=== PATIENT | male | born 1940 | race Caucasian/White ===

== ENCOUNTER 2016-11-25 17:44 | Inpatient (IN) | payer BC ==
[~2016-11-25] VITALS: Ht 188 cm; Wt 92.3 kg
[~2016-11-25 17:44] MED LIST: ALPR0.254 PO; ASPI81TA2 PO; CEFE1VIA5 IJ; CIPR500T94 PO; LISI-334 PO; SIMV20TA3 PO; TAMS0.4C2 PO
[2016-11-25 18:59] LABS: BASO % 1 % (0-3); EOS % 2 % (0-3); HEMATOCRIT 37.9 % (39.0-53.0); HEMOGLOBIN 13.1 g/dL (13.0-17.5); LYMPH # 1.6 x10^3/uL (1.0-4.8); LYMPH % 19 % (24-48); MEAN CORPUSCULAR HEMOGLOBIN 30 pg (25-35); MEAN CORPUSCULAR HGB CONC 35 g/dL (31-37); MEAN CORPUSCULAR VOLUME 87 fL (79-100); MONO % 10 % (0-9); NEUT % 69 % (31-73); PLATELET COUNT 195 x10^3/uL (140-400); RED BLOOD COUNT 4.36 x10^6/uL (4.30-5.70); RED CELL DISTRIBUTION WIDTH 14.2 % (11.5-14.5); WHITE BLOOD COUNT 8.6 x10^3/uL (4.0-11.0)
[2016-11-25 19:10] LABS: CREATININE 1.2 mg/dL (0.7-1.3); GFR 58.9; POTASSIUM 3.6 mmol/L (3.5-5.1)
[2016-11-25] MEDS ORDERED: IV NORMAL SALINE 1000ML BAG 1,000 ML IV SCH (19:15)
[2016-11-25 19:16] LABS: ALBUMIN/GLOBULIN RATIO 0.9 (1.0-1.7); TOTAL BILIRUBIN 1.3 mg/dL (0.2-1.0); TOTAL PROTEIN 6.4 g/dL (6.4-8.2)
[2016-11-25 19:29] LABS: CKMB MASS 5.3 ng/mL (0.0-3.6)
[2016-11-25] MEDS ORDERED: FUROSEMIDE 40 MG/4 ML VIAL. IVP ONE (19:30)
[2016-11-25 19:44] LABS: BILIRUBIN,URINE NEGATIVE (NEG); GLUCOSE,URINE NEGATIVE (NEG); NITRITE,URINE NEGATIVE (NEG); PROTEIN,URINE NEGATIVE (NEG-TRACE)
[2016-11-25 19:51] LABS: BACTERIA,URINE 0 /HPF (0-FEW); RBC,URINE 0 /HPF (0-2); SQUAMOUS EPITHELIAL CELL,UR OCC /LPF; WBC,URINE OCC /HPF (0-4)
[2016-11-25] MEDS: IV NORMAL SALINE 1000ML BAG 1,000 ML IV SCH (20:42)
--- NOTE | 2016-11-25 20:42 | PHYS DOC ---
Past Medical History Past Medical History: High Cholesterol, Hypertension Past Surgical History: Other Additional Past Surgical Histo: r testicle removed Alcohol Use: None Drug Use: None Adult General Chief Complaint Chief Complaint: RAPID HEART RATE HPI HPI Patient is a 76 year old male who presents with complaint of short of breath and lower show any swelling. Patient states his symptoms have been worsening over the past week. Patient states he is recently diagnosed with atrial fibrillation and possible congestive heart failure. Patient follows a Dr. Hernandez for primary care. Patient was referred for chest x-ray and echocardiogram which were completed today. Patient states that he came to the emergency department however because he started having worsening dyspnea with exertion and felt like his heart rate was racing. Patient also notes that he has had worsening edema in his extremities. Patient was started on Lasix therapy this week and states that oral Lasix has not been helping his symptoms. Patient denies chest pain, fever, or lightheadedness currently. Patient states that he is getting short of breath with minimal activity including walking across his room in his house. Review of Systems Review of Systems Constitutional: Denies fever or chills [] Eyes: Denies change in visual acuity, redness, or eye pain [] HENT: Denies nasal congestion or sore throat [] Respiratory: Shortness breath [] Cardiovascular: Lower extremity edema, dyspnea on exertion, denies chest pain [] GI: Denies abdominal pain, nausea, vomiting, bloody stools or diarrhea [] : Denies dysuria or hematuria [] Musculoskeletal: Denies back pain or joint pain [] Integument: Denies rash or skin lesions [] Neurologic: Denies headache, focal weakness or sensory changes [] Current Medications Current Medications Current Medications Medications (Trade) Dose Ordered Sig/Christa Start Time Stop Time Status Last Admin Dose Admin Furosemide (Lasix) 40 mg 1X ONCE 11/25/16 19:30 11/25/16 19:31 DC 11/25/16 19:42 40 MG Sodium Chloride 1,000 ml @ 60 mls/hr [id number] 11/25/16 19:15 11/26/16 11:54 11/25/16 19:42 60 MLS/HR Allergies Allergies Allergies Coded Allergies Type Severity Reaction Last Updated Verified levofloxacin Allergy Intermediate 11/25/16 Yes Physical Exam Physical Exam Constitutional: Alert, afebrile, appears in mild to moderate respiratory distress. [] HENT: Normocephalic, atraumatic, bilateral external ears normal, oropharynx moist, no oral exudates, nose normal. [] Eyes: PERRLA, EOMI, conjunctiva normal, no discharge. [] Neck: Normal range of motion, no tenderness, supple, no stridor. [] Cardiovascular: Tachycardiac, irregular rhythm, no murmur [] Lungs & Thorax: None restricted air movement bilaterally, rales bilaterally, no wheezes [] Abdomen: Bowel sounds normal, soft, no tenderness, no masses, no pulsatile masses. [] Skin: Warm, dry, no erythema, no rash. [] Back: No tenderness, no CVA tenderness. [] Extremities: No tenderness, no cyanosis, no clubbing, ROM intact, 3+ pedal edema in the bilateral lower extremities. [] Neurologic: Alert and oriented X 3, normal motor function, normal sensory function, no focal deficits noted. [] Current Patient Data Vital Signs Vital Signs Date Time Temp Pulse Resp B/P (MAP) Pulse Ox O2 Delivery O2 Flow Rate FiO2 11/25/16 17:57 98.1 114 22 108/75 (86) 91 Room Air 98.1 Lab Values Laboratory Tests Test 11/25/16 18:10 11/25/16 19:35 White Blood Count 8.6 x10^3/uL (4.0-11.0) Red Blood Count 4.36 x10^6/uL (4.30-5.70) Hemoglobin 13.1 g/dL (13.0-17.5) Hematocrit 37.9 % (39.0-53.0) L Mean Corpuscular Volume 87 fL (79-100) Mean Corpuscular Hemoglobin 30 pg (25-35) Mean Corpuscular Hemoglobin Concent 35 g/dL (31-37) Red Cell Distribution Width 14.2 % (11.5-14.5) Platelet Count 195 x10^3/uL (140-400) Neutrophils (%) (Auto) 69 % (31-73) Lymphocytes (%) (Auto) 19 % (24-48) L Monocytes (%) (Auto) 10 % (0-9) H Eosinophils (%) (Auto) 2 % (0-3) Basophils (%) (Auto) 1 % (0-3) Neutrophils # (Auto) 5.9 x10^3uL (1.8-7.7) Lymphocytes # (Auto) 1.6 x10^3/uL (1.0-4.8) Monocytes # (Auto) 0.9 x10^3/uL (0.0-1.1) Eosinophils # (Auto) 0.2 x10^3/uL (0.0-0.7) Basophils # (Auto) 0.0 x10^3/uL (0.0-0.2) Sodium Level 131 mmol/L (136-145) L Potassium Level 3.6 mmol/L (3.5-5.1) Chloride Level 97 mmol/L (98-107) L Carbon Dioxide Level 26 mmol/L (21-32) Anion Gap 8 (6-14) Blood Urea Nitrogen 18 mg/dL (8-26) Creatinine 1.2 mg/dL (0.7-1.3) Estimated GFR (Cockcroft-Gault) 58.9 BUN/Creatinine Ratio 15 (6-20) Glucose Level 160 mg/dL (70-99) H Calcium Level 8.0 mg/dL (8.5-10.1) L Total Bilirubin 1.3 mg/dL (0.2-1.0) H Aspartate Amino Transferase (AST) 29 U/L (15-37) Alanine Aminotransferase (ALT) 48 U/L (16-63) Alkaline Phosphatase 116 U/L (46-116) Creatine Kinase 155 U/L (39-308) Creatine Kinase MB (Mass) 5.3 ng/mL (0.0-3.6) H Creatine Kinase MB Relative Index 3.4 % (0-4) Troponin I Quantitative < 0.017 ng/mL (0.000-0.055) UV-Lpf-D-Type Natriuretic Peptide 3818 pg/mL (0-449) H Total Protein 6.4 g/dL (6.4-8.2) Albumin 3.0 g/dL (3.4-5.0) L Albumin/Globulin Ratio 0.9 (1.0-1.7) L Urine Color Yellow Urine Clarity Clear Urine pH 6.0 Urine Specific [place] 1.010 Urine Protein Negative mg/dL (NEG-TRACE) Urine Glucose (UA) Negative mg/dL (NEG) Urine Ketones (Stick) Negative mg/dL (NEG) Urine Blood Negative (NEG) Urine Nitrite Negative (NEG) Urine Bilirubin Negative (NEG) Urine Urobilinogen Dipstick 1.0 mg/dL (0.2 mg/dL) Urine Leukocyte Esterase Negative (NEG) Urine RBC 0 /HPF (0-2) Urine WBC Occ /HPF (0-4) Urine Squamous Epithelial Cells Occ /LPF Urine Bacteria 0 /HPF (0-FEW) Laboratory Tests 11/25/16 18:10 Laboratory Tests 11/25/16 18:10 EKG EKG Interpreted by me: Heart rate 124, atrial fibrillation, occasional PVCs, left axis deviation, no acute ST/T-wave abnormalities present [] Radiology/Procedures Radiology/Procedures Two-view chest x-ray performed today interpreted by the radiologist: Small right pleural effusion and right lower lobe infiltrate suggesting possible pneumonia versus congestive heart failure [] Course & Med Decision Making Course & Med Decision Making Pertinent Labs and Imaging studies reviewed. (See chart for details) Patient was hypoxic on room air requiring supplemental oxygen at 2 L/m with improvement in pulse oximetry levels. The patient's blood work and x-ray reveals signs of likely acute on chronic congestive heart failure. Pneumonia is less likely as patient is afebrile and does not have an elevated white count at this time. Patient was given 40 mg of IV Lasix in the emergency department. The patient will be admitted to the hospital for further treatment. I spoke with Dr. Denton who accepted care patient in hospital. I also spoke with Dr. Pinzon of cardiology who agreed with initial management and will follow with patient in hospital. Dragon Disclaimer Dragon Disclaimer This electronic medical record was generated, in whole or in part, using a voice recognition dictation system. Departure Departure Impression: Primary Impression: Acute congestive heart failure Additional Impressions: Pulmonary edema Atrial fibrillation Mild protein malnutrition Disposition: ADMITTED INPATIENT Admitting Physician: Other Condition: GUARDED Referrals: CHAPIN HERNANDEZ MD (PCP) Problem Qualifiers Primary Impression: Acute congestive heart failure Congestive heart failure type: unspecified congestive heart failure type Qualified Codes: I50.9 - Heart failure, unspecified Additional Impressions: Pulmonary edema Chronicity: acute Qualified Codes: J81.0 - Acute pulmonary edema Atrial fibrillation Atrial fibrillation type: persistent Qualified Codes: I48.1 - Persistent atrial fibrillation MARLIN GU MD November 25, 2016 20:42
[2016-11-25] MEDS ORDERED: ONDANSETRON PF 4 MG/2 ML VIAL. IV PRN (20:45)
[2016-11-25] MEDS ORDERED: ACETAMINOPHEN 325 MG TABLET. PO PRN (20:45)
--- NOTE | 2016-11-25 21:17 | ACF ---
Admission Forms Criteria HEART FAILURE: COMMON COMPLICATIONS Clinical Indications for Inpatient Care (Place 'X' for any and all applicable criteria): Ongoing inpatient care may be indicated for heart failure with ANY ONE of the following (1)(2)(3)(4)(5): [ ]I. Ongoing need for care for primary condition requiring frequent therapy adjustments because of changes in cardiac function (eg, drug dosage changes for drugs that are renally metabolized) [ ]II. New-onset heart failure [ ]III. Heart failure with decreased urine output not responsive to attempts to optimize volume status [ ]IV. Acute cardiac ischemia causing or associated with failure [X ]V. Complications of heart failure, including ANY ONE of the following: [ ]a) Pericardial effusion [ ]b) Symptomatic pleural effusion [ ]c) O2 saturation <90% or PO2 < 60 mm Hg (8.0 kPa) on room air or require baseline supplemental O2 [ ]d) Tachypnea [X ]e) Dyspnea [ ]f) Syncope [ ]g) Change in mental status [ ]h) Acute renal insufficiency that is severe (reduction of more than 50% in estimated glomerular filtration rate from baseline) or progressive reduction of more than 25% in estimated glomerular filtration rate from baseline, with creatinine continuing to rise) [ ]i) Hemodynamic instability [ ]j) Anasarca [ ]k) Clinically significant metabolic abnormalities due to heart failure (eg, new-onset metabolic acidosis) Extended stay beyond goal length of stay for primary condition may be needed until ALL of the following are present(1)(3): [ ]a) Stable and effective diuretic regimen established (or patient on stable dialysis regimen if in chronic renal failure) [ ]b) Breathing comfortably at rest [ ]c) Saturation of arterial oxygen greater than 90% or at acceptable baseline [ ]d) Pulmonary edema absent or improved [ ]e) Hemodynamic stability [ ]f) Volume status acceptable on oral medication [ ]g) Peripheral or sacral edema absent or improved [ ]h) Renal function stable and manageable at a lower level of care [ ]i) Complications (eg, pleural effusion) resolved or manageable at a lower level of care [ ]j) Patient or caregiver has received written discharge instructions or educational material addressing activity level, diet, discharge medications, follow-up appointment, weight monitoring, and what to do if symptoms worsen The original [employer] [facility] content created by [employer] has been revised. The portions of the content which have been revised are identified through the use of italic text or in bold, and [facility] has neither reviewed nor approved the modified material.All other unmodified content is copyright [facility]. Please see references footnoted in the original [facility] edition 2016 Admission Criteria Met?: Yes KAYY DRAPER November 25, 2016 21:17
[2016-11-25 23:10] VITALS: BP 133/76
[2016-11-26] MEDS ORDERED: METO25TA4 PO (00:14)
[2016-11-26] MEDS ORDERED: AMLO5TAB2 PO (00:14)
[2016-11-26] MEDS ORDERED: ASPI-482 PO (00:14)
[2016-11-26] MEDS ORDERED: ATOR20TA58 PO (00:14)
[2016-11-26] MEDS ORDERED: RIVA20TA2 PO (00:14)
[2016-11-26] MEDS ORDERED: DILT180C29 PO (00:14)
[2016-11-26] MEDS ORDERED: VENTOLIN HFA18 GM INH (00:14)
--- NOTE | 2016-11-26 01:39 | HP ---
ADMIT DATE: 11/25/2016 CHIEF COMPLAINT: Shortness of breath, lower extremity swelling. HISTORY OF PRESENT ILLNESS: The patient is a 76-year-old gentleman with past medical history of AFib, who presented to the Emergency Room with increased lower extremity swelling and shortness of breath. He relates that the lower extremity edema actually has prompted him to seek advice from his primary care physician several times in recent past. He states that Dr. Rubio seemed to be more interested in his heart status than in his legs, clearly patient not understanding the connection. He had a chest x-ray an echocardiogram completed this day on an outpatient basis by Dr. Pinzon. Nevertheless, afterwards he felt that his shortness of breath was getting worse and his heart seemed to be racing as well so he decided to get immediate attention in the Emergency Room. He denies any chest pain, any dizziness, diaphoresis, nausea, vomiting, fevers, chills or any other symptoms. In the Emergency Room, chest x-ray showed borderline cardiomegaly with aortic arthrosclerosis as well as right basilar infiltrate and small pleural effusion, pneumonia versus low grade congestive heart failure. PAST MEDICAL HISTORY: Atrial fibrillation, question CHF; BPH, status post prostate surgery [address] Ojeda. FAMILY HISTORY: No heart history known to patient. SOCIAL HISTORY: Lives with his , smokes about a pack a day for the past 60 years. Denies any alcohol or drug use. ALLERGIES: LEVOFLOXACIN, UNKNOWN REACTION. MEDICATIONS: MAR reconciled with home medications. REVIEW OF SYSTEMS: Shortness of breath, palpitations as per HPI. Shortness breath is essentially unchanged, palpitations currently resolved. No other symptoms in rest of organ system review. PHYSICAL EXAMINATION: VITAL SIGNS: Show a blood pressure of 108/75, heart rate at 114, respiratory rate at 22. He is afebrile. GENERAL: This is an overweight 76-year-old gentleman, alert and oriented, in no acute distress. HEENT: Shows no scleral icterus. Oral mucosa is moist. NECK: Supple. LUNGS: Clear to auscultation bilaterally. HEART: Tachycardic. ABDOMEN: Positive bowel sounds, soft, nontender. EXTREMITIES: Showed 2+ edema, right greater than left. LABORATORY DATA: CBC with a WBC of 8.6, hemoglobin 13.1, platelets of 195. Chemistries with a BUN and creatinine of 18 and 1.2, sodium at 131, potassium at 3.6. LFTs within normal. Initial troponin negative. ProBNP 3818, albumin at 2.8. Urine is negative. RADIOGRAPHIC IMAGING: Chest x-ray as reported above with borderline cardiomegaly and right basilar infiltrate and small pleural effusion. ASSESSMENT AND PLAN: The patient is a 76-year-old gentleman with atrial fibrillation in RVR as well as suspected congestive heart failure given his proBNP. He has been given Lasix IV in the Emergency Room with good diuresis. We will continue p.r.n. Serial enzymes will be obtained to rule out acute coronary syndrome. His senior design engineering specialist, Dr. Pinzon, will be notified. The patient relates that he actually recently has been started on a 10A inhibitor, although the diagnosis of atrial fibrillation is a new one to him. As echo has been done just earlier today, we will await results. Hopefully, we can get these available from the office. We will obtain some additional labs for risk stratification. Lipid profile is pending for the morning. We will also obtain hemoglobin A1c. We will continue home medications for the time being. ALLAN TALLEY MD DR: UR/nts JOB#: [id number] / [id number] NANCY
[2016-11-26] MEDS: ALPRAZolam 0.5 MG TABLET PO PRN ×2 (02:06→21:53)
[2016-11-26] MEDS: IV NORMAL SALINE 1000ML BAG 1,000 ML IV SCH ×2 (02:11→12:02)
[2016-11-26 03:00] VITALS: BP 116/72
[2016-11-26 03:35] LABS: BASO % 0 % (0-3); EOS % 2 % (0-3); HEMATOCRIT 35.5 % (39.0-53.0); HEMOGLOBIN 12.3 g/dL (13.0-17.5); LYMPH # 1.4 x10^3/uL (1.0-4.8); LYMPH % 14 % (24-48); MEAN CORPUSCULAR HEMOGLOBIN 30 pg (25-35); MEAN CORPUSCULAR HGB CONC 35 g/dL (31-37); MEAN CORPUSCULAR VOLUME 87 fL (79-100); MONO % 10 % (0-9); NEUT % 74 % (31-73); PLATELET COUNT 176 x10^3/uL (140-400); RED BLOOD COUNT 4.09 x10^6/uL (4.30-5.70); RED CELL DISTRIBUTION WIDTH 14.1 % (11.5-14.5); WHITE BLOOD COUNT 10.3 x10^3/uL (4.0-11.0)
[2016-11-26 03:48] LABS: CALCIUM 7.8 mg/dL (8.5-10.1); CREATININE 1.2 mg/dL (0.7-1.3); GFR 58.9; POTASSIUM 3.1 mmol/L (3.5-5.1)
--- NOTE | 2016-11-26 06:44 | EKG ---
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
[2016-11-26 07:55] VITALS: BP 116/72
--- NOTE | 2016-11-26 10:29 | PDOC2 ---
CARDIAC CONSULT DATE OF CONSULT Date of Consult DATE: 11/26/16 TIME: 10:10 REASON FOR CONSULT Reason for Consult: CHF REFERRING PHYSICIAN Referring Physician: Dr Roa SOURCE Source: Chart review, Patient HISTORY OF PRESENT ILLNESS HISTORY OF PRESENT ILLNESS This is a 76 yo male who presented with complaints of shortness of breath and lower extremity edema. Patient reports symptoms have been ongoing for the last 3 weeks. Was started on low-dose Lasix late last week, which has not significantly improved symptoms. Was also recently found to be in atrial fibrillation and started om rate control therapy and Xarelto for stroke prevention. Echo was obtained, which revealed significantly depressed LV function. Patient denies any chest pain, palpitations, dizziness, diaphoresis, or nausea/vomiting. Has had significant LE edema, worse in the RLE, and orthopnea. Additionally, has had significant CASTILLO recently, limited his ambulation. PAST MEDICAL HISTORY Cardiovascular: AFIB, HTN, Hyperlipidemia Pulmonary: No pertinent hx GI: No pertinent hx Heme/Onc: No pertinent hx Hepatobiliary: No pertinent hx Psych: No pertinent hx Rheumatologic: No pertinent hx ENT: No pertinent hx Renal/: Benign prostatic enlarg. Endocrine: Diabetes Dermatology: No pertinent hx PAST SURGICAL HISTORY Past Surgical History: Other (prostate biopsy, radical right orchiectomy ) FAMILY HISTORY Family History: Cancer, Heart Disease SOCIAL HISTORY Smoke: 1 pack per day ALCOHOL: none Lives: with Family CURRENT MEDICATIONS CURRENT MEDICATIONS Current Medications Medications (Trade) Dose Ordered Sig/Christa Route PRN Reason Start Time Stop Time Status Last Admin Dose Admin Sodium Chloride 1,000 ml @ 60 mls/hr [id number] IV 11/25/16 19:15 11/26/16 11:54 11/25/16 19:42 Furosemide (Lasix) 40 mg 1X ONCE IVP 11/25/16 19:30 11/25/16 19:31 DC 11/25/16 19:42 Alprazolam (Xanax) 0.5 mg PRN Q6HRS PRN PO ANXIETY / AGITATION 11/26/16 00:00 11/26/16 02:06 ALLERGIES ALLERGIES: Coded Allergies: levofloxacin (Verified Allergy, Intermediate, 11/25/16) swelling ROS Review of System 14 point ROS conducted with pertinent positives noted above in HPI. PHYSICAL EXAM General: Alert, Oriented X3, Cooperative HEENT: Atraumatic, Mucous membr. moist/pink Lungs: Clear to auscultation, Normal air movement Heart: Normal S1, Normal S2, Other (2/6 systolic murmur, IRR- tele AFIB with intermittent rate elevation) Abdomen: Soft, No tenderness Extremities: Normal pulses, Other (2+ LLE and 3+ RLE edema) Skin: No breakdown, No significant lesion Neuro: Normal speech, Sensation intact Psych/Mental Status: Mental status NL, Mood NL MUSCULOSKELETAL: Osteoarthritic changes both hands VITALS VITALS Vital Signs Date Time Temp Pulse Resp B/P (MAP) Pulse Ox O2 Delivery O2 Flow Rate FiO2 11/26/16 08:19 Nasal Cannula 3.0 11/26/16 07:55 98.2 114 21 116/72 (87) 95 98.2 LABS Lab: Laboratory Tests Test 11/25/16 18:10 11/25/16 19:35 11/26/16 02:50 White Blood Count 8.6 x10^3/uL (4.0-11.0) 10.3 x10^3/uL (4.0-11.0) Red Blood Count 4.36 x10^6/uL (4.30-5.70) 4.09 x10^6/uL (4.30-5.70) Hemoglobin 13.1 g/dL (13.0-17.5) 12.3 g/dL (13.0-17.5) Hematocrit 37.9 % (39.0-53.0) 35.5 % (39.0-53.0) Mean Corpuscular Volume 87 fL (79-100) 87 fL (79-100) Mean Corpuscular Hemoglobin 30 pg (25-35) 30 pg (25-35) Mean Corpuscular Hemoglobin Concent 35 g/dL (31-37) 35 g/dL (31-37) Red Cell Distribution Width 14.2 % (11.5-14.5) 14.1 % (11.5-14.5) Platelet Count 195 x10^3/uL (140-400) 176 x10^3/uL (140-400) Neutrophils (%) (Auto) 69 % (31-73) 74 % (31-73) Lymphocytes (%) (Auto) 19 % (24-48) 14 % (24-48) Monocytes (%) (Auto) 10 % (0-9) 10 % (0-9) Eosinophils (%) (Auto) 2 % (0-3) 2 % (0-3) Basophils (%) (Auto) 1 % (0-3) 0 % (0-3) Neutrophils # (Auto) 5.9 x10^3uL (1.8-7.7) 7.6 x10^3uL (1.8-7.7) Lymphocytes # (Auto) 1.6 x10^3/uL (1.0-4.8) 1.4 x10^3/uL (1.0-4.8) Monocytes # (Auto) 0.9 x10^3/uL (0.0-1.1) 1.0 x10^3/uL (0.0-1.1) Eosinophils # (Auto) 0.2 x10^3/uL (0.0-0.7) 0.2 x10^3/uL (0.0-0.7) Basophils # (Auto) 0.0 x10^3/uL (0.0-0.2) 0.0 x10^3/uL (0.0-0.2) Sodium Level 131 mmol/L (136-145) 135 mmol/L (136-145) Potassium Level 3.6 mmol/L (3.5-5.1) 3.1 mmol/L (3.5-5.1) Chloride Level 97 mmol/L (98-107) 101 mmol/L (98-107) Carbon Dioxide Level 26 mmol/L (21-32) 28 mmol/L (21-32) Anion Gap 8 (6-14) 6 (6-14) Blood Urea Nitrogen 18 mg/dL (8-26) 14 mg/dL (8-26) Creatinine 1.2 mg/dL (0.7-1.3) 1.2 mg/dL (0.7-1.3) Estimated GFR (Cockcroft-Gault) 58.9 58.9 BUN/Creatinine Ratio 15 (6-20) Glucose Level 160 mg/dL (70-99) 182 mg/dL (70-99) Calcium Level 8.0 mg/dL (8.5-10.1) 7.8 mg/dL (8.5-10.1) Total Bilirubin 1.3 mg/dL (0.2-1.0) Aspartate Amino Transf (AST/SGOT) 29 U/L (15-37) Alanine Aminotransferase (ALT/SGPT) 48 U/L (16-63) Alkaline Phosphatase 116 U/L (46-116) Creatine Kinase 155 U/L (39-308) Creatine Kinase MB (Mass) 5.3 ng/mL (0.0-3.6) Creatine Kinase MB Relative Index 3.4 % (0-4) Troponin I Quantitative < 0.017 ng/mL (0.000-0.055) EQ-Fbi-G-Type Natriuretic Peptide 3818 pg/mL (0-449) Total Protein 6.4 g/dL (6.4-8.2) Albumin 3.0 g/dL (3.4-5.0) Albumin/Globulin Ratio 0.9 (1.0-1.7) Urine Color Yellow Urine Clarity Clear Urine pH 6.0 Urine Specific [place] 1.010 Urine Protein Negative mg/dL (NEG-TRACE) Urine Glucose (UA) Negative mg/dL (NEG) Urine Ketones (Stick) Negative mg/dL (NEG) Urine Blood Negative (NEG) Urine Nitrite Negative (NEG) Urine Bilirubin Negative (NEG) Urine Urobilinogen Dipstick 1.0 mg/dL (0.2 mg/dL) Urine Leukocyte Esterase Negative (NEG) Urine RBC 0 /HPF (0-2) Urine WBC Occ /HPF (0-4) Urine Squamous Epithelial Cells Occ /LPF Urine Bacteria 0 /HPF (0-FEW) ECHOCARDIOGRAM ECHOCARDIOGRAM <Conclusion> The Left Ventricle is mildly dilated. Left ventricle systolic function is severely impaired. The Ejection Fraction is less than 20%. There is severe global hypokinesis of the left ventricle. There is mild concentric left ventricular hypertrophy. The right ventricle is moderately dilated. There is no significant aortic valvular stenosis. Doppler and Color Flow revealed moderate aortic regurgitation. Doppler and Color-flow revealed mild mitral regurgitation. Doppler and Color Flow revealed moderate tricuspid regurgitation. The PA pressure was estimated at 48 mmHg. DATE: 11/25/16 151 ASSESSMENT/PLAN ASSESSMENT/PLAN 1. Acute on chronic systolic heart failure Echo 11/25/16 with depressed LV function; EF 20% resume DESTINI. convert BB to Toprol and increase for optimization will likely need further ischemic evaluation to rule out ICM. NPO after MN continue diuresis with monitoring of renal function. Add scheduled potassium will need echo in 3 months to evaluation need for ICD in prevention of SCD 2. Dyspnea secondary to a/c HF improved with diuresis 3. Atrial Fibrillation stop Cardizem and increase BB for rate control with depressed LV function consider for EBONIE with CV. on ASA and Xarelto for stroke prevention 4. Hypertension controlled with meds 5. Hyperlipidemia check lipids resume statin therapy 6. Hypokalemia replace. Check Mg 7. LE edema RLE significantly more edematous will obtain LE venous dopp to r/o DVT Problems: MAMI SERRATO APRN November 26, 2016 10:29
[2016-11-26] MEDS ORDERED: POTASSIUM CHLORIDE 20 MEQ TABLET.ER. PO ONE (10:30)
[2016-11-26 10:41] VITALS: BP 112/70
[2016-11-26] MEDS: ASPIRIN CHEWABLE 81 MG TABLET. PO SCH (11:07)
[2016-11-26 11:26] LABS: CHOLESTEROL/HDL RATIO 2.5
[2016-11-26] MEDS: POTASSIUM CHLORIDE 20 MEQ TABLET.ER. PO SCH (11:38)
[2016-11-26] MEDS ORDERED: MAGNESIUM SULFATE 2GM 50 ML IV ONE (12:00)
[2016-11-26] MEDS: METOPROLOL SUCC 24HR ER 25 MG TAB.ER.24H. PO SCH (12:24)
[2016-11-26] MEDS: FUROSEMIDE 40 MG/4 ML VIAL. IVP SCH (12:24)
--- NOTE | 2016-11-26 13:01 | PDOC ---
PROGRESS NOTES Chief Complaint Chief Complaint Atrial fibrillation w/ RVR ASSESSMENT AND PLAN: 1. Afib w/ RVR: rate sl above 100, on metoprolol 75. as per cards 2. CHF: systolic by echo yesterday (EF <20%). IV lasix 3. HTN: well controlled on BB, DESTINI-I 4. OAC: started on xarelto last week for afib 5. DM: ISS. HgbA1c pending. 6. HLD: well controlled on statin 7. Hyponatremia: suspect 2/2 fluid overload. monitor with diuresis 8. CKD3: stable. History of Present Illness History of Present Illness breathing a little easier. no CP. no GI sx Vitals Vitals Vital Signs Date Time Temp Pulse Resp B/P (MAP) Pulse Ox O2 Delivery O2 Flow Rate FiO2 11/26/16 12:24 105 112/70 11/26/16 10:41 98.5 21 91 Nasal Cannula 3.0 98.5 Physical Exam General: Alert, Oriented X3, Cooperative Heart: Normal S1, Normal S2, Other (2/6 systolic murmur, IRR- tele AFIB with intermittent rate elevation) Abdomen: Soft, No tenderness Extremities: Normal pulses, Other (2+ LLE and 3+ RLE edema) Skin: No breakdown, No significant lesion Labs LABS Laboratory Tests Test 11/25/16 18:10 11/25/16 19:35 11/26/16 02:50 White Blood Count 8.6 x10^3/uL (4.0-11.0) 10.3 x10^3/uL (4.0-11.0) Red Blood Count 4.36 x10^6/uL (4.30-5.70) 4.09 x10^6/uL (4.30-5.70) Hemoglobin 13.1 g/dL (13.0-17.5) 12.3 g/dL (13.0-17.5) Hematocrit 37.9 % (39.0-53.0) 35.5 % (39.0-53.0) Mean Corpuscular Volume 87 fL (79-100) 87 fL (79-100) Mean Corpuscular Hemoglobin 30 pg (25-35) 30 pg (25-35) Mean Corpuscular Hemoglobin Concent 35 g/dL (31-37) 35 g/dL (31-37) Red Cell Distribution Width 14.2 % (11.5-14.5) 14.1 % (11.5-14.5) Platelet Count 195 x10^3/uL (140-400) 176 x10^3/uL (140-400) Neutrophils (%) (Auto) 69 % (31-73) 74 % (31-73) Lymphocytes (%) (Auto) 19 % (24-48) 14 % (24-48) Monocytes (%) (Auto) 10 % (0-9) 10 % (0-9) Eosinophils (%) (Auto) 2 % (0-3) 2 % (0-3) Basophils (%) (Auto) 1 % (0-3) 0 % (0-3) Neutrophils # (Auto) 5.9 x10^3uL (1.8-7.7) 7.6 x10^3uL (1.8-7.7) Lymphocytes # (Auto) 1.6 x10^3/uL (1.0-4.8) 1.4 x10^3/uL (1.0-4.8) Monocytes # (Auto) 0.9 x10^3/uL (0.0-1.1) 1.0 x10^3/uL (0.0-1.1) Eosinophils # (Auto) 0.2 x10^3/uL (0.0-0.7) 0.2 x10^3/uL (0.0-0.7) Basophils # (Auto) 0.0 x10^3/uL (0.0-0.2) 0.0 x10^3/uL (0.0-0.2) Sodium Level 131 mmol/L (136-145) 135 mmol/L (136-145) Potassium Level 3.6 mmol/L (3.5-5.1) 3.1 mmol/L (3.5-5.1) Chloride Level 97 mmol/L (98-107) 101 mmol/L (98-107) Carbon Dioxide Level 26 mmol/L (21-32) 28 mmol/L (21-32) Anion Gap 8 (6-14) 6 (6-14) Blood Urea Nitrogen 18 mg/dL (8-26) 14 mg/dL (8-26) Creatinine 1.2 mg/dL (0.7-1.3) 1.2 mg/dL (0.7-1.3) Estimated GFR (Cockcroft-Gault) 58.9 58.9 BUN/Creatinine Ratio 15 (6-20) Glucose Level 160 mg/dL (70-99) 182 mg/dL (70-99) Calcium Level 8.0 mg/dL (8.5-10.1) 7.8 mg/dL (8.5-10.1) Total Bilirubin 1.3 mg/dL (0.2-1.0) Aspartate Amino Transf (AST/SGOT) 29 U/L (15-37) Alanine Aminotransferase (ALT/SGPT) 48 U/L (16-63) Alkaline Phosphatase 116 U/L (46-116) Creatine Kinase 155 U/L (39-308) Creatine Kinase MB (Mass) 5.3 ng/mL (0.0-3.6) Creatine Kinase MB Relative Index 3.4 % (0-4) Troponin I Quantitative < 0.017 ng/mL (0.000-0.055) [id number]-Type Natriuretic Peptide 3818 pg/mL (0-449) Total Protein 6.4 g/dL (6.4-8.2) Albumin 3.0 g/dL (3.4-5.0) Albumin/Globulin Ratio 0.9 (1.0-1.7) Urine Color Yellow Urine Clarity Clear Urine pH 6.0 Urine Specific [place] 1.010 Urine Protein Negative mg/dL (NEG-TRACE) Urine Glucose (UA) Negative mg/dL (NEG) Urine Ketones (Stick) Negative mg/dL (NEG) Urine Blood Negative (NEG) Urine Nitrite Negative (NEG) Urine Bilirubin Negative (NEG) Urine Urobilinogen Dipstick 1.0 mg/dL (0.2 mg/dL) Urine Leukocyte Esterase Negative (NEG) Urine RBC 0 /HPF (0-2) Urine WBC Occ /HPF (0-4) Urine Squamous Epithelial Cells Occ /LPF Urine Bacteria 0 /HPF (0-FEW) Magnesium Level 1.7 mg/dL (1.8-2.4) Triglycerides Level 54 mg/dL (0-150) Cholesterol Level 78 mg/dL (0-200) LDL Cholesterol, Calculated 36 mg/dL (0-100) VLDL Cholesterol, Calculated 11 mg/dL (0-40) Non-HDL Cholesterol Calculated 47 mg/dL (0-129) HDL Cholesterol 31 mg/dL (40-60) Cholesterol/HDL Ratio 2.5 ALLAN TALLEY MD November 26, 2016 13:01
--- NOTE | 2016-11-26 14:04 | RAD ---
APPROVED REPORT Right Lower Extremity Venous Study for DVT Patient Location: IN-PATIENT Indications Lower Extremity Edema: Right Stasis Disease Risk Factors Cardiac Disease Findings Marin scale images of the right lower extremity were obtained to evaluate for deep venous thrombosis. The right common femoral vein, superficial femoral vein and popliteal veins are free of thrombus and appear to be fully compressible. Spectral waveforms and color Doppler in these veins do not reveal an y evidence of obstruction to flow. The below-knee veins were not visualized. Critical Notification Critical Value: No <Conclusion> No evidence of DVT in the visualized right lower extremity common femoral, superficial femoral and po pliteal veins. The below-knee vessels were not well visualized.
[2016-11-26] MEDS ORDERED: DEXTROSE 50% 25 GM / 50ML DISP.SYRIN. IV PRN (14:15)
[2016-11-26 14:57] VITALS: BP 112/78
[2016-11-26] MEDS: INSULIN ASPART 300 UNITS/3 ML INSULN.PEN SQ SCH (17:00)
[2016-11-26] MEDS ORDERED: RIVAROXABAN 15 MG TABLET. PO SCH (17:00)
[2016-11-26] MEDS: TAMSULOSIN 0.4 MG CAP.ER.24H. PO SCH (17:18)
[2016-11-26] MEDS: LISINOPRIL 20 MG TABLET PO SCH (17:18)
[2016-11-26] MEDS ORDERED: NICOTINE 21MG PATCH. TD ONE (18:45)
[2016-11-26] MEDS: NICOTINE 21MG PATCH. TD SCH (19:08)
[2016-11-26 19:20] VITALS: BP 105/73
[2016-11-26] MEDS ORDERED: SIMVASTATIN 20 MG TABLET PO SCH (21:00)
[2016-11-26] MEDS: ATORVASTATIN CALCIUM 20 MG TABLET PO SCH (21:56)
[2016-11-26 22:55] VITALS: BP 107/57
[2016-11-27 03:50] VITALS: BP 115/58
[2016-11-27 06:29] LABS: CALCIUM 8.3 mg/dL (8.5-10.1); CREATININE 1.2 mg/dL (0.7-1.3); GFR 58.9; POTASSIUM 3.6 mmol/L (3.5-5.1)
[2016-11-27 06:42] LABS: BASO % 1 % (0-3); EOS % 3 % (0-3); HEMATOCRIT 37.4 % (39.0-53.0); HEMOGLOBIN 12.2 g/dL (13.0-17.5); LYMPH # 1.3 x10^3/uL (1.0-4.8); LYMPH % 16 % (24-48); MEAN CORPUSCULAR HEMOGLOBIN 29 pg (25-35); MEAN CORPUSCULAR HGB CONC 33 g/dL (31-37); MEAN CORPUSCULAR VOLUME 89 fL (79-100); MONO % 10 % (0-9); NEUT % 70 % (31-73); PLATELET COUNT 167 x10^3/uL (140-400); RED BLOOD COUNT 4.19 x10^6/uL (4.30-5.70); RED CELL DISTRIBUTION WIDTH 14.6 % (11.5-14.5); WHITE BLOOD COUNT 8.2 x10^3/uL (4.0-11.0)
[2016-11-27 07:00] VITALS: BP 106/67
[2016-11-27] MEDS: INSULIN ASPART 300 UNITS/3 ML INSULN.PEN SQ SCH ×3 (08:00→17:00)
[2016-11-27] MEDS: ASPIRIN CHEWABLE 81 MG TABLET. PO SCH (08:30)
[2016-11-27] MEDS: METOPROLOL SUCC 24HR ER 25 MG TAB.ER.24H. PO SCH (08:32)
[2016-11-27] MEDS: FUROSEMIDE 40 MG/4 ML VIAL. IVP SCH (08:33)
[2016-11-27] MEDS: POTASSIUM CHLORIDE 20 MEQ TABLET.ER. PO SCH (08:33)
[2016-11-27] MEDS: NICOTINE 21MG PATCH. TD SCH (08:33)
--- NOTE | 2016-11-27 08:51 | PDOC ---
PROGRESS NOTES Chief Complaint Chief Complaint Atrial fibrillation w/ RVR ASSESSMENT AND PLAN: 1. Afib w/ RVR: rate borderline (~100); BB increased. 2. CHF: systolic by echo yesterday (EF <20%). IV lasix. much improved symptomatically. cath in AM 3. HTN: well controlled on BB, DESTINI-I 4. OAC: started on xarelto last week for afib by PCP. currently on lovenox 5. DM: ISS. HgbA1c pending. 6. HLD: well controlled on statin 7. Hyponatremia: suspect 2/2 fluid overload. monitor with diuresis 8. CKD3: stable. History of Present Illness History of Present Illness brreathing much improved, no CP. no dizziness. LE edema better as well Vitals Vitals Vital Signs Date Time Temp Pulse Resp B/P (MAP) Pulse Ox O2 Delivery O2 Flow Rate FiO2 11/27/16 08:32 99 106/67 11/27/16 07:52 Nasal Cannula 3.0 11/27/16 07:00 97.9 20 92 97.9 Physical Exam General: Alert, Oriented X3, Cooperative Heart: Normal S1, Normal S2, Other (2/6 systolic murmur, IRR- tele AFIB with intermittent rate elevation) Abdomen: Soft, No tenderness Extremities: Normal pulses, Other (1-2+ edema LE) Skin: No breakdown, No significant lesion Labs LABS Laboratory Tests Test 11/26/16 20:43 11/27/16 05:40 Glucose (Fingerstick) 113 mg/dL (70-99) White Blood Count 8.2 x10^3/uL (4.0-11.0) Red Blood Count 4.19 x10^6/uL (4.30-5.70) Hemoglobin 12.2 g/dL (13.0-17.5) Hematocrit 37.4 % (39.0-53.0) Mean Corpuscular Volume 89 fL (79-100) Mean Corpuscular Hemoglobin 29 pg (25-35) Mean Corpuscular Hemoglobin Concent 33 g/dL (31-37) Red Cell Distribution Width 14.6 % (11.5-14.5) Platelet Count 167 x10^3/uL (140-400) Neutrophils (%) (Auto) 70 % (31-73) Lymphocytes (%) (Auto) 16 % (24-48) Monocytes (%) (Auto) 10 % (0-9) Eosinophils (%) (Auto) 3 % (0-3) Basophils (%) (Auto) 1 % (0-3) Neutrophils # (Auto) 5.7 x10^3uL (1.8-7.7) Lymphocytes # (Auto) 1.3 x10^3/uL (1.0-4.8) Monocytes # (Auto) 0.8 x10^3/uL (0.0-1.1) Eosinophils # (Auto) 0.3 x10^3/uL (0.0-0.7) Basophils # (Auto) 0.0 x10^3/uL (0.0-0.2) Sodium Level 137 mmol/L (136-145) Potassium Level 3.6 mmol/L (3.5-5.1) Chloride Level 101 mmol/L (98-107) Carbon Dioxide Level 28 mmol/L (21-32) Anion Gap 8 (6-14) Blood Urea Nitrogen 14 mg/dL (8-26) Creatinine 1.2 mg/dL (0.7-1.3) Estimated GFR (Cockcroft-Gault) 58.9 Glucose Level 114 mg/dL (70-99) Calcium Level 8.3 mg/dL (8.5-10.1) Magnesium Level 2.0 mg/dL (1.8-2.4) ALLAN TALLEY MD November 27, 2016 08:51
--- NOTE | 2016-11-27 09:39 | PDOC ---
CARDIO Progress Notes Date and Time Date of Service 11/27/16 Time of Evaluation 0930 Subjective Subjective: No Chest Pain, No Palpitations, Other (SOA improved. Mild cough ) Vitals Vitals Vital Signs Date Time Temp Pulse Resp B/P (MAP) Pulse Ox O2 Delivery O2 Flow Rate FiO2 11/27/16 08:32 99 106/67 11/27/16 07:52 Nasal Cannula 3.0 11/27/16 07:00 97.9 20 92 97.9 Weight Weight [ ] Input and Output Intake and Output Intake and Output 11/27/16 07:00 Intake Total 1190 ml Balance 1190 ml Intake Oral 1140 ml IV Total 50 ml # Voids 3 Laboratory Labs Laboratory Tests Test 11/26/16 20:43 11/27/16 05:40 Glucose (Fingerstick) 113 mg/dL (70-99) White Blood Count 8.2 x10^3/uL (4.0-11.0) Red Blood Count 4.19 x10^6/uL (4.30-5.70) Hemoglobin 12.2 g/dL (13.0-17.5) Hematocrit 37.4 % (39.0-53.0) Mean Corpuscular Volume 89 fL (79-100) Mean Corpuscular Hemoglobin 29 pg (25-35) Mean Corpuscular Hemoglobin Concent 33 g/dL (31-37) Red Cell Distribution Width 14.6 % (11.5-14.5) Platelet Count 167 x10^3/uL (140-400) Neutrophils (%) (Auto) 70 % (31-73) Lymphocytes (%) (Auto) 16 % (24-48) Monocytes (%) (Auto) 10 % (0-9) Eosinophils (%) (Auto) 3 % (0-3) Basophils (%) (Auto) 1 % (0-3) Neutrophils # (Auto) 5.7 x10^3uL (1.8-7.7) Lymphocytes # (Auto) 1.3 x10^3/uL (1.0-4.8) Monocytes # (Auto) 0.8 x10^3/uL (0.0-1.1) Eosinophils # (Auto) 0.3 x10^3/uL (0.0-0.7) Basophils # (Auto) 0.0 x10^3/uL (0.0-0.2) Sodium Level 137 mmol/L (136-145) Potassium Level 3.6 mmol/L (3.5-5.1) Chloride Level 101 mmol/L (98-107) Carbon Dioxide Level 28 mmol/L (21-32) Anion Gap 8 (6-14) Blood Urea Nitrogen 14 mg/dL (8-26) Creatinine 1.2 mg/dL (0.7-1.3) Estimated GFR (Cockcroft-Gault) 58.9 Glucose Level 114 mg/dL (70-99) Calcium Level 8.3 mg/dL (8.5-10.1) Magnesium Level 2.0 mg/dL (1.8-2.4) Physical Exam HEENT: Neck Supple W Full Motion Chest: Symmetric LUNGS: Clear to Auscultation Heart: murmurs (2/6 systolic murmur ), irregularly irregular (tele AFIB with controlled ventricular rate ) Abdomen: Soft N/T Neurology: alert, oriented, follow commands Assessment Assessment 1. Acute on chronic systolic heart failure Echo 11/25/16 with depressed LV function; EF 20% will need cardiac cath to r/o ischemic etiology. R/b/a discussed and patient is agreeable. Will plan for cardiac cath in am. continue diuresis with monitoring of renal function. repeat echo in 3-4 months to evaluation need for ICD in prevention of SCD 2. Dyspnea secondary to a/c HF improved with diuresis 3. Atrial Fibrillation rate intermittently elevated overnight. Will increase BB as BP allows. If HR remains elevated, will add digoxin. Resume Xarelto post-cath. ASA and Lovenox for stroke prevention, meanwhile plan for outpatient EBONIE with CV after 3 week of OAC unless patient becomes unstable. 4. Hypertension controlled with meds 5. Hyperlipidemia LDL=36 statin therapy 6. Hypokalemia resolved 7. LE edema improved with diuresis RLE venous dopp neg for DVT 8. Diabetes management per PCP MAMI SERRATO APRN November 27, 2016 09:39
[2016-11-27 11:00] VITALS: BP 101/62
[2016-11-27] MEDS ORDERED: METOPROLOL TART IMMED RELEASE 25 MG TABLET. PO ONE (11:15)
[2016-11-27] MEDS ORDERED: POTASSIUM CHLORIDE 20 MEQ TABLET.ER. PO ONE (11:15)
[2016-11-27] MEDS ORDERED: FUROSEMIDE 40 MG/4 ML VIAL. IVP ONE (14:00)
[2016-11-27] MEDS: ANTI-COAG MONITOR BY PHARMACY. MC PRN (14:08)
[2016-11-27 15:00] VITALS: BP 94/59
[2016-11-27] MEDS: TAMSULOSIN 0.4 MG CAP.ER.24H. PO SCH (18:23)
[2016-11-27] MEDS: LISINOPRIL 20 MG TABLET PO SCH (18:24)
[2016-11-27 19:33] VITALS: BP 124/79
[2016-11-27] MEDS: ATORVASTATIN CALCIUM 20 MG TABLET PO SCH (21:10)
[2016-11-27] MEDS: ALPRAZolam 0.5 MG TABLET PO PRN (21:11)
[2016-11-27 22:56] VITALS: BP 125/76
[2016-11-28] VITALS (16 sets, daily range): BP systolic 96–145; BP diastolic 64–79
[2016-11-28] MEDS: ALPRAZolam 0.5 MG TABLET PO PRN ×2 (03:53→21:33)
[2016-11-28] MEDS: ANTI-COAG MONITOR BY PHARMACY. MC PRN (07:46)
[2016-11-28] MEDS: INSULIN ASPART 300 UNITS/3 ML INSULN.PEN SQ SCH ×3 (08:00→17:00)
[2016-11-28] MEDS: ASPIRIN CHEWABLE 81 MG TABLET. PO SCH (08:57)
[2016-11-28] MEDS: METOPROLOL SUCC 24HR ER 25 MG TAB.ER.24H. PO SCH (08:58)
[2016-11-28] MEDS: NICOTINE 21MG PATCH. TD SCH (08:58)
--- NOTE | 2016-11-28 11:08 | PDOC ---
PROGRESS NOTES Chief Complaint Chief Complaint Atrial fibrillation w/ RVR ASSESSMENT AND PLAN: 1. Afib w/ RVR: rate borderline (~100); 2. CHF: systolic by echo yesterday (EF <20%). IV lasix. s/p cardiac cath, BM stent- RCA 3. HTN: well controlled on BB, DESTINI-I 4. OAC: started on Xarelto last week for afib by PCP. currently on Lovenox 5. DM: ISS. HgbA1c better, 6.8 6. HLD: well controlled on statin 7. Hyponatremia: resolved. 8. CKD3: stable. History of Present Illness History of Present Illness seen after cath no chest pain no fever Vitals Vitals Vital Signs Date Time Temp Pulse Resp B/P (MAP) Pulse Ox O2 Delivery O2 Flow Rate FiO2 11/28/16 08:58 118 108/77 11/28/16 08:10 Nasal Cannula 3.0 11/28/16 07:00 98.6 20 91 98.6 Physical Exam General: Alert, Oriented X3, Cooperative Heart: Normal S1, Normal S2, Other (2/6 systolic murmur, IRR- tele AFIB with intermittent rate elevation) Abdomen: Soft, No tenderness Extremities: Normal pulses, Other (1-2+ edema LE) Skin: No breakdown, No significant lesion Labs LABS Laboratory Tests Test 11/27/16 17:14 11/28/16 07:45 Glucose (Fingerstick) 136 mg/dL (70-99) 169 mg/dL (70-99) Assessment and Plan Assessmemt and Plan Problems Medical Problems: (1) Acute congestive heart failure Status: Acute (2) Atrial fibrillation Status: Acute (3) Mild protein malnutrition Status: Acute (4) Pulmonary edema Status: Acute Problems: Comment Review of Relevant I have reviewed the following items wander (where applicable) has been applied. Labs Laboratory Tests Test 11/26/16 20:43 11/27/16 05:40 11/27/16 17:14 11/28/16 07:45 Glucose (Fingerstick) 113 mg/dL (70-99) 136 mg/dL (70-99) 169 mg/dL (70-99) White Blood Count 8.2 x10^3/uL (4.0-11.0) Red Blood Count 4.19 x10^6/uL (4.30-5.70) Hemoglobin 12.2 g/dL (13.0-17.5) Hematocrit 37.4 % (39.0-53.0) Mean Corpuscular Volume 89 fL (79-100) Mean Corpuscular Hemoglobin 29 pg (25-35) Mean Corpuscular Hemoglobin Concent 33 g/dL (31-37) Red Cell Distribution Width 14.6 % (11.5-14.5) Platelet Count 167 x10^3/uL (140-400) Neutrophils (%) (Auto) 70 % (31-73) Lymphocytes (%) (Auto) 16 % (24-48) Monocytes (%) (Auto) 10 % (0-9) Eosinophils (%) (Auto) 3 % (0-3) Basophils (%) (Auto) 1 % (0-3) Neutrophils # (Auto) 5.7 x10^3uL (1.8-7.7) Lymphocytes # (Auto) 1.3 x10^3/uL (1.0-4.8) Monocytes # (Auto) 0.8 x10^3/uL (0.0-1.1) Eosinophils # (Auto) 0.3 x10^3/uL (0.0-0.7) Basophils # (Auto) 0.0 x10^3/uL (0.0-0.2) Sodium Level 137 mmol/L (136-145) Potassium Level 3.6 mmol/L (3.5-5.1) Chloride Level 101 mmol/L (98-107) Carbon Dioxide Level 28 mmol/L (21-32) Anion Gap 8 (6-14) Blood Urea Nitrogen 14 mg/dL (8-26) Creatinine 1.2 mg/dL (0.7-1.3) Estimated GFR (Cockcroft-Gault) 58.9 Glucose Level 114 mg/dL (70-99) Calcium Level 8.3 mg/dL (8.5-10.1) Magnesium Level 2.0 mg/dL (1.8-2.4) Laboratory Tests Test 11/27/16 17:14 11/28/16 07:45 Glucose (Fingerstick) 136 mg/dL (70-99) 169 mg/dL (70-99) Medications Current Medications Sodium Chloride 1,000 ml @ 60 mls/hr [id number] IV Last administered on 19:42; Start 11/25/16 at 19:15; Stop 11/26/16 at 11:54; Status DC Furosemide (Lasix) 40 mg 1X ONCE IVP Last administered on 11/25/16 19:42; Start 11/25/16 at 19:30; Stop 11/25/16 at 19:31; Status DC Ondansetron HCl (Zofran) 4 mg PRN Q8HRS PRN IV NAUSEA/VOMITING; Start 11/25/16 at 20:45; Stop 11/26/16 at 20:44; Status DC Sodium Chloride 1,000 ml @ 60 mls/hr [id number] IV ; Start 11/25/16 at 20:42; Stop 11/26/16 at 20:41; Status DC Acetaminophen (Tylenol) 650 mg PRN Q4HRS PRN PO FEVER; Start 11/25/16 at 20:45 ; Stop 11/26/16 at 20:44; Status DC Alprazolam (Xanax) 0.5 mg PRN Q6HRS PRN PO ANXIETY / AGITATION Last administered on 11/28/16 03:53; Start 11/26/16 at 00:00 Lisinopril (Prinivil) 20 mg QEVNG PO Last administered on 11/27/16 18:24; Start 11/26/16 at 18:00 Simvastatin (Zocor) 20 mg HS PO ; Start 11/26/16 at 21:00; Stop 11/26/16 at 21: 00; Status DC Tamsulosin HCl (Flomax) 0.4 mg QEVNG PO Last administered on 11/27/16 18:23; Start 11/26/16 at 18:00 Aspirin (Children'S Aspirin) 81 mg DAILYWBKFT PO Last administered on 08:57; Start 11/26/16 at 08:00 Potassium Chloride (Klor-Con) 40 meq 1X ONCE PO Last administered on 11:08; Start 11/26/16 at 10:30; Stop 11/26/16 at 10:31; Status DC Furosemide (Lasix) 40 mg DAILY IVP Last administered on 11/27/16 08:33; Start 11/26/16 at 13:00 Potassium Chloride (Klor-Con) 20 meq DAILYWBKFT PO Last administered on 08:33; Start 11/26/16 at 13:00 Metoprolol Succinate (Toprol Xl) 75 mg DAILY PO Last administered on 11/27/16 08:32; Start 11/26/16 at 13:00; Stop 11/27/16 at 09:36; Status DC Magnesium Sulfate/ Dextrose 50 ml @ 25 mls/hr 1X ONCE IV Last administered on 11/26/16 12:25; Start 11/26/16 at 12:00; Stop 11/26/16 at 13:59; Status DC Insulin Aspart (NovoLOG) 0-5 UNITS TIDWMEALS SQ ; Start 11/26/16 at 17:00 Dextrose (Dextrose 50%-Water Syringe) 12.5 gm PRN Q15MIN PRN IV SEE COMMENTS; Start 11/26/16 at 14:15 Rivaroxaban (Xarelto) 15 mg BIDWMEALS PO Last administered on 11/26/16 17:18; Start 11/26/16 at 17:00; Stop 11/27/16 at 08:23; Status DC Info (Anti-Coagulation Monitoring By Pharmacy) 1 each PRN DAILY PRN MC SEE COMMENTS Last administered on 11/28/16 07:46; Start 11/26/16 at 14:15 Enoxaparin Sodium (Lovenox Per Pharmacy Treatment Dosing) 1 each PRN DAILY PRN MC SEE COMMENTS; Start 11/26/16 at 15:30 Enoxaparin Sodium (Lovenox 100mg Syringe) 100 mg Q12HR SQ Last administered on 11/27/16 08:32; Start 11/26/16 at 21:00 Nicotine (Nicoderm Cq 21mg) 1 patch DAILY TD Last administered on 11/28/16 08: 58; Start 11/26/16 at 19:00 Nicotine (Nicoderm Cq 21mg) 1 patch 1X ONCE TD ; Start 11/26/16 at 18:45; Stop 11/26/16 at 18:46; Status UNV Atorvastatin Calcium (Lipitor) 20 mg HS PO Last administered on 11/27/16 21:10 ; Start 11/26/16 at 21:00 Metoprolol Succinate (Toprol Xl) 100 mg DAILY PO Last administered on 08:58; Start 11/28/16 at 09:00 Furosemide (Lasix) 40 mg 1X ONCE IVP Last administered on 11/27/16 14:42; Start 11/27/16 at 14:00; Stop 11/27/16 at 14:01; Status DC Potassium Chloride (Klor-Con) 40 meq 1X ONCE PO Last administered on 12:52; Start 11/27/16 at 11:15; Stop 11/27/16 at 11:16; Status DC Metoprolol Tartrate (Lopressor) 25 mg 1X ONCE PO Last administered on 12:50; Start 11/27/16 at 11:15; Stop 11/27/16 at 11:16; Status DC Active Scripts Active Cefepime Hcl 1 Gm Vial 1 Gm IJ Q12HR 5 Days Alprazolam 0.25 Mg Tablet 0.5 Mg PO PRN Q6HRS PRN Reported Diltiazem 24HR Cd (Diltiazem Hcl) 180 Mg Cap.er.24h 1 Cap PO DAILY Aspir 81 (Aspirin) 81 Mg Tablet.dr 1 Tab PO DAILY Atorvastatin Calcium 20 Mg Tablet 20 Mg PO HS Amlodipine Besylate 5 Mg Tablet 5 Mg PO DAILY Ventolin Hfa Inhaler (Albuterol Sulfate) 18 Gm Hfa.aer.ad 2 Puff INH QID PRN Xarelto (Rivaroxaban) 20 Mg Tablet 20 Mg PO DAILY Metoprolol Tartrate 25 Mg Tablet 25 Mg PO BID Tamsulosin Hcl 0.4 Mg Cap.er.24h 1 Cap PO QEVNG Simvastatin 20 Mg Tablet 20 Mg PO HS Lisinopril 20 Mg Tablet 20 Mg PO QEVNG Vitals/I & O Vital Sign - Last 24 Hours 11/27/16 11/27/16 11/27/16 11/27/16 12:50 15:00 18:24 19:33 Temp 98.3 97.6 98.3 97.6 Pulse 100 106 106 103 Resp 20 21 B/P (MAP) 101/62 94/59 (71) 112/69 124/79 (94) Pulse Ox 93 94 O2 Delivery Nasal Cannula Nasal Cannula O2 Flow Rate 3.0 3.0 11/27/16 11/27/16 11/27/16 11/28/16 19:55 22:56 22:56 03:30 Temp 97.6 97.1 97.6 97.1 Pulse 124 112 Resp 24 24 B/P (MAP) 125/76 (92) 119/74 (89) Pulse Ox 88 95 94 O2 Delivery Nasal Cannula Room Air Nasal Cannula Nasal Cannula O2 Flow Rate 3.0 3.0 3.0 11/28/16 11/28/16 11/28/16 07:00 08:10 08:58 Temp 98.6 98.6 Pulse 118 118 Resp 20 B/P (MAP) 108/77 (87) 108/77 Pulse Ox 91 O2 Delivery Nasal Cannula Nasal Cannula O2 Flow Rate 3.0 3.0 Intake and Output 11/27/16 11/27/16 11/28/16 15:00 23:00 07:00 Intake Total 650 ml 100 ml Balance 650 ml 100 ml ALLEN SALCEDO MD November 28, 2016 11:08
[2016-11-28] MEDS ORDERED: LIDOCAINE 2% 20 ML VIAL. ONE (11:27)
--- NOTE | 2016-11-28 11:44 | PDOC ---
MODERATE SEDATION ASSESSMENT RISKS/ALTERNATIVES Risks/Alternatives Risks and alternatives of this type of sedation and procedure discussed with: RISK/ALTERNATIVES: Patient H & P ON CHART H & P H & P on chart and reviewed for co-morbid conditions and appropriate labs. H&P ON CHART: Yes STATUS PREG STATUS ASSESSED: N/A MEDS/ALLERGIES REVIEWED Meds/Allergies Reviewed Medications and Allergies including time and route of recently administered narcotics and sedatives. MEDS/ALLERGIES REVIEWED: Yes ASA RATING ASA RATING: I AIRWAY ASSESSMENT Airway Assessment Airway patency, oral function limitations, presence of caps, crowns, dentures, partials, and ability to extend neck assessed. AIRWAY ASSESSMENT: Yes MALLAMPATI SCORE MALLAMPATI SCORE: II PRE-SEDATION ASSESSMENT PRE-SEDATION ASSESSMENT: Yes KHURRAM COMBS MD November 28, 2016 11:44
[2016-11-28] MEDS ORDERED: IOHEXOL 300 MG/ML 100ML VIAL. IART ONE (12:00)
[2016-11-28] MEDS ORDERED: fentaNYL PF VIAL 100 MCG/2 ML VIAL IV ONE (12:00)
[2016-11-28] MEDS ORDERED: MIDAZOLAM HCL/PF 2 MG/2 ML VIAL. IV ONE (12:00)
[2016-11-28] MEDS ORDERED: LIDOCAINE 2% 20 ML VIAL. IJ ONE (12:00)
[2016-11-28] MEDS ORDERED: IOHEXOL 300 MG/ML 100ML VIAL. ONE ×2 (12:14→12:32)
[2016-11-28] MEDS ORDERED: BIVALIRUDIN 250 MG VIAL. IV ONE ×2 (12:21→13:00)
[2016-11-28] MEDS ORDERED: TICAGRELOR 90 MG TABLET. ONE (13:00)
[2016-11-28] MEDS ORDERED: TICAGRELOR 90 MG TABLET. PO ONE (13:00)
[2016-11-28] MEDS ORDERED: NITROGLYCERIN SUBLINGUAL 0.4 MG BOTTLE OF 25. SL PRN (13:15)
[2016-11-28] MEDS ORDERED: 0.9 % SODIUM CHLORIDE 10 ML DISP.SYRIN. IV PRN (13:15)
[2016-11-28] MEDS ORDERED: ACETAMINOPHEN 325 MG TABLET. PO PRN (13:15)
[2016-11-28] MEDS ORDERED: AMIODARONE 150 MG in IV DEXTROSE 5% 100 ML IV PRN (13:15)
[2016-11-28] MEDS ORDERED: fentaNYL PF VIAL 100 MCG/2 ML VIAL IV PRN (13:15)
[2016-11-28] MEDS ORDERED: LIDOCAINE 2% 100 MG/5 ML SYRINGE. IV PRN (13:15)
[2016-11-28] MEDS ORDERED: ATROPINE 0.5 MG/5 ML DISP.SYRIN. IV PRN (13:15)
--- NOTE | 2016-11-28 13:18 | PDOC4 ---
Operative Note Operative Note Brief cath note 3.5 x 15 bare metal stent to 85% RCA lesion. Residual lesion 0%. Post PCI protocol. Discussed with the patient and family. Full report to follow. KHURRAM COMBS MD November 28, 2016 13:18
[2016-11-28] MEDS ORDERED: fentaNYL PF VIAL 100 MCG/2 ML VIAL IM ONE (14:11)
--- NOTE | 2016-11-28 14:12 | EKG ---
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
[2016-11-28] MEDS: POTASSIUM CHLORIDE 20 MEQ TABLET.ER. PO SCH (14:38)
[2016-11-28] MEDS: FUROSEMIDE 40 MG/4 ML VIAL. IVP SCH (14:38)
[2016-11-28] MEDS: IV NORMAL SALINE 1000ML BAG 1,000 ML IV SCH (14:40)
[2016-11-28] MEDS: TAMSULOSIN 0.4 MG CAP.ER.24H. PO SCH (18:16)
[2016-11-28] MEDS: LISINOPRIL 20 MG TABLET PO SCH (18:16)
[2016-11-28] MEDS: ATORVASTATIN CALCIUM 20 MG TABLET PO SCH (21:30)
[2016-11-29 03:18] VITALS: BP 110/61
[2016-11-29 04:29] LABS: BASO % 0 % (0-3); EOS % 0 % (0-3); HEMATOCRIT 42.9 % (39.0-53.0); LYMPH # 1.2 x10^3/uL (1.0-4.8); LYMPH % 9 % (24-48); MEAN CORPUSCULAR HEMOGLOBIN 29 pg (25-35); MEAN CORPUSCULAR HGB CONC 33 g/dL (31-37); MEAN CORPUSCULAR VOLUME 89 fL (79-100); MONO % 9 % (0-9); NEUT % 81 % (31-73); PLATELET COUNT 228 x10^3/uL (140-400); RED BLOOD COUNT 4.81 x10^6/uL (4.30-5.70); RED CELL DISTRIBUTION WIDTH 14.5 % (11.5-14.5); WHITE BLOOD COUNT 13.2 x10^3/uL (4.0-11.0)
[2016-11-29 04:47] LABS: CALCIUM 8.6 mg/dL (8.5-10.1); CREATININE 1.1 mg/dL (0.7-1.3); GFR 65.1; MAGNESIUM 1.8 mg/dL (1.8-2.4)
[2016-11-29 07:00] VITALS: BP 107/65
[2016-11-29] MEDS: INSULIN ASPART 300 UNITS/3 ML INSULN.PEN SQ SCH ×3 (08:00→17:00)
[2016-11-29] MEDS: METOPROLOL SUCC 24HR ER 25 MG TAB.ER.24H. PO SCH (09:00)
[2016-11-29] MEDS: IV NORMAL SALINE 1000ML BAG 1,000 ML IV SCH (09:13)
[2016-11-29] MEDS: NICOTINE 21MG PATCH. TD SCH (09:30)
[2016-11-29] MEDS: ASPIRIN ENTERIC COATED 81 MG TABLET.DR. PO SCH (09:31)
[2016-11-29] MEDS: TICAGRELOR 90 MG TABLET. PO SCH ×2 (09:31→20:16)
[2016-11-29] MEDS: POTASSIUM CHLORIDE 20 MEQ TABLET.ER. PO SCH (09:31)
[2016-11-29] MEDS: FUROSEMIDE 40 MG/4 ML VIAL. IVP SCH (09:33)
[2016-11-29 11:00] VITALS: BP 116/74
--- NOTE | 2016-11-29 11:54 | PDOC ---
CARDIO Progress Notes Date and Time Date of Service 11/29/16 Time of Evaluation 1115 Subjective Subjective: No Chest Pain, No Palpitations, Other (mild SOA) Vitals Vitals Vital Signs Date Time Temp Pulse Resp B/P (MAP) Pulse Ox O2 Delivery O2 Flow Rate FiO2 11/29/16 09:00 99 107/65 11/29/16 07:45 Nasal Cannula 3.0 11/29/16 07:00 97.5 20 92 97.5 Weight Weight [ ] Input and Output Intake and Output Intake and Output 11/29/16 07:00 Intake Total 1000 ml Output Total 1270 ml Balance -270 ml Intake Oral 1000 ml Output Urine Total 1270 ml # Voids 1 # Bowel Movements 8 Laboratory Labs Laboratory Tests Test 11/28/16 16:09 11/29/16 03:00 Glucose (Fingerstick) 133 mg/dL (70-99) White Blood Count 13.2 x10^3/uL (4.0-11.0) Red Blood Count 4.81 x10^6/uL (4.30-5.70) Hemoglobin 14.0 g/dL (13.0-17.5) Hematocrit 42.9 % (39.0-53.0) Mean Corpuscular Volume 89 fL (79-100) Mean Corpuscular Hemoglobin 29 pg (25-35) Mean Corpuscular Hemoglobin Concent 33 g/dL (31-37) Red Cell Distribution Width 14.5 % (11.5-14.5) Platelet Count 228 x10^3/uL (140-400) Neutrophils (%) (Auto) 81 % (31-73) Lymphocytes (%) (Auto) 9 % (24-48) Monocytes (%) (Auto) 9 % (0-9) Eosinophils (%) (Auto) 0 % (0-3) Basophils (%) (Auto) 0 % (0-3) Neutrophils # (Auto) 10.7 x10^3uL (1.8-7.7) Lymphocytes # (Auto) 1.2 x10^3/uL (1.0-4.8) Monocytes # (Auto) 1.2 x10^3/uL (0.0-1.1) Eosinophils # (Auto) 0.0 x10^3/uL (0.0-0.7) Basophils # (Auto) 0.0 x10^3/uL (0.0-0.2) Sodium Level 138 mmol/L (136-145) Potassium Level 3.0 mmol/L (3.5-5.1) Chloride Level 99 mmol/L (98-107) Carbon Dioxide Level 28 mmol/L (21-32) Anion Gap 11 (6-14) Blood Urea Nitrogen 14 mg/dL (8-26) Creatinine 1.1 mg/dL (0.7-1.3) Estimated GFR (Cockcroft-Gault) 65.1 Glucose Level 132 mg/dL (70-99) Calcium Level 8.6 mg/dL (8.5-10.1) Magnesium Level 1.8 mg/dL (1.8-2.4) Physical Exam HEENT: Neck Supple W Full Motion Chest: Symmetric LUNGS: Clear to Auscultation Heart: murmurs (2/6 systolic murmur ), irregularly irregular (tele AFIB with uncontrolled ventricular rate ) Abdomen: Soft N/T Extremities: Other (2+ RLE and 1+ LLE edema ) Neurology: alert, oriented, follow commands Assessment Assessment 1. Acute on chronic systolic heart failure with ICM Echo 11/25/16 with depressed LV function; EF 20% better compensated. Continue diuresis with monitoring of renal function. consider LifeVest at discharge will repeat echo in 3-4 months to evaluation need for ICD in prevention of SCD 2. CAD s/p PCI/BMS to RCA DAPT with ASA and Brilinta continue secondary prevention/ risk stratification modification 3. Dyspnea secondary to a/c HF improved with diuresis 4. Atrial Fibrillation rate remains elevated and is slightly hypotensive. Will decrease BB and add digoxin for better rate control Resume Xarelto for stroke prevention. D/c Lovenox plan for outpatient EBONIE with CV after 3 week of OAC unless patient becomes unstable. 5. Hypertension low normotensive overnight. Decrease BB 6. Hyperlipidemia LDL=36 statin therapy 7. Hypokalemia replace. monitor lytes 8. Diabetes management per PCP MAMI SERRATO APRN November 29, 2016 11:54
[2016-11-29] MEDS: DIGOXIN 125 MCG TABLET. PO SCH (12:18)
[2016-11-29] MEDS: METOPROLOL SUCC 24HR ER 50 MG TAB.ER.24H. PO SCH (12:18)
[2016-11-29] MEDS ORDERED: POTASSIUM CHLORIDE 20 MEQ TABLET.ER. PO ONE (12:30)
[2016-11-29 15:00] VITALS: BP 112/68
--- NOTE | 2016-11-29 16:20 | PDOC ---
PROGRESS NOTES Chief Complaint Chief Complaint Atrial fibrillation w/ RVR ASSESSMENT AND PLAN: 1. Afib w/ RVR: rate not controlled, on OAC, Digoxin, possible cardioversion if unstable. 2. CHF: systolic (EF <20%). IV Lasix. s/p cardiac cath, BM stent- RCA on 11/28, continue diuresis, per cardiology, potassium replaced. Monitor renal functions 3. HTN: well controlled on BB, DESTINI-I 4. OAC: started on Xarelto 5. DM: ISS. HgbA1c better, 6.8 6. HLD: well controlled on statin 7. Hyponatremia: resolved. 8. CKD3: stable. History of Present Illness History of Present Illness tachy d/w at bedside no chest pain wants to go home Vitals Vitals Vital Signs Date Time Temp Pulse Resp B/P (MAP) Pulse Ox O2 Delivery O2 Flow Rate FiO2 11/29/16 15:00 97.3 112 24 112/68 (83) 97 Nasal Cannula 2.0 97.3 Physical Exam General: Alert, Oriented X3, Cooperative Heart: Other (2/6 systolic murmur, IRR- tele AFIB with intermittent rate elevation) Abdomen: Soft, No tenderness Extremities: Normal pulses, Other (1-2+ edema LE) Skin: No breakdown, No significant lesion Labs LABS Laboratory Tests Test 11/29/16 03:00 11/29/16 11:32 White Blood Count 13.2 x10^3/uL (4.0-11.0) Red Blood Count 4.81 x10^6/uL (4.30-5.70) Hemoglobin 14.0 g/dL (13.0-17.5) Hematocrit 42.9 % (39.0-53.0) Mean Corpuscular Volume 89 fL (79-100) Mean Corpuscular Hemoglobin 29 pg (25-35) Mean Corpuscular Hemoglobin Concent 33 g/dL (31-37) Red Cell Distribution Width 14.5 % (11.5-14.5) Platelet Count 228 x10^3/uL (140-400) Neutrophils (%) (Auto) 81 % (31-73) Lymphocytes (%) (Auto) 9 % (24-48) Monocytes (%) (Auto) 9 % (0-9) Eosinophils (%) (Auto) 0 % (0-3) Basophils (%) (Auto) 0 % (0-3) Neutrophils # (Auto) 10.7 x10^3uL (1.8-7.7) Lymphocytes # (Auto) 1.2 x10^3/uL (1.0-4.8) Monocytes # (Auto) 1.2 x10^3/uL (0.0-1.1) Eosinophils # (Auto) 0.0 x10^3/uL (0.0-0.7) Basophils # (Auto) 0.0 x10^3/uL (0.0-0.2) Sodium Level 138 mmol/L (136-145) Potassium Level 3.0 mmol/L (3.5-5.1) Chloride Level 99 mmol/L (98-107) Carbon Dioxide Level 28 mmol/L (21-32) Anion Gap 11 (6-14) Blood Urea Nitrogen 14 mg/dL (8-26) Creatinine 1.1 mg/dL (0.7-1.3) Estimated GFR (Cockcroft-Gault) 65.1 Glucose Level 132 mg/dL (70-99) Calcium Level 8.6 mg/dL (8.5-10.1) Magnesium Level 1.8 mg/dL (1.8-2.4) Glucose (Fingerstick) 166 mg/dL (70-99) Assessment and Plan Assessmemt and Plan Problems Medical Problems: (1) Acute congestive heart failure Status: Acute (2) Atrial fibrillation Status: Acute (3) Mild protein malnutrition Status: Acute (4) Pulmonary edema Status: Acute Problems: Comment Review of Relevant I have reviewed the following items wander (where applicable) has been applied. Labs Laboratory Tests Test 11/27/16 17:14 11/28/16 07:45 11/28/16 11:01 11/28/16 16:09 Glucose (Fingerstick) 136 mg/dL (70-99) 169 mg/dL (70-99) 128 mg/dL (70-99) 133 mg/dL (70-99) Test 11/29/16 03:00 11/29/16 11:32 White Blood Count 13.2 x10^3/uL (4.0-11.0) Red Blood Count 4.81 x10^6/uL (4.30-5.70) Hemoglobin 14.0 g/dL (13.0-17.5) Hematocrit 42.9 % (39.0-53.0) Mean Corpuscular Volume 89 fL (79-100) Mean Corpuscular Hemoglobin 29 pg (25-35) Mean Corpuscular Hemoglobin Concent 33 g/dL (31-37) Red Cell Distribution Width 14.5 % (11.5-14.5) Platelet Count 228 x10^3/uL (140-400) Neutrophils (%) (Auto) 81 % (31-73) Lymphocytes (%) (Auto) 9 % (24-48) Monocytes (%) (Auto) 9 % (0-9) Eosinophils (%) (Auto) 0 % (0-3) Basophils (%) (Auto) 0 % (0-3) Neutrophils # (Auto) 10.7 x10^3uL (1.8-7.7) Lymphocytes # (Auto) 1.2 x10^3/uL (1.0-4.8) Monocytes # (Auto) 1.2 x10^3/uL (0.0-1.1) Eosinophils # (Auto) 0.0 x10^3/uL (0.0-0.7) Basophils # (Auto) 0.0 x10^3/uL (0.0-0.2) Sodium Level 138 mmol/L (136-145) Potassium Level 3.0 mmol/L (3.5-5.1) Chloride Level 99 mmol/L (98-107) Carbon Dioxide Level 28 mmol/L (21-32) Anion Gap 11 (6-14) Blood Urea Nitrogen 14 mg/dL (8-26) Creatinine 1.1 mg/dL (0.7-1.3) Estimated GFR (Cockcroft-Gault) 65.1 Glucose Level 132 mg/dL (70-99) Calcium Level 8.6 mg/dL (8.5-10.1) Magnesium Level 1.8 mg/dL (1.8-2.4) Glucose (Fingerstick) 166 mg/dL (70-99) Laboratory Tests Test 11/29/16 03:00 11/29/16 11:32 White Blood Count 13.2 x10^3/uL (4.0-11.0) Red Blood Count 4.81 x10^6/uL (4.30-5.70) Hemoglobin 14.0 g/dL (13.0-17.5) Hematocrit 42.9 % (39.0-53.0) Mean Corpuscular Volume 89 fL (79-100) Mean Corpuscular Hemoglobin 29 pg (25-35) Mean Corpuscular Hemoglobin Concent 33 g/dL (31-37) Red Cell Distribution Width 14.5 % (11.5-14.5) Platelet Count 228 x10^3/uL (140-400) Neutrophils (%) (Auto) 81 % (31-73) Lymphocytes (%) (Auto) 9 % (24-48) Monocytes (%) (Auto) 9 % (0-9) Eosinophils (%) (Auto) 0 % (0-3) Basophils (%) (Auto) 0 % (0-3) Neutrophils # (Auto) 10.7 x10^3uL (1.8-7.7) Lymphocytes # (Auto) 1.2 x10^3/uL (1.0-4.8) Monocytes # (Auto) 1.2 x10^3/uL (0.0-1.1) Eosinophils # (Auto) 0.0 x10^3/uL (0.0-0.7) Basophils # (Auto) 0.0 x10^3/uL (0.0-0.2) Sodium Level 138 mmol/L (136-145) Potassium Level 3.0 mmol/L (3.5-5.1) Chloride Level 99 mmol/L (98-107) Carbon Dioxide Level 28 mmol/L (21-32) Anion Gap 11 (6-14) Blood Urea Nitrogen 14 mg/dL (8-26) Creatinine 1.1 mg/dL (0.7-1.3) Estimated GFR (Cockcroft-Gault) 65.1 Glucose Level 132 mg/dL (70-99) Calcium Level 8.6 mg/dL (8.5-10.1) Magnesium Level 1.8 mg/dL (1.8-2.4) Glucose (Fingerstick) 166 mg/dL (70-99) Medications Current Medications Sodium Chloride 1,000 ml @ 60 mls/hr [id number] IV Last administered on t 19:42; Start 11/25/16 at 19:15; Stop 11/26/16 at 11:54; Status DC Furosemide (Lasix) 40 mg 1X ONCE IVP Last administered on 11/25/16 19:42; Start 11/25/16 at 19:30; Stop 11/25/16 at 19:31; Status DC Ondansetron HCl (Zofran) 4 mg PRN Q8HRS PRN IV NAUSEA/VOMITING; Start 11/25/16 at 20:45; Stop 11/26/16 at 20:44; Status DC Sodium Chloride 1,000 ml @ 60 mls/hr [id number] IV ; Start 11/25/16 at 20:42; Stop 11/26/16 at 20:41; Status DC Acetaminophen (Tylenol) 650 mg PRN Q4HRS PRN PO FEVER; Start 11/25/16 at 20:45 ; Stop 11/26/16 at 20:44; Status DC Alprazolam (Xanax) 0.5 mg PRN Q6HRS PRN PO ANXIETY / AGITATION Last administered on 11/28/16 21:33; Start 11/26/16 at 00:00 Lisinopril (Prinivil) 20 mg QEVNG PO Last administered on 11/28/16 18:16; Start 11/26/16 at 18:00 Simvastatin (Zocor) 20 mg HS PO ; Start 11/26/16 at 21:00; Stop 11/26/16 at 21: 00; Status DC Tamsulosin HCl (Flomax) 0.4 mg QEVNG PO Last administered on 11/28/16 18:16; Start 11/26/16 at 18:00 Aspirin (Children'S Aspirin) 81 mg DAILYWBKFT PO Last administered on 08:57; Start 11/26/16 at 08:00; Stop 11/28/16 at 13:19; Status DC Potassium Chloride (Klor-Con) 40 meq 1X ONCE PO Last administered on 11:08; Start 11/26/16 at 10:30; Stop 11/26/16 at 10:31; Status DC Furosemide (Lasix) 40 mg DAILY IVP Last administered on 11/29/16 09:33; Start 11/26/16 at 13:00 Potassium Chloride (Klor-Con) 20 meq DAILYWBKFT PO Last administered on 09:31; Start 11/26/16 at 13:00 Metoprolol Succinate (Toprol Xl) 75 mg DAILY PO Last administered on 11/27/16 08:32; Start 11/26/16 at 13:00; Stop 11/27/16 at 09:36; Status DC Magnesium Sulfate/ Dextrose 50 ml @ 25 mls/hr 1X ONCE IV Last administered on 11/26/16 12:25; Start 11/26/16 at 12:00; Stop 11/26/16 at 13:59; Status DC Insulin Aspart (NovoLOG) 0-5 UNITS TIDWMEALS SQ ; Start 11/26/16 at 17:00 Dextrose (Dextrose 50%-Water Syringe) 12.5 gm PRN Q15MIN PRN IV SEE COMMENTS; Start 11/26/16 at 14:15 Rivaroxaban (Xarelto) 15 mg BIDWMEALS PO Last administered on 11/26/16 17:18; Start 11/26/16 at 17:00; Stop 11/27/16 at 08:23; Status DC Info (Anti-Coagulation Monitoring By Pharmacy) 1 each PRN DAILY PRN MC SEE COMMENTS Last administered on 11/28/16 07:46; Start 11/26/16 at 14:15 Enoxaparin Sodium (Lovenox Per Pharmacy Treatment Dosing) 1 each PRN DAILY PRN MC SEE COMMENTS; Start 11/26/16 at 15:30; Stop 11/29/16 at 11:58; Status DC Enoxaparin Sodium (Lovenox 100mg Syringe) 100 mg Q12HR SQ Last administered on 11/29/16 09:31; Start 11/26/16 at 21:00; Stop 11/29/16 at 11:58; Status DC Nicotine (Nicoderm Cq 21mg) 1 patch DAILY TD Last administered on 11/29/16 09: 30; Start 11/26/16 at 19:00 Nicotine (Nicoderm Cq 21mg) 1 patch 1X ONCE TD ; Start 11/26/16 at 18:45; Stop 11/26/16 at 18:46; Status UNV Atorvastatin Calcium (Lipitor) 20 mg HS PO Last administered on 11/28/16 21:30 ; Start 11/26/16 at 21:00 Metoprolol Succinate (Toprol Xl) 100 mg DAILY PO Last administered on 08:58; Start 11/28/16 at 09:00; Stop 11/29/16 at 11:47; Status DC Furosemide (Lasix) 40 mg 1X ONCE IVP Last administered on 11/27/16 14:42; Start 11/27/16 at 14:00; Stop 11/27/16 at 14:01; Status DC Potassium Chloride (Klor-Con) 40 meq 1X ONCE PO Last administered on 12:52; Start 11/27/16 at 11:15; Stop 11/27/16 at 11:16; Status DC Metoprolol Tartrate (Lopressor) 25 mg 1X ONCE PO Last administered on 12:50; Start 11/27/16 at 11:15; Stop 11/27/16 at 11:16; Status DC Lidocaine HCl 20 ml STK-MED ONCE .ROUTE ; Start 11/28/16 at 11:27; Stop at 11:28; Status DC Heparin Sodium/ Sodium Chloride 1,000 ml @ As Directed STK-MED ONCE .ROUTE ; Start 11/28/16 at 11:27; Stop 11/28/16 at 11:28; Status DC Heparin Sodium/ Sodium Chloride 1,000 unit 1X ONCE IART Last administered on 13:10; Start 11/28/16 at 12:00; Stop 11/28/16 at 12:03; Status DC Midazolam HCl (Versed) 2 mg 1X ONCE IV ; Start 11/28/16 at 12:00; Stop at 12:03; Status DC Fentanyl Citrate (Fentanyl 2ml Vial) 100 mcg 1X ONCE IV ; Start 11/28/16 at 12: 00; Stop 11/28/16 at 12:03; Status DC Iohexol (Omnipaque 300 Mg/ml) 100 ml 1X ONCE IART Last administered on 13:11; Start 11/28/16 at 12:00; Stop 11/28/16 at 12:03; Status DC Lidocaine HCl 20 ml 1X ONCE IJ Last administered on 11/28/16 13:11; Start at 12:00; Stop 11/28/16 at 12:03; Status DC Iohexol (Omnipaque 300 Mg/ml) 100 ml STK-MED ONCE .ROUTE ; Start 11/28/16 at 12: 14; Stop 11/28/16 at 12:15; Status DC Bivalirudin (Angiomax) 250 mg STK-MED ONCE IV ; Start 11/28/16 at 12:21; Stop at 12:22; Status DC Heparin Sodium/ Sodium Chloride 500 ml @ As Directed STK-MED ONCE .ROUTE ; Start 11/28/16 at 12:29; Stop 11/28/16 at 12:30; Status DC Iohexol (Omnipaque 300 Mg/ml) 100 ml STK-MED ONCE .ROUTE ; Start 11/28/16 at 12: 32; Stop 11/28/16 at 12:33; Status DC Dopamine HCl/ Dextrose 0 ml @ As Directed STK-MED ONCE IV ; Start 11/28/16 at 12 :33; Stop 11/28/16 at 12:34; Status DC Bivalirudin (Angiomax) 250 mg 1X ONCE IV Last administered on 11/28/16 13:12 ; Start 11/28/16 at 13:00; Stop 11/28/16 at 13:01; Status DC Ticagrelor (Brilinta) 90 mg STK-MED ONCE .ROUTE ; Start 11/28/16 at 13:00; Stop 11/28/16 at 13:01; Status DC Ticagrelor (Brilinta) 180 mg 1X ONCE PO Last administered on 11/28/16 13:10; Start 11/28/16 at 13:00; Stop 11/28/16 at 13:04; Status DC Sodium Chloride (Normal Saline Flush) 3 ml QSHIFT PRN IV AFTER MEDS AND BLOOD DRAWS; Start 11/28/16 at 13:15 Sodium Chloride 1,000 ml @ 50 mls/hr Q20H IV Last administered on 11/28/16 14 :40; Start 11/28/16 at 13:13 Aspirin (Ecotrin) 81 mg DAILYWBKFT PO Last administered on 11/29/16 09:31; Start 11/29/16 at 08:00 Ticagrelor (Brilinta) 90 mg BID PO Last administered on 11/29/16 09:31; Start 11/29/16 at 09:00 Acetaminophen (Tylenol) 650 mg PRN Q6HRS PRN PO MILD PAIN / TEMP; Start at 13:15 Fentanyl Citrate (Fentanyl 2ml Vial) 50 mcg PRN Q1HR PRN IV MODERATE OR SEVERE PAIN; Start 11/28/16 at 13:15 Nitroglycerin (Nitrostat) 0.4 mg PRN Q5MIN PRN SL CHEST PAIN; Start 11/28/16 at 13:15 Amiodarone HCl 150 mg/Dextrose 103 ml @ 10 mls/min 1X PRN PRN IV FOR VENTRICULAR TACHYCARDIA; Start 11/28/16 at 13:15 Lidocaine HCl (Lidocaine HCl 2% Abboject) 100 mg 1X PRN PRN IV FOR VENTRICULAR TACHYCARDIA; Start 11/28/16 at 13:15 Atropine Sulfate 0.5 mg PRN 1X PRN IV BRADYCARDIA; Start 11/28/16 at 13:15 Fentanyl Citrate (Fentanyl 2ml Vial) 25 mcg 1X ONCE IM ; Start 11/28/16 at 14: 11; Stop 11/28/16 at 14:12; Status Cancel Digoxin (Lanoxin) 125 mcg DAILY PO Last administered on 11/29/16 12:18; Start 11/29/16 at 12:00 Metoprolol Succinate (Toprol Xl) 50 mg DAILY PO Last administered on 11/29/16 12:18; Start 11/29/16 at 12:00 Rivaroxaban (Xarelto) 20 mg DAILYWSUP PO ; Start 11/29/16 at 17:00 Potassium Chloride (Klor-Con) 40 meq 1X ONCE PO Last administered on 12:18; Start 11/29/16 at 12:30; Stop 11/29/16 at 12:31; Status DC Active Scripts Active Cefepime Hcl 1 Gm Vial 1 Gm IJ Q12HR 5 Days Alprazolam 0.25 Mg Tablet 0.5 Mg PO PRN Q6HRS PRN Reported Diltiazem 24HR Cd (Diltiazem Hcl) 180 Mg Cap.er.24h 1 Cap PO DAILY Aspir 81 (Aspirin) 81 Mg Tablet.dr 1 Tab PO DAILY Atorvastatin Calcium 20 Mg Tablet 20 Mg PO HS Amlodipine Besylate 5 Mg Tablet 5 Mg PO DAILY Ventolin Hfa Inhaler (Albuterol Sulfate) 18 Gm Hfa.aer.ad 2 Puff INH QID PRN Xarelto (Rivaroxaban) 20 Mg Tablet 20 Mg PO DAILY Metoprolol Tartrate 25 Mg Tablet 25 Mg PO BID Tamsulosin Hcl 0.4 Mg Cap.er.24h 1 Cap PO QEVNG Simvastatin 20 Mg Tablet 20 Mg PO HS Lisinopril 20 Mg Tablet 20 Mg PO QEVNG Vitals/I & O Vital Sign - Last 24 Hours 11/28/16 11/28/16 11/28/16 11/28/16 16:30 18:16 19:41 19:50 Temp 98.5 98.5 Pulse 110 124 109 Resp 20 B/P (MAP) 129/72 (91) 120/70 129/71 (90) Pulse Ox 91 95 O2 Delivery Nasal Cannula Nasal Cannula Nasal Cannula O2 Flow Rate 4.0 3.0 3.0 11/28/16 11/29/16 11/29/16 11/29/16 22:50 03:18 07:00 07:45 Temp 97.5 98.5 97.5 97.5 98.5 97.5 Pulse 111 125 99 Resp 18 20 20 B/P (MAP) 96/69 (78) 110/61 (77) 107/65 (79) Pulse Ox 94 94 92 O2 Delivery Nasal Cannula Nasal Cannula Nasal Cannula Nasal Cannula O2 Flow Rate 3.0 3.0 3.0 3.0 11/29/16 11/29/16 11/29/16 11/29/16 09:00 11:00 12:18 12:18 Temp 97.4 97.4 Pulse 99 130 130 130 Resp 22 B/P (MAP) 107/65 116/74 (88) 116/74 116/74 Pulse Ox 97 O2 Delivery Room Air 11/29/16 15:00 Temp 97.3 97.3 Pulse 112 Resp 24 B/P (MAP) 112/68 (83) Pulse Ox 97 O2 Delivery Nasal Cannula O2 Flow Rate 2.0 Intake and Output 11/28/16 11/28/16 11/29/16 15:00 23:00 07:00 Intake Total 300 ml 700 ml Output Total 1270 ml Balance -970 ml 700 ml ALLEN SALCEDO MD November 29, 2016 16:20
[2016-11-29] MEDS: TAMSULOSIN 0.4 MG CAP.ER.24H. PO SCH (18:19)
[2016-11-29] MEDS: LISINOPRIL 20 MG TABLET PO SCH (18:19)
[2016-11-29] MEDS: RIVAROXABAN 10 MG TABLET. PO SCH (18:20)
[2016-11-29 19:30] VITALS: BP 107/66
[2016-11-29] MEDS: ATORVASTATIN CALCIUM 20 MG TABLET PO SCH (20:16)
[2016-11-29 21:43] LABS: BILIRUBIN,URINE SMALL (NEG); GLUCOSE,URINE NEGATIVE (NEG); NITRITE,URINE NEGATIVE (NEG); PROTEIN,URINE NEGATIVE (NEG-TRACE)
[2016-11-29 21:52] LABS: BACTERIA,URINE FEW /HPF (0-FEW); SQUAMOUS EPITHELIAL CELL,UR OCC /LPF
[2016-11-29] MEDS: ALPRAZolam 0.5 MG TABLET PO PRN (22:20)
[2016-11-29] MEDS ORDERED: DIGOXIN IV 500 MCG/2 ML AMPUL. IV ONE (22:45)
[2016-11-29 23:43] VITALS: BP 109/66
[2016-11-30 03:03] VITALS: BP 97/54
[2016-11-30 04:16] LABS: BASO % 0 % (0-3); EOS % 2 % (0-3); HEMATOCRIT 37.2 % (39.0-53.0); LYMPH % 13 % (24-48); MEAN CORPUSCULAR HEMOGLOBIN 30 pg (25-35); MEAN CORPUSCULAR HGB CONC 35 g/dL (31-37); MEAN CORPUSCULAR VOLUME 87 fL (79-100); MONO % 12 % (0-9); NEUT % 73 % (31-73); PLATELET COUNT 178 x10^3/uL (140-400); RED BLOOD COUNT 4.29 x10^6/uL (4.30-5.70); RED CELL DISTRIBUTION WIDTH 14.5 % (11.5-14.5); WHITE BLOOD COUNT 7.9 x10^3/uL (4.0-11.0)
[2016-11-30 04:35] LABS: CALCIUM 8.1 mg/dL (8.5-10.1); CREATININE 1.1 mg/dL (0.7-1.3); GFR 65.1
[2016-11-30 04:47] LABS: POTASSIUM 2.9 mmol/L (3.5-5.1)
[2016-11-30] MEDS: IV NORMAL SALINE 1000ML BAG 1,000 ML IV SCH (05:13)
[2016-11-30] MEDS ORDERED: POTASSIUM CHLORIDE 20 MEQ TABLET.ER. PO ONE ×2 (05:45→10:30)
[2016-11-30 07:00] VITALS: BP 124/72
[2016-11-30] MEDS: ANTI-COAG MONITOR BY PHARMACY. MC PRN (07:22)
[2016-11-30] MEDS: INSULIN ASPART 300 UNITS/3 ML INSULN.PEN SQ SCH ×3 (08:00→17:00)
[2016-11-30] MEDS: DIGOXIN 125 MCG TABLET. PO SCH (08:24)
[2016-11-30] MEDS: TICAGRELOR 90 MG TABLET. PO SCH ×2 (08:25→21:09)
[2016-11-30] MEDS: ALPRAZolam 0.5 MG TABLET PO PRN ×3 (08:25→23:10)
[2016-11-30] MEDS: ASPIRIN ENTERIC COATED 81 MG TABLET.DR. PO SCH (08:25)
[2016-11-30] MEDS: METOPROLOL SUCC 24HR ER 50 MG TAB.ER.24H. PO SCH (08:26)
[2016-11-30] MEDS: NICOTINE 21MG PATCH. TD SCH (08:26)
--- NOTE | 2016-11-30 08:42 | RAD ---
Indication: Short of air. Technique: Two-view chest radiograph was obtained and compared to a study from 4 days earlier. Findings: Right basilar infiltrate persists, lungs otherwise are clear. There may be a small associated pleural effusion on the right. The heart is not enlarged and there is no definite heart failure. There is no pleural effusion. Leads overlie the patient. Impression: Persistent right basilar infiltrate, possibly with small effusion.
[2016-11-30] MEDS: FUROSEMIDE 40 MG/4 ML VIAL. IVP SCH (09:53)
--- NOTE | 2016-11-30 10:11 | PDOC ---
CARDIO Progress Notes Date and Time Date of Service 11/30/2016 Time of Evaluation 0945 Subjective Subjective: No Chest Pain, No Palpitations, Other (still has mild SOA particularly with exertion) Vitals Vitals Vital Signs Date Time Temp Pulse Resp B/P (MAP) Pulse Ox O2 Delivery O2 Flow Rate FiO2 11/30/16 08:26 120 124/72 11/30/16 08:00 Nasal Cannula 3.0 11/30/16 07:00 97.5 22 96 97.5 Weight Weight [ ] Input and Output Intake and Output Intake and Output 11/30/16 07:00 Intake Total 1290 ml Output Total 200 ml Balance 1090 ml Intake Oral 1290 ml Output Urine Total 200 ml # Voids 3 # Bowel Movements 1 Laboratory Labs Laboratory Tests Test 11/29/16 11:32 11/29/16 17:33 11/29/16 21:28 11/30/16 03:52 Glucose (Fingerstick) 166 mg/dL (70-99) 124 mg/dL (70-99) Urine Color Anh Urine Clarity Clear Urine pH 6.0 Urine Specific [place] 1.025 Urine Protein Negative mg/dL (NEG-TRACE) Urine Glucose (UA) Negative mg/dL (NEG) Urine Ketones (Stick) Negative mg/dL (NEG) Urine Blood Large (NEG) Urine Nitrite Negative (NEG) Urine Bilirubin Small (NEG) Urine Urobilinogen Dipstick 1.0 mg/dL (0.2 mg/dL) Urine Leukocyte Esterase Moderate (NEG) Urine RBC 11-20 /HPF (0-2) Urine WBC 11-20 /HPF (0-4) Urine Squamous Epithelial Cells Occ /LPF Urine Bacteria Few /HPF (0-FEW) White Blood Count 7.9 x10^3/uL (4.0-11.0) Red Blood Count 4.29 x10^6/uL (4.30-5.70) Hemoglobin 13.0 g/dL (13.0-17.5) Hematocrit 37.2 % (39.0-53.0) Mean Corpuscular Volume 87 fL (79-100) Mean Corpuscular Hemoglobin 30 pg (25-35) Mean Corpuscular Hemoglobin Concent 35 g/dL (31-37) Red Cell Distribution Width 14.5 % (11.5-14.5) Platelet Count 178 x10^3/uL (140-400) Neutrophils (%) (Auto) 73 % (31-73) Lymphocytes (%) (Auto) 13 % (24-48) Monocytes (%) (Auto) 12 % (0-9) Eosinophils (%) (Auto) 2 % (0-3) Basophils (%) (Auto) 0 % (0-3) Neutrophils # (Auto) 5.7 x10^3uL (1.8-7.7) Lymphocytes # (Auto) 1.0 x10^3/uL (1.0-4.8) Monocytes # (Auto) 1.0 x10^3/uL (0.0-1.1) Eosinophils # (Auto) 0.2 x10^3/uL (0.0-0.7) Basophils # (Auto) 0.0 x10^3/uL (0.0-0.2) Sodium Level 137 mmol/L (136-145) Potassium Level 2.9 mmol/L (3.5-5.1) Chloride Level 102 mmol/L (98-107) Carbon Dioxide Level 27 mmol/L (21-32) Anion Gap 8 (6-14) Blood Urea Nitrogen 16 mg/dL (8-26) Creatinine 1.1 mg/dL (0.7-1.3) Estimated GFR (Cockcroft-Gault) 65.1 Glucose Level 118 mg/dL (70-99) Calcium Level 8.1 mg/dL (8.5-10.1) Test 11/30/16 07:44 Glucose (Fingerstick) 124 mg/dL (70-99) Physical Exam HEENT: Neck Supple W Full Motion Chest: Symmetric LUNGS: Other (bibasilar crackles) Heart: S1S2, murmurs (2/6 systolic murmur ), irregularly irregular (AFIB and RVR with exertion) Abdomen: Soft N/T Extremities: Other (2-3+ RLE and 1+ LLE edema ) Neurology: alert, oriented, follow commands Assessment Assessment 1. Acute on chronic systolic heart failure: improving. EF 20% 2. ICM: 3. CAD: s/p PCI/BMS to RCA 4. AFIB RVR: resting HR 80-110 and with exertion 150s. Remains uncontrolled 5. HTN: was hypotensive and slightly better 6. DM2/HLP 7. Hypokalemia 8. Diarrhea: apparently spouse gave pt laxative supp without informing staff Recommendations 1. With HR remaining erratic particularly with exertion and uncontrolled with need to consider for EBONIE CV 2. Per grading will need bridging with lifevest 3. Reeval in 3 months for possible AICD. 4. Continue secondary prevention, continue DAPT. 5. Continue with xarelto. 6. Replace K, check Mg and replace if low. 7. Dig and metoprolol. If HR remains erratically high then will consider for IV amiodarone for short term control 8. Continue with diuretic therapy. CXR today. 9. discussed with staff regarding mesenteric congestion and physiology CHF. RENE PEPPER MANAGER [employer] November 30, 2016 10:11
[2016-11-30 10:58] VITALS: BP 113/58
--- NOTE | 2016-11-30 11:11 | RAD ---
Indication: Short of air, heart failure. Technique: Upright portable chest radiograph was obtained and compared to a study from one day earlier. Findings: Basilar atelectasis and or infiltrate is noted bilaterally, greater on the right. Findings are similar to prior study on the right and increased on the left. The heart is not enlarged and there is no definite heart failure. Bony structures are intact. Leads overlie the patient. Impression: Basilar atelectasis and or infiltrate bilaterally, stable on the right and increased on the left. Findings are greater on the right.
[2016-11-30] MEDS ORDERED: ALPRAZolam 0.5 MG TABLET PO ONE (12:15)
[2016-11-30] MEDS: dilTIAZem HCL 30 MG TABLET PO SCH ×2 (15:30→21:09)
[2016-11-30 15:57] VITALS: BP 128/78
--- NOTE | 2016-11-30 16:35 | PDOC ---
PROGRESS NOTES Chief Complaint Chief Complaint Atrial fibrillation w/ RVR ASSESSMENT AND PLAN: 1. Afib w/ RVR: rate not controlled, on OAC, Digoxin, Metoprolol and Cardizem , possible cardioversion if not contorted. 2. CHF: systolic (EF <20%). IV Lasix. s/p cardiac cath, BM stent- RCA on 11/28, continue diuresis, per cardiology, potassium replaced. Monitor renal functions 3. HTN: well controlled on BB, DESTINI-I 4. OAC: started on Xarelto 5. DM: ISS. HgbA1c better, 6.8 6. HLD: well controlled on statin 7. Hyponatremia: resolved. 8. CKD3: stable. History of Present Illness History of Present Illness tachy d/w at bedside no chest pain wants to go home Vitals Vitals Vital Signs Date Time Temp Pulse Resp B/P (MAP) Pulse Ox O2 Delivery O2 Flow Rate FiO2 11/30/16 15:57 97.5 123 24 128/78 (95) 95 Nasal Cannula 97.5 11/30/16 08:00 3.0 Physical Exam General: Alert, Oriented X3, Cooperative Heart: Other (2/6 systolic murmur, IRR- tele AFIB with intermittent rate elevation) Abdomen: Soft, No tenderness Extremities: Normal pulses, Other (1-2+ edema LE) Skin: No breakdown, No significant lesion Labs LABS Laboratory Tests Test 11/29/16 17:33 11/29/16 21:28 11/30/16 03:52 11/30/16 07:44 Glucose (Fingerstick) 124 mg/dL (70-99) 124 mg/dL (70-99) Urine Color Anh Urine Clarity Clear Urine pH 6.0 Urine Specific [place] 1.025 Urine Protein Negative mg/dL (NEG-TRACE) Urine Glucose (UA) Negative mg/dL (NEG) Urine Ketones (Stick) Negative mg/dL (NEG) Urine Blood Large (NEG) Urine Nitrite Negative (NEG) Urine Bilirubin Small (NEG) Urine Urobilinogen Dipstick 1.0 mg/dL (0.2 mg/dL) Urine Leukocyte Esterase Moderate (NEG) Urine RBC 11-20 /HPF (0-2) Urine WBC 11-20 /HPF (0-4) Urine Squamous Epithelial Cells Occ /LPF Urine Bacteria Few /HPF (0-FEW) White Blood Count 7.9 x10^3/uL (4.0-11.0) Red Blood Count 4.29 x10^6/uL (4.30-5.70) Hemoglobin 13.0 g/dL (13.0-17.5) Hematocrit 37.2 % (39.0-53.0) Mean Corpuscular Volume 87 fL (79-100) Mean Corpuscular Hemoglobin 30 pg (25-35) Mean Corpuscular Hemoglobin Concent 35 g/dL (31-37) Red Cell Distribution Width 14.5 % (11.5-14.5) Platelet Count 178 x10^3/uL (140-400) Neutrophils (%) (Auto) 73 % (31-73) Lymphocytes (%) (Auto) 13 % (24-48) Monocytes (%) (Auto) 12 % (0-9) Eosinophils (%) (Auto) 2 % (0-3) Basophils (%) (Auto) 0 % (0-3) Neutrophils # (Auto) 5.7 x10^3uL (1.8-7.7) Lymphocytes # (Auto) 1.0 x10^3/uL (1.0-4.8) Monocytes # (Auto) 1.0 x10^3/uL (0.0-1.1) Eosinophils # (Auto) 0.2 x10^3/uL (0.0-0.7) Basophils # (Auto) 0.0 x10^3/uL (0.0-0.2) Sodium Level 137 mmol/L (136-145) Potassium Level 2.9 mmol/L (3.5-5.1) Chloride Level 102 mmol/L (98-107) Carbon Dioxide Level 27 mmol/L (21-32) Anion Gap 8 (6-14) Blood Urea Nitrogen 16 mg/dL (8-26) Creatinine 1.1 mg/dL (0.7-1.3) Estimated GFR (Cockcroft-Gault) 65.1 Glucose Level 118 mg/dL (70-99) Calcium Level 8.1 mg/dL (8.5-10.1) Magnesium Level 1.9 mg/dL (1.8-2.4) Assessment and Plan Assessmemt and Plan Problems Medical Problems: (1) Acute congestive heart failure Status: Acute (2) Atrial fibrillation Status: Acute (3) Mild protein malnutrition Status: Acute (4) Pulmonary edema Status: Acute Problems: Comment Review of Relevant I have reviewed the following items wander (where applicable) has been applied. Labs Laboratory Tests Test 11/29/16 03:00 11/29/16 11:32 11/29/16 17:33 11/29/16 21:28 White Blood Count 13.2 x10^3/uL (4.0-11.0) Red Blood Count 4.81 x10^6/uL (4.30-5.70) Hemoglobin 14.0 g/dL (13.0-17.5) Hematocrit 42.9 % (39.0-53.0) Mean Corpuscular Volume 89 fL (79-100) Mean Corpuscular Hemoglobin 29 pg (25-35) Mean Corpuscular Hemoglobin Concent 33 g/dL (31-37) Red Cell Distribution Width 14.5 % (11.5-14.5) Platelet Count 228 x10^3/uL (140-400) Neutrophils (%) (Auto) 81 % (31-73) Lymphocytes (%) (Auto) 9 % (24-48) Monocytes (%) (Auto) 9 % (0-9) Eosinophils (%) (Auto) 0 % (0-3) Basophils (%) (Auto) 0 % (0-3) Neutrophils # (Auto) 10.7 x10^3uL (1.8-7.7) Lymphocytes # (Auto) 1.2 x10^3/uL (1.0-4.8) Monocytes # (Auto) 1.2 x10^3/uL (0.0-1.1) Eosinophils # (Auto) 0.0 x10^3/uL (0.0-0.7) Basophils # (Auto) 0.0 x10^3/uL (0.0-0.2) Sodium Level 138 mmol/L (136-145) Potassium Level 3.0 mmol/L (3.5-5.1) Chloride Level 99 mmol/L (98-107) Carbon Dioxide Level 28 mmol/L (21-32) Anion Gap 11 (6-14) Blood Urea Nitrogen 14 mg/dL (8-26) Creatinine 1.1 mg/dL (0.7-1.3) Estimated GFR (Cockcroft-Gault) 65.1 Glucose Level 132 mg/dL (70-99) Calcium Level 8.6 mg/dL (8.5-10.1) Magnesium Level 1.8 mg/dL (1.8-2.4) Glucose (Fingerstick) 166 mg/dL (70-99) 124 mg/dL (70-99) Urine Color Anh Urine Clarity Clear Urine pH 6.0 Urine Specific [place] 1.025 Urine Protein Negative mg/dL (NEG-TRACE) Urine Glucose (UA) Negative mg/dL (NEG) Urine Ketones (Stick) Negative mg/dL (NEG) Urine Blood Large (NEG) Urine Nitrite Negative (NEG) Urine Bilirubin Small (NEG) Urine Urobilinogen Dipstick 1.0 mg/dL (0.2 mg/dL) Urine Leukocyte Esterase Moderate (NEG) Urine RBC 11-20 /HPF (0-2) Urine WBC 11-20 /HPF (0-4) Urine Squamous Epithelial Cells Occ /LPF Urine Bacteria Few /HPF (0-FEW) Test 11/30/16 03:52 11/30/16 07:44 White Blood Count 7.9 x10^3/uL (4.0-11.0) Red Blood Count 4.29 x10^6/uL (4.30-5.70) Hemoglobin 13.0 g/dL (13.0-17.5) Hematocrit 37.2 % (39.0-53.0) Mean Corpuscular Volume 87 fL (79-100) Mean Corpuscular Hemoglobin 30 pg (25-35) Mean Corpuscular Hemoglobin Concent 35 g/dL (31-37) Red Cell Distribution Width 14.5 % (11.5-14.5) Platelet Count 178 x10^3/uL (140-400) Neutrophils (%) (Auto) 73 % (31-73) Lymphocytes (%) (Auto) 13 % (24-48) Monocytes (%) (Auto) 12 % (0-9) Eosinophils (%) (Auto) 2 % (0-3) Basophils (%) (Auto) 0 % (0-3) Neutrophils # (Auto) 5.7 x10^3uL (1.8-7.7) Lymphocytes # (Auto) 1.0 x10^3/uL (1.0-4.8) Monocytes # (Auto) 1.0 x10^3/uL (0.0-1.1) Eosinophils # (Auto) 0.2 x10^3/uL (0.0-0.7) Basophils # (Auto) 0.0 x10^3/uL (0.0-0.2) Sodium Level 137 mmol/L (136-145) Potassium Level 2.9 mmol/L (3.5-5.1) Chloride Level 102 mmol/L (98-107) Carbon Dioxide Level 27 mmol/L (21-32) Anion Gap 8 (6-14) Blood Urea Nitrogen 16 mg/dL (8-26) Creatinine 1.1 mg/dL (0.7-1.3) Estimated GFR (Cockcroft-Gault) 65.1 Glucose Level 118 mg/dL (70-99) Calcium Level 8.1 mg/dL (8.5-10.1) Magnesium Level 1.9 mg/dL (1.8-2.4) Glucose (Fingerstick) 124 mg/dL (70-99) Laboratory Tests Test 11/29/16 17:33 11/29/16 21:28 11/30/16 03:52 11/30/16 07:44 Glucose (Fingerstick) 124 mg/dL (70-99) 124 mg/dL (70-99) Urine Color Anh Urine Clarity Clear Urine pH 6.0 Urine Specific [place] 1.025 Urine Protein Negative mg/dL (NEG-TRACE) Urine Glucose (UA) Negative mg/dL (NEG) Urine Ketones (Stick) Negative mg/dL (NEG) Urine Blood Large (NEG) Urine Nitrite Negative (NEG) Urine Bilirubin Small (NEG) Urine Urobilinogen Dipstick 1.0 mg/dL (0.2 mg/dL) Urine Leukocyte Esterase Moderate (NEG) Urine RBC 11-20 /HPF (0-2) Urine WBC 11-20 /HPF (0-4) Urine Squamous Epithelial Cells Occ /LPF Urine Bacteria Few /HPF (0-FEW) White Blood Count 7.9 x10^3/uL (4.0-11.0) Red Blood Count 4.29 x10^6/uL (4.30-5.70) Hemoglobin 13.0 g/dL (13.0-17.5) Hematocrit 37.2 % (39.0-53.0) Mean Corpuscular Volume 87 fL (79-100) Mean Corpuscular Hemoglobin 30 pg (25-35) Mean Corpuscular Hemoglobin Concent 35 g/dL (31-37) Red Cell Distribution Width 14.5 % (11.5-14.5) Platelet Count 178 x10^3/uL (140-400) Neutrophils (%) (Auto) 73 % (31-73) Lymphocytes (%) (Auto) 13 % (24-48) Monocytes (%) (Auto) 12 % (0-9) Eosinophils (%) (Auto) 2 % (0-3) Basophils (%) (Auto) 0 % (0-3) Neutrophils # (Auto) 5.7 x10^3uL (1.8-7.7) Lymphocytes # (Auto) 1.0 x10^3/uL (1.0-4.8) Monocytes # (Auto) 1.0 x10^3/uL (0.0-1.1) Eosinophils # (Auto) 0.2 x10^3/uL (0.0-0.7) Basophils # (Auto) 0.0 x10^3/uL (0.0-0.2) Sodium Level 137 mmol/L (136-145) Potassium Level 2.9 mmol/L (3.5-5.1) Chloride Level 102 mmol/L (98-107) Carbon Dioxide Level 27 mmol/L (21-32) Anion Gap 8 (6-14) Blood Urea Nitrogen 16 mg/dL (8-26) Creatinine 1.1 mg/dL (0.7-1.3) Estimated GFR (Cockcroft-Gault) 65.1 Glucose Level 118 mg/dL (70-99) Calcium Level 8.1 mg/dL (8.5-10.1) Magnesium Level 1.9 mg/dL (1.8-2.4) Medications Current Medications Sodium Chloride 1,000 ml @ 60 mls/hr [id number] IV Last administered on 19:42; Start 11/25/16 at 19:15; Stop 11/26/16 at 11:54; Status DC Furosemide (Lasix) 40 mg 1X ONCE IVP Last administered on 11/25/16 19:42; Start 11/25/16 at 19:30; Stop 11/25/16 at 19:31; Status DC Ondansetron HCl (Zofran) 4 mg PRN Q8HRS PRN IV NAUSEA/VOMITING; Start 11/25/16 at 20:45; Stop 11/26/16 at 20:44; Status DC Sodium Chloride 1,000 ml @ 60 mls/hr [id number] IV ; Start 11/25/16 at 20:42; Stop 11/26/16 at 20:41; Status DC Acetaminophen (Tylenol) 650 mg PRN Q4HRS PRN PO FEVER; Start 11/25/16 at 20:45 ; Stop 11/26/16 at 20:44; Status DC Alprazolam (Xanax) 0.5 mg PRN Q6HRS PRN PO ANXIETY / AGITATION Last administered on 11/30/16 08:25; Start 11/26/16 at 00:00; Stop 11/30/16 at 12:57 ; Status DC Lisinopril (Prinivil) 20 mg QEVNG PO Last administered on 11/29/16 18:19; Start 11/26/16 at 18:00; Stop 11/30/16 at 13:05; Status DC Simvastatin (Zocor) 20 mg HS PO ; Start 11/26/16 at 21:00; Stop 11/26/16 at 21: 00; Status DC Tamsulosin HCl (Flomax) 0.4 mg QEVNG PO Last administered on 11/29/16 18:19; Start 11/26/16 at 18:00 Aspirin (Children'S Aspirin) 81 mg DAILYWBKFT PO Last administered on 08:57; Start 11/26/16 at 08:00; Stop 11/28/16 at 13:19; Status DC Potassium Chloride (Klor-Con) 40 meq 1X ONCE PO Last administered on 11:08; Start 11/26/16 at 10:30; Stop 11/26/16 at 10:31; Status DC Furosemide (Lasix) 40 mg DAILY IVP Last administered on 11/30/16 09:53; Start 11/26/16 at 13:00 Potassium Chloride (Klor-Con) 20 meq DAILYWBKFT PO Last administered on 09:31; Start 11/26/16 at 13:00; Stop 11/30/16 at 08:42; Status DC Metoprolol Succinate (Toprol Xl) 75 mg DAILY PO Last administered on 11/27/16 08:32; Start 11/26/16 at 13:00; Stop 11/27/16 at 09:36; Status DC Magnesium Sulfate/ Dextrose 50 ml @ 25 mls/hr 1X ONCE IV Last administered on 11/26/16 12:25; Start 11/26/16 at 12:00; Stop 11/26/16 at 13:59; Status DC Insulin Aspart (NovoLOG) 0-5 UNITS TIDWMEALS SQ ; Start 11/26/16 at 17:00 Dextrose (Dextrose 50%-Water Syringe) 12.5 gm PRN Q15MIN PRN IV SEE COMMENTS; Start 11/26/16 at 14:15 Rivaroxaban (Xarelto) 15 mg BIDWMEALS PO Last administered on 11/26/16 17:18; Start 11/26/16 at 17:00; Stop 11/27/16 at 08:23; Status DC Info (Anti-Coagulation Monitoring By Pharmacy) 1 each PRN DAILY PRN MC SEE COMMENTS Last administered on 11/30/16 07:22; Start 11/26/16 at 14:15 Enoxaparin Sodium (Lovenox Per Pharmacy Treatment Dosing) 1 each PRN DAILY PRN MC SEE COMMENTS; Start 11/26/16 at 15:30; Stop 11/29/16 at 11:58; Status DC Enoxaparin Sodium (Lovenox 100mg Syringe) 100 mg Q12HR SQ Last administered on 11/29/16 09:31; Start 11/26/16 at 21:00; Stop 11/29/16 at 11:58; Status DC Nicotine (Nicoderm Cq 21mg) 1 patch DAILY TD Last administered on 11/30/16 08: 26; Start 11/26/16 at 19:00 Nicotine (Nicoderm Cq 21mg) 1 patch 1X ONCE TD ; Start 11/26/16 at 18:45; Stop 11/26/16 at 18:46; Status UNV Atorvastatin Calcium (Lipitor) 20 mg HS PO Last administered on 11/29/16 20:16 ; Start 11/26/16 at 21:00 Metoprolol Succinate (Toprol Xl) 100 mg DAILY PO Last administered on 08:58; Start 11/28/16 at 09:00; Stop 11/29/16 at 11:47; Status DC Furosemide (Lasix) 40 mg 1X ONCE IVP Last administered on 11/27/16 14:42; Start 11/27/16 at 14:00; Stop 11/27/16 at 14:01; Status DC Potassium Chloride (Klor-Con) 40 meq 1X ONCE PO Last administered on 12:52; Start 11/27/16 at 11:15; Stop 11/27/16 at 11:16; Status DC Metoprolol Tartrate (Lopressor) 25 mg 1X ONCE PO Last administered on 12:50; Start 11/27/16 at 11:15; Stop 11/27/16 at 11:16; Status DC Lidocaine HCl 20 ml STK-MED ONCE .ROUTE ; Start 11/28/16 at 11:27; Stop at 11:28; Status DC Heparin Sodium/ Sodium Chloride 1,000 ml @ As Directed STK-MED ONCE .ROUTE ; Start 11/28/16 at 11:27; Stop 11/28/16 at 11:28; Status DC Heparin Sodium/ Sodium Chloride 1,000 unit 1X ONCE IART Last administered on 13:10; Start 11/28/16 at 12:00; Stop 11/28/16 at 12:03; Status DC Midazolam HCl (Versed) 2 mg 1X ONCE IV ; Start 11/28/16 at 12:00; Stop at 12:03; Status DC Fentanyl Citrate (Fentanyl 2ml Vial) 100 mcg 1X ONCE IV ; Start 11/28/16 at 12: 00; Stop 11/28/16 at 12:03; Status DC Iohexol (Omnipaque 300 Mg/ml) 100 ml 1X ONCE IART Last administered on 13:11; Start 11/28/16 at 12:00; Stop 11/28/16 at 12:03; Status DC Lidocaine HCl 20 ml 1X ONCE IJ Last administered on 11/28/16 13:11; Start at 12:00; Stop 11/28/16 at 12:03; Status DC Iohexol (Omnipaque 300 Mg/ml) 100 ml STK-MED ONCE .ROUTE ; Start 11/28/16 at 12: 14; Stop 11/28/16 at 12:15; Status DC Bivalirudin (Angiomax) 250 mg STK-MED ONCE IV ; Start 11/28/16 at 12:21; Stop at 12:22; Status DC Heparin Sodium/ Sodium Chloride 500 ml @ As Directed STK-MED ONCE .ROUTE ; Start 11/28/16 at 12:29; Stop 11/28/16 at 12:30; Status DC Iohexol (Omnipaque 300 Mg/ml) 100 ml STK-MED ONCE .ROUTE ; Start 11/28/16 at 12: 32; Stop 11/28/16 at 12:33; Status DC Dopamine HCl/ Dextrose 0 ml @ As Directed STK-MED ONCE IV ; Start 11/28/16 at 12 :33; Stop 11/28/16 at 12:34; Status DC Bivalirudin (Angiomax) 250 mg 1X ONCE IV Last administered on 11/28/16 13:12 ; Start 11/28/16 at 13:00; Stop 11/28/16 at 13:01; Status DC Ticagrelor (Brilinta) 90 mg STK-MED ONCE .ROUTE ; Start 11/28/16 at 13:00; Stop 11/28/16 at 13:01; Status DC Ticagrelor (Brilinta) 180 mg 1X ONCE PO Last administered on 11/28/16 13:10; Start 11/28/16 at 13:00; Stop 11/28/16 at 13:04; Status DC Sodium Chloride (Normal Saline Flush) 3 ml QSHIFT PRN IV AFTER MEDS AND BLOOD DRAWS; Start 11/28/16 at 13:15 Sodium Chloride 1,000 ml @ 50 mls/hr Q20H IV Last administered on 11/28/16 14 :40; Start 11/28/16 at 13:13 Aspirin (Ecotrin) 81 mg DAILYWBKFT PO Last administered on 11/30/16 08:25; Start 11/29/16 at 08:00 Ticagrelor (Brilinta) 90 mg BID PO Last administered on 11/30/16 08:25; Start 11/29/16 at 09:00 Acetaminophen (Tylenol) 650 mg PRN Q6HRS PRN PO MILD PAIN / TEMP; Start at 13:15 Fentanyl Citrate (Fentanyl 2ml Vial) 50 mcg PRN Q1HR PRN IV MODERATE OR SEVERE PAIN; Start 11/28/16 at 13:15 Nitroglycerin (Nitrostat) 0.4 mg PRN Q5MIN PRN SL CHEST PAIN; Start 11/28/16 at 13:15 Amiodarone HCl 150 mg/Dextrose 103 ml @ 10 mls/min 1X PRN PRN IV FOR VENTRICULAR TACHYCARDIA; Start 11/28/16 at 13:15 Lidocaine HCl (Lidocaine HCl 2% Abboject) 100 mg 1X PRN PRN IV FOR VENTRICULAR TACHYCARDIA; Start 11/28/16 at 13:15 Atropine Sulfate 0.5 mg PRN 1X PRN IV BRADYCARDIA; Start 11/28/16 at 13:15 Fentanyl Citrate (Fentanyl 2ml Vial) 25 mcg 1X ONCE IM ; Start 11/28/16 at 14: 11; Stop 11/28/16 at 14:12; Status Cancel Digoxin (Lanoxin) 125 mcg DAILY PO Last administered on 11/30/16 08:24; Start 11/29/16 at 12:00 Metoprolol Succinate (Toprol Xl) 50 mg DAILY PO Last administered on 11/30/16 08:26; Start 11/29/16 at 12:00 Rivaroxaban (Xarelto) 20 mg DAILYWSUP PO Last administered on 11/29/16 18:20; Start 11/29/16 at 17:00 Potassium Chloride (Klor-Con) 40 meq 1X ONCE PO Last administered on 12:18; Start 11/29/16 at 12:30; Stop 11/29/16 at 12:31; Status DC Digoxin (Lanoxin) 250 mcg 1X ONCE IV Last administered on 11/29/16 22:54; Start 11/29/16 at 22:45; Stop 11/29/16 at 22:46; Status DC Potassium Chloride (Klor-Con) 80 meq 1X ONCE PO Last administered on 05:47; Start 11/30/16 at 05:45; Stop 11/30/16 at 05:46; Status DC Potassium Chloride (Klor-Con) 40 meq DAILY PO ; Start 12/01/16 at 09:00 Potassium Chloride (Klor-Con) 40 meq 1X ONCE PO ; Start 11/30/16 at 10:30; Stop 11/30/16 at 10:30; Status DC Alprazolam (Xanax) 0.5 mg 1X ONCE PO Last administered on 11/30/16 12:13; Start 11/30/16 at 12:15; Stop 11/30/16 at 12:16; Status DC Alprazolam (Xanax) 0.5 mg PRN Q4HRS PRN PO ANXIETY / AGITATION; Start 11/30/16 at 13:00 Lisinopril (Prinivil) 5 mg QEVNG PO ; Start 11/30/16 at 18:00 Diltiazem HCl (Cardizem) 30 mg Q8HRS PO Last administered on 11/30/16 15:30; Start 11/30/16 at 14:00 Active Scripts Active Cefepime Hcl 1 Gm Vial 1 Gm IJ Q12HR 5 Days Alprazolam 0.25 Mg Tablet 0.5 Mg PO PRN Q6HRS PRN Reported Diltiazem 24HR Cd (Diltiazem Hcl) 180 Mg Cap.er.24h 1 Cap PO DAILY Aspir 81 (Aspirin) 81 Mg Tablet.dr 1 Tab PO DAILY Atorvastatin Calcium 20 Mg Tablet 20 Mg PO HS Amlodipine Besylate 5 Mg Tablet 5 Mg PO DAILY Ventolin Hfa Inhaler (Albuterol Sulfate) 18 Gm Hfa.aer.ad 2 Puff INH QID PRN Xarelto (Rivaroxaban) 20 Mg Tablet 20 Mg PO DAILY Metoprolol Tartrate 25 Mg Tablet 25 Mg PO BID Tamsulosin Hcl 0.4 Mg Cap.er.24h 1 Cap PO QEVNG Simvastatin 20 Mg Tablet 20 Mg PO HS Lisinopril 20 Mg Tablet 20 Mg PO QEVNG Vitals/I & O Vital Sign - Last 24 Hours 11/29/16 11/29/16 11/29/16 11/29/16 18:19 19:20 19:30 22:54 Temp 97.8 97.8 Pulse 138 134 135 Resp 24 B/P (MAP) 112/68 107/66 (80) 109/66 Pulse Ox 99 O2 Delivery Nasal Cannula Nasal Cannula O2 Flow Rate 3.0 3.0 11/29/16 11/30/16 11/30/16 11/30/16 23:43 03:03 07:00 08:00 Temp 97.9 97.4 97.5 97.9 97.4 97.5 Pulse 122 102 109 Resp 22 24 22 B/P (MAP) 109/66 (80) 97/54 (68) 124/72 (89) Pulse Ox 95 98 96 O2 Delivery Nasal Cannula Nasal Cannula Nasal Cannula Nasal Cannula O2 Flow Rate 3.0 4.0 3.0 11/30/16 11/30/16 11/30/16 11/30/16 08:24 08:26 10:58 15:30 Temp 97.4 97.4 Pulse 122 120 123 115 Resp 23 B/P (MAP) 124/72 124/72 113/58 (76) 119/79 Pulse Ox 96 O2 Delivery Nasal Cannula 11/30/16 15:57 Temp 97.5 97.5 Pulse 123 Resp 24 B/P (MAP) 128/78 (95) Pulse Ox 95 O2 Delivery Nasal Cannula Intake and Output 11/29/16 11/29/16 11/30/16 15:00 23:00 07:00 Intake Total 690 ml 600 ml Output Total 200 ml Balance 490 ml 600 ml ALLEN SALCEDO MD November 30, 2016 16:35
[2016-11-30] MEDS: RIVAROXABAN 10 MG TABLET. PO SCH (17:22)
[2016-11-30] MEDS: TAMSULOSIN 0.4 MG CAP.ER.24H. PO SCH (17:24)
[2016-11-30] MEDS: LISINOPRIL 20 MG TABLET PO SCH (17:26)
[2016-11-30 19:00] VITALS: BP 123/72
[2016-11-30] MEDS: ATORVASTATIN CALCIUM 20 MG TABLET PO SCH (21:09)
[2016-11-30 23:00] VITALS: BP 114/81
[2016-12-01] MEDS: IV NORMAL SALINE 1000ML BAG 1,000 ML IV SCH ×2 (01:13→21:13)
[2016-12-01 03:00] VITALS: BP 105/55
[2016-12-01] MEDS: dilTIAZem HCL 30 MG TABLET PO SCH ×3 (05:26→21:30)
[2016-12-01] MEDS: ALPRAZolam 0.5 MG TABLET PO PRN ×4 (06:33→21:30)
[2016-12-01 07:00] VITALS: BP 120/73
[2016-12-01] MEDS: INSULIN ASPART 300 UNITS/3 ML INSULN.PEN SQ SCH ×3 (08:00→17:00)
[2016-12-01] MEDS: TICAGRELOR 90 MG TABLET. PO SCH ×2 (08:35→21:30)
[2016-12-01] MEDS: ASPIRIN ENTERIC COATED 81 MG TABLET.DR. PO SCH (08:35)
[2016-12-01] MEDS: DIGOXIN 125 MCG TABLET. PO SCH (08:36)
[2016-12-01] MEDS: METOPROLOL SUCC 24HR ER 50 MG TAB.ER.24H. PO SCH (08:37)
[2016-12-01] MEDS: NICOTINE 21MG PATCH. TD SCH (08:37)
[2016-12-01] MEDS: FUROSEMIDE 40 MG/4 ML VIAL. IVP SCH (10:05)
[2016-12-01] MEDS: POTASSIUM CHLORIDE 20 MEQ TABLET.ER. PO SCH (10:06)
[2016-12-01 11:00] VITALS: BP 114/51
--- NOTE | 2016-12-01 11:08 | PDOC ---
PROGRESS NOTES Chief Complaint Chief Complaint Atrial fibrillation w/ RVR ASSESSMENT AND PLAN: 1. Afib w/ RVR: rate not controlled, on OAC, Digoxin, Metoprolol and Cardizem , possible cardioversion in AM, if not contorted. 2. CHF: systolic (EF <20%). IV Lasix. s/p cardiac cath, BM stent- RCA on 11/28, continue diuresis, Monitor renal functions 3. HTN: well controlled on BB, DESTINI-I 4. OAC: started on Xarelto 5. DM: ISS. HgbA1c better, 6.8 6. HLD: well controlled on statin 7. Hyponatremia: resolved. 8. CKD3: stable. History of Present Illness History of Present Illness tachy d/w at bedside no chest pain wants to go home Vitals Vitals Vital Signs Date Time Temp Pulse Resp B/P (MAP) Pulse Ox O2 Delivery O2 Flow Rate FiO2 12/01/16 08:37 123 120/73 12/01/16 08:00 Nasal Cannula 3.0 12/01/16 07:00 97.4 23 95 97.4 Physical Exam General: Alert, Oriented X3, Cooperative Heart: Other (2/6 systolic murmur, IRR- tele AFIB with intermittent rate elevation) Abdomen: Soft, No tenderness Extremities: Normal pulses, Other (1-2+ edema LE) Skin: No breakdown, No significant lesion Labs LABS Laboratory Tests Test 11/30/16 17:10 11/30/16 21:06 12/01/16 07:37 Glucose (Fingerstick) 119 mg/dL (70-99) 135 mg/dL (70-99) 107 mg/dL (70-99) Assessment and Plan Assessmemt and Plan Problems Medical Problems: (1) Acute congestive heart failure Status: Acute (2) Atrial fibrillation Status: Acute (3) Mild protein malnutrition Status: Acute (4) Pulmonary edema Status: Acute Problems: Comment Review of Relevant I have reviewed the following items wander (where applicable) has been applied. Labs Laboratory Tests Test 11/29/16 11:32 11/29/16 17:33 11/29/16 21:28 11/30/16 03:52 Glucose (Fingerstick) 166 mg/dL (70-99) 124 mg/dL (70-99) Urine Color Anh Urine Clarity Clear Urine pH 6.0 Urine Specific [place] 1.025 Urine Protein Negative mg/dL (NEG-TRACE) Urine Glucose (UA) Negative mg/dL (NEG) Urine Ketones (Stick) Negative mg/dL (NEG) Urine Blood Large (NEG) Urine Nitrite Negative (NEG) Urine Bilirubin Small (NEG) Urine Urobilinogen Dipstick 1.0 mg/dL (0.2 mg/dL) Urine Leukocyte Esterase Moderate (NEG) Urine RBC 11-20 /HPF (0-2) Urine WBC 11-20 /HPF (0-4) Urine Squamous Epithelial Cells Occ /LPF Urine Bacteria Few /HPF (0-FEW) White Blood Count 7.9 x10^3/uL (4.0-11.0) Red Blood Count 4.29 x10^6/uL (4.30-5.70) Hemoglobin 13.0 g/dL (13.0-17.5) Hematocrit 37.2 % (39.0-53.0) Mean Corpuscular Volume 87 fL (79-100) Mean Corpuscular Hemoglobin 30 pg (25-35) Mean Corpuscular Hemoglobin Concent 35 g/dL (31-37) Red Cell Distribution Width 14.5 % (11.5-14.5) Platelet Count 178 x10^3/uL (140-400) Neutrophils (%) (Auto) 73 % (31-73) Lymphocytes (%) (Auto) 13 % (24-48) Monocytes (%) (Auto) 12 % (0-9) Eosinophils (%) (Auto) 2 % (0-3) Basophils (%) (Auto) 0 % (0-3) Neutrophils # (Auto) 5.7 x10^3uL (1.8-7.7) Lymphocytes # (Auto) 1.0 x10^3/uL (1.0-4.8) Monocytes # (Auto) 1.0 x10^3/uL (0.0-1.1) Eosinophils # (Auto) 0.2 x10^3/uL (0.0-0.7) Basophils # (Auto) 0.0 x10^3/uL (0.0-0.2) Sodium Level 137 mmol/L (136-145) Potassium Level 2.9 mmol/L (3.5-5.1) Chloride Level 102 mmol/L (98-107) Carbon Dioxide Level 27 mmol/L (21-32) Anion Gap 8 (6-14) Blood Urea Nitrogen 16 mg/dL (8-26) Creatinine 1.1 mg/dL (0.7-1.3) Estimated GFR (Cockcroft-Gault) 65.1 Glucose Level 118 mg/dL (70-99) Calcium Level 8.1 mg/dL (8.5-10.1) Magnesium Level 1.9 mg/dL (1.8-2.4) Test 11/30/16 07:44 11/30/16 17:10 11/30/16 21:06 12/01/16 07:37 Glucose (Fingerstick) 124 mg/dL (70-99) 119 mg/dL (70-99) 135 mg/dL (70-99) 107 mg/dL (70-99) Laboratory Tests Test 11/30/16 17:10 11/30/16 21:06 12/01/16 07:37 Glucose (Fingerstick) 119 mg/dL (70-99) 135 mg/dL (70-99) 107 mg/dL (70-99) Medications Current Medications Sodium Chloride 1,000 ml @ 60 mls/hr [id number] IV Last administered on 19:42; Start 11/25/16 at 19:15; Stop 11/26/16 at 11:54; Status DC Furosemide (Lasix) 40 mg 1X ONCE IVP Last administered on 11/25/16 19:42; Start 11/25/16 at 19:30; Stop 11/25/16 at 19:31; Status DC Ondansetron HCl (Zofran) 4 mg PRN Q8HRS PRN IV NAUSEA/VOMITING; Start 11/25/16 at 20:45; Stop 11/26/16 at 20:44; Status DC Sodium Chloride 1,000 ml @ 60 mls/hr [id number] IV ; Start 11/25/16 at 20:42; Stop 11/26/16 at 20:41; Status DC Acetaminophen (Tylenol) 650 mg PRN Q4HRS PRN PO FEVER; Start 11/25/16 at 20:45 ; Stop 11/26/16 at 20:44; Status DC Alprazolam (Xanax) 0.5 mg PRN Q6HRS PRN PO ANXIETY / AGITATION Last administered on 11/30/16 08:25; Start 11/26/16 at 00:00; Stop 11/30/16 at 12:57 ; Status DC Lisinopril (Prinivil) 20 mg QEVNG PO Last administered on 11/29/16 18:19; Start 11/26/16 at 18:00; Stop 11/30/16 at 13:05; Status DC Simvastatin (Zocor) 20 mg HS PO ; Start 11/26/16 at 21:00; Stop 11/26/16 at 21: 00; Status DC Tamsulosin HCl (Flomax) 0.4 mg QEVNG PO Last administered on 11/30/16 17:24; Start 11/26/16 at 18:00 Aspirin (Children'S Aspirin) 81 mg DAILYWBKFT PO Last administered on 08:57; Start 11/26/16 at 08:00; Stop 11/28/16 at 13:19; Status DC Potassium Chloride (Klor-Con) 40 meq 1X ONCE PO Last administered on 11:08; Start 11/26/16 at 10:30; Stop 11/26/16 at 10:31; Status DC Furosemide (Lasix) 40 mg DAILY IVP Last administered on 12/01/16 10:05; Start 11/26/16 at 13:00 Potassium Chloride (Klor-Con) 20 meq DAILYWBKFT PO Last administered on 09:31; Start 11/26/16 at 13:00; Stop 11/30/16 at 08:42; Status DC Metoprolol Succinate (Toprol Xl) 75 mg DAILY PO Last administered on 11/27/16 08:32; Start 11/26/16 at 13:00; Stop 11/27/16 at 09:36; Status DC Magnesium Sulfate/ Dextrose 50 ml @ 25 mls/hr 1X ONCE IV Last administered on 11/26/16 12:25; Start 11/26/16 at 12:00; Stop 11/26/16 at 13:59; Status DC Insulin Aspart (NovoLOG) 0-5 UNITS TIDWMEALS SQ ; Start 11/26/16 at 17:00 Dextrose (Dextrose 50%-Water Syringe) 12.5 gm PRN Q15MIN PRN IV SEE COMMENTS; Start 11/26/16 at 14:15 Rivaroxaban (Xarelto) 15 mg BIDWMEALS PO Last administered on 11/26/16 17:18; Start 11/26/16 at 17:00; Stop 11/27/16 at 08:23; Status DC Info (Anti-Coagulation Monitoring By Pharmacy) 1 each PRN DAILY PRN MC SEE COMMENTS Last administered on 11/30/16 07:22; Start 11/26/16 at 14:15 Enoxaparin Sodium (Lovenox Per Pharmacy Treatment Dosing) 1 each PRN DAILY PRN MC SEE COMMENTS; Start 11/26/16 at 15:30; Stop 11/29/16 at 11:58; Status DC Enoxaparin Sodium (Lovenox 100mg Syringe) 100 mg Q12HR SQ Last administered on 11/29/16 09:31; Start 11/26/16 at 21:00; Stop 11/29/16 at 11:58; Status DC Nicotine (Nicoderm Cq 21mg) 1 patch DAILY TD Last administered on 12/01/16 08: 37; Start 11/26/16 at 19:00 Nicotine (Nicoderm Cq 21mg) 1 patch 1X ONCE TD ; Start 11/26/16 at 18:45; Stop 11/26/16 at 18:46; Status UNV Atorvastatin Calcium (Lipitor) 20 mg HS PO Last administered on 11/30/16 21:09 ; Start 11/26/16 at 21:00 Metoprolol Succinate (Toprol Xl) 100 mg DAILY PO Last administered on 08:58; Start 11/28/16 at 09:00; Stop 11/29/16 at 11:47; Status DC Furosemide (Lasix) 40 mg 1X ONCE IVP Last administered on 11/27/16 14:42; Start 11/27/16 at 14:00; Stop 11/27/16 at 14:01; Status DC Potassium Chloride (Klor-Con) 40 meq 1X ONCE PO Last administered on 12:52; Start 11/27/16 at 11:15; Stop 11/27/16 at 11:16; Status DC Metoprolol Tartrate (Lopressor) 25 mg 1X ONCE PO Last administered on 5/17/ 17at 12:50; Start 11/27/16 at 11:15; Stop 11/27/16 at 11:16; Status DC Lidocaine HCl 20 ml STK-MED ONCE .ROUTE ; Start 11/28/16 at 11:27; Stop at 11:28; Status DC Heparin Sodium/ Sodium Chloride 1,000 ml @ As Directed STK-MED ONCE .ROUTE ; Start 11/28/16 at 11:27; Stop 11/28/16 at 11:28; Status DC Heparin Sodium/ Sodium Chloride 1,000 unit 1X ONCE IART Last administered on 13:10; Start 11/28/16 at 12:00; Stop 11/28/16 at 12:03; Status DC Midazolam HCl (Versed) 2 mg 1X ONCE IV ; Start 11/28/16 at 12:00; Stop at 12:03; Status DC Fentanyl Citrate (Fentanyl 2ml Vial) 100 mcg 1X ONCE IV ; Start 11/28/16 at 12: 00; Stop 11/28/16 at 12:03; Status DC Iohexol (Omnipaque 300 Mg/ml) 100 ml 1X ONCE IART Last administered on 13:11; Start 11/28/16 at 12:00; Stop 11/28/16 at 12:03; Status DC Lidocaine HCl 20 ml 1X ONCE IJ Last administered on 11/28/16 13:11; Start at 12:00; Stop 11/28/16 at 12:03; Status DC Iohexol (Omnipaque 300 Mg/ml) 100 ml STK-MED ONCE .ROUTE ; Start 11/28/16 at 12: 14; Stop 11/28/16 at 12:15; Status DC Bivalirudin (Angiomax) 250 mg STK-MED ONCE IV ; Start 11/28/16 at 12:21; Stop at 12:22; Status DC Heparin Sodium/ Sodium Chloride 500 ml @ As Directed STK-MED ONCE .ROUTE ; Start 11/28/16 at 12:29; Stop 11/28/16 at 12:30; Status DC Iohexol (Omnipaque 300 Mg/ml) 100 ml STK-MED ONCE .ROUTE ; Start 11/28/16 at 12: 32; Stop 11/28/16 at 12:33; Status DC Dopamine HCl/ Dextrose 0 ml @ As Directed STK-MED ONCE IV ; Start 11/28/16 at 12 :33; Stop 11/28/16 at 12:34; Status DC Bivalirudin (Angiomax) 250 mg 1X ONCE IV Last administered on 11/28/16 13:12 ; Start 11/28/16 at 13:00; Stop 11/28/16 at 13:01; Status DC Ticagrelor (Brilinta) 90 mg STK-MED ONCE .ROUTE ; Start 11/28/16 at 13:00; Stop 11/28/16 at 13:01; Status DC Ticagrelor (Brilinta) 180 mg 1X ONCE PO Last administered on 11/28/16 13:10; Start 11/28/16 at 13:00; Stop 11/28/16 at 13:04; Status DC Sodium Chloride (Normal Saline Flush) 3 ml QSHIFT PRN IV AFTER MEDS AND BLOOD DRAWS; Start 11/28/16 at 13:15 Sodium Chloride 1,000 ml @ 50 mls/hr Q20H IV Last administered on 11/28/16 14 :40; Start 11/28/16 at 13:13 Aspirin (Ecotrin) 81 mg DAILYWBKFT PO Last administered on 12/01/16 08:35; Start 11/29/16 at 08:00 Ticagrelor (Brilinta) 90 mg BID PO Last administered on 12/01/16 08:35; Start 11/29/16 at 09:00 Acetaminophen (Tylenol) 650 mg PRN Q6HRS PRN PO MILD PAIN / TEMP; Start at 13:15 Fentanyl Citrate (Fentanyl 2ml Vial) 50 mcg PRN Q1HR PRN IV MODERATE OR SEVERE PAIN; Start 11/28/16 at 13:15 Nitroglycerin (Nitrostat) 0.4 mg PRN Q5MIN PRN SL CHEST PAIN; Start 11/28/16 at 13:15 Amiodarone HCl 150 mg/Dextrose 103 ml @ 10 mls/min 1X PRN PRN IV FOR VENTRICULAR TACHYCARDIA; Start 11/28/16 at 13:15 Lidocaine HCl (Lidocaine HCl 2% Abboject) 100 mg 1X PRN PRN IV FOR VENTRICULAR TACHYCARDIA; Start 11/28/16 at 13:15 Atropine Sulfate 0.5 mg PRN 1X PRN IV BRADYCARDIA; Start 11/28/16 at 13:15 Fentanyl Citrate (Fentanyl 2ml Vial) 25 mcg 1X ONCE IM ; Start 11/28/16 at 14: 11; Stop 11/28/16 at 14:12; Status Cancel Digoxin (Lanoxin) 125 mcg DAILY PO Last administered on 12/01/16 08:36; Start 11/29/16 at 12:00 Metoprolol Succinate (Toprol Xl) 50 mg DAILY PO Last administered on 12/01/16 08:37; Start 11/29/16 at 12:00 Rivaroxaban (Xarelto) 20 mg DAILYWSUP PO Last administered on 11/30/16 17:22; Start 11/29/16 at 17:00 Potassium Chloride (Klor-Con) 40 meq 1X ONCE PO Last administered on 12:18; Start 11/29/16 at 12:30; Stop 11/29/16 at 12:31; Status DC Digoxin (Lanoxin) 250 mcg 1X ONCE IV Last administered on 11/29/16 22:54; Start 11/29/16 at 22:45; Stop 11/29/16 at 22:46; Status DC Potassium Chloride (Klor-Con) 80 meq 1X ONCE PO Last administered on 05:47; Start 11/30/16 at 05:45; Stop 11/30/16 at 05:46; Status DC Potassium Chloride (Klor-Con) 40 meq DAILY PO Last administered on 12/01/16 10 :06; Start 12/01/16 at 09:00 Potassium Chloride (Klor-Con) 40 meq 1X ONCE PO ; Start 11/30/16 at 10:30; Stop 11/30/16 at 10:30; Status DC Alprazolam (Xanax) 0.5 mg 1X ONCE PO Last administered on 11/30/16 12:13; Start 11/30/16 at 12:15; Stop 11/30/16 at 12:16; Status DC Alprazolam (Xanax) 0.5 mg PRN Q4HRS PRN PO ANXIETY / AGITATION Last administered on 12/01/16 06:33; Start 11/30/16 at 13:00 Lisinopril (Prinivil) 5 mg QEVNG PO Last administered on 11/30/16 17:26; Start 11/30/16 at 18:00 Diltiazem HCl (Cardizem) 30 mg Q8HRS PO Last administered on 12/01/16 05:26; Start 11/30/16 at 14:00 Active Scripts Active Cefepime Hcl 1 Gm Vial 1 Gm IJ Q12HR 5 Days Alprazolam 0.25 Mg Tablet 0.5 Mg PO PRN Q6HRS PRN Reported Diltiazem 24HR Cd (Diltiazem Hcl) 180 Mg Cap.er.24h 1 Cap PO DAILY Aspir 81 (Aspirin) 81 Mg Tablet.dr 1 Tab PO DAILY Atorvastatin Calcium 20 Mg Tablet 20 Mg PO HS Amlodipine Besylate 5 Mg Tablet 5 Mg PO DAILY Ventolin Hfa Inhaler (Albuterol Sulfate) 18 Gm Hfa.aer.ad 2 Puff INH QID PRN Xarelto (Rivaroxaban) 20 Mg Tablet 20 Mg PO DAILY Metoprolol Tartrate 25 Mg Tablet 25 Mg PO BID Tamsulosin Hcl 0.4 Mg Cap.er.24h 1 Cap PO QEVNG Simvastatin 20 Mg Tablet 20 Mg PO HS Lisinopril 20 Mg Tablet 20 Mg PO QEVNG Vitals/I & O Vital Sign - Last 24 Hours 11/30/16 11/30/16 11/30/16 11/30/16 15:30 15:57 17:26 19:00 Temp 97.5 96.4 97.5 96.4 Pulse 115 123 91 109 Resp 24 18 B/P (MAP) 119/79 128/78 (95) 114/69 123/72 (89) Pulse Ox 95 96 O2 Delivery Nasal Cannula Nasal Cannula O2 Flow Rate 3.0 11/30/16 11/30/16 11/30/16 12/01/16 19:50 21:09 23:00 03:00 Temp 96.8 96.5 96.8 96.5 Pulse 97 113 102 Resp 18 18 B/P (MAP) 120/78 114/81 (92) 105/55 (72) Pulse Ox 91 92 O2 Delivery Nasal Cannula Nasal Cannula Nasal Cannula O2 Flow Rate 3.0 12/01/16 12/01/16 12/01/16 12/01/16 05:26 07:00 08:00 08:36 Temp 97.4 97.4 Pulse 110 88 123 Resp 23 B/P (MAP) 116/62 120/73 (89) 120/73 Pulse Ox 95 O2 Delivery Nasal Cannula Nasal Cannula O2 Flow Rate 3.0 12/01/16 08:37 Pulse 123 B/P (MAP) 120/73 Intake and Output 11/30/16 11/30/16 12/01/16 15:00 23:00 07:00 Intake Total 820 ml 510 ml Output Total 1620 ml Balance -800 ml 510 ml ALLEN SALCEDO MD December 01, 2016 11:08
--- NOTE | 2016-12-01 12:26 | PDOC ---
PROGRESS NOTES Subjective Subjective The patient is feeling better. Objective Objective Vital Signs Date Time Temp Pulse Resp B/P (MAP) Pulse Ox O2 Delivery O2 Flow Rate FiO2 12/01/16 11:00 98.9 91 22 114/51 (72) 97 Nasal Cannula 2.0 98.9 Intake and Output 12/01/16 07:00 Intake Total 1330 ml Output Total 1620 ml Balance -290 ml Intake Oral 1330 ml Output Urine Total 1620 ml # Bowel Movements 1 Physical Exam Abdomen: Normal bowel sounds Heart: Other (irreg. irreg.) General: mild distress HEENT: Atraumatic Lungs: Other (mildly decreased breath sounds) Assessment Assessment Problems Medical Problems: (1) Acute congestive heart failure Status: Acute (2) Atrial fibrillation Status: Acute (3) Mild protein malnutrition Status: Acute (4) Pulmonary edema Status: Acute Assessment Assessment 1. Acute on chronic systolic heart failure: improving. EF 20% 2. ICM: 3. CAD: s/p PCI/BMS to RCA 4. AFIB RVR: Weight somewhat improved today. We'll continue medications and adjust as needed. We'll monitor overnight and in the morning decide on possible cardioversion. This was again discussed with the patient and his family. 5. HTN: was hypotensive and slightly better 6. DM2/HLP 7. Hypokalemia Comment Review of Relevant I have reviewed the following items wander (where applicable) has been applied. Labs Laboratory Tests Test 11/29/16 17:33 11/29/16 21:28 11/30/16 03:52 11/30/16 07:44 Glucose (Fingerstick) 124 mg/dL (70-99) 124 mg/dL (70-99) Urine Color Anh Urine Clarity Clear Urine pH 6.0 Urine Specific [place] 1.025 Urine Protein Negative mg/dL (NEG-TRACE) Urine Glucose (UA) Negative mg/dL (NEG) Urine Ketones (Stick) Negative mg/dL (NEG) Urine Blood Large (NEG) Urine Nitrite Negative (NEG) Urine Bilirubin Small (NEG) Urine Urobilinogen Dipstick 1.0 mg/dL (0.2 mg/dL) Urine Leukocyte Esterase Moderate (NEG) Urine RBC 11-20 /HPF (0-2) Urine WBC 11-20 /HPF (0-4) Urine Squamous Epithelial Cells Occ /LPF Urine Bacteria Few /HPF (0-FEW) White Blood Count 7.9 x10^3/uL (4.0-11.0) Red Blood Count 4.29 x10^6/uL (4.30-5.70) Hemoglobin 13.0 g/dL (13.0-17.5) Hematocrit 37.2 % (39.0-53.0) Mean Corpuscular Volume 87 fL (79-100) Mean Corpuscular Hemoglobin 30 pg (25-35) Mean Corpuscular Hemoglobin Concent 35 g/dL (31-37) Red Cell Distribution Width 14.5 % (11.5-14.5) Platelet Count 178 x10^3/uL (140-400) Neutrophils (%) (Auto) 73 % (31-73) Lymphocytes (%) (Auto) 13 % (24-48) Monocytes (%) (Auto) 12 % (0-9) Eosinophils (%) (Auto) 2 % (0-3) Basophils (%) (Auto) 0 % (0-3) Neutrophils # (Auto) 5.7 x10^3uL (1.8-7.7) Lymphocytes # (Auto) 1.0 x10^3/uL (1.0-4.8) Monocytes # (Auto) 1.0 x10^3/uL (0.0-1.1) Eosinophils # (Auto) 0.2 x10^3/uL (0.0-0.7) Basophils # (Auto) 0.0 x10^3/uL (0.0-0.2) Sodium Level 137 mmol/L (136-145) Potassium Level 2.9 mmol/L (3.5-5.1) Chloride Level 102 mmol/L (98-107) Carbon Dioxide Level 27 mmol/L (21-32) Anion Gap 8 (6-14) Blood Urea Nitrogen 16 mg/dL (8-26) Creatinine 1.1 mg/dL (0.7-1.3) Estimated GFR (Cockcroft-Gault) 65.1 Glucose Level 118 mg/dL (70-99) Calcium Level 8.1 mg/dL (8.5-10.1) Magnesium Level 1.9 mg/dL (1.8-2.4) Test 11/30/16 17:10 11/30/16 21:06 12/01/16 07:37 12/01/16 10:32 Glucose (Fingerstick) 119 mg/dL (70-99) 135 mg/dL (70-99) 107 mg/dL (70-99) 159 mg/dL (70-99) Laboratory Tests Test 11/30/16 17:10 11/30/16 21:06 12/01/16 07:37 12/01/16 10:32 Glucose (Fingerstick) 119 mg/dL (70-99) 135 mg/dL (70-99) 107 mg/dL (70-99) 159 mg/dL (70-99) Microbiology 11/29/16 Urine Culture - Preliminary, Resulted 11/29/16 Urine Culture Result 1 (MARITA) - Preliminary, Resulted Medications Current Medications Sodium Chloride 1,000 ml @ 60 mls/hr [id number] IV Last administered on 19:42; Start 11/25/16 at 19:15; Stop 11/26/16 at 11:54; Status DC Furosemide (Lasix) 40 mg 1X ONCE IVP Last administered on 11/25/16 19:42; Start 11/25/16 at 19:30; Stop 11/25/16 at 19:31; Status DC Ondansetron HCl (Zofran) 4 mg PRN Q8HRS PRN IV NAUSEA/VOMITING; Start 11/25/16 at 20:45; Stop 11/26/16 at 20:44; Status DC Sodium Chloride 1,000 ml @ 60 mls/hr [id number] IV ; Start 11/25/16 at 20:42; Stop 11/26/16 at 20:41; Status DC Acetaminophen (Tylenol) 650 mg PRN Q4HRS PRN PO FEVER; Start 11/25/16 at 20:45 ; Stop 11/26/16 at 20:44; Status DC Alprazolam (Xanax) 0.5 mg PRN Q6HRS PRN PO ANXIETY / AGITATION Last administered on 11/30/16 08:25; Start 11/26/16 at 00:00; Stop 11/30/16 at 12:57 ; Status DC Lisinopril (Prinivil) 20 mg QEVNG PO Last administered on 11/29/16 18:19; Start 11/26/16 at 18:00; Stop 11/30/16 at 13:05; Status DC Simvastatin (Zocor) 20 mg HS PO ; Start 11/26/16 at 21:00; Stop 11/26/16 at 21: 00; Status DC Tamsulosin HCl (Flomax) 0.4 mg QEVNG PO Last administered on 11/30/16 17:24; Start 11/26/16 at 18:00 Aspirin (Children'S Aspirin) 81 mg DAILYWBKFT PO Last administered on 08:57; Start 11/26/16 at 08:00; Stop 11/28/16 at 13:19; Status DC Potassium Chloride (Klor-Con) 40 meq 1X ONCE PO Last administered on 11:08; Start 11/26/16 at 10:30; Stop 11/26/16 at 10:31; Status DC Furosemide (Lasix) 40 mg DAILY IVP Last administered on 12/01/16 10:05; Start 11/26/16 at 13:00 Potassium Chloride (Klor-Con) 20 meq DAILYWBKFT PO Last administered on 09:31; Start 11/26/16 at 13:00; Stop 11/30/16 at 08:42; Status DC Metoprolol Succinate (Toprol Xl) 75 mg DAILY PO Last administered on 11/27/16 08:32; Start 11/26/16 at 13:00; Stop 11/27/16 at 09:36; Status DC Magnesium Sulfate/ Dextrose 50 ml @ 25 mls/hr 1X ONCE IV Last administered on 11/26/16 12:25; Start 11/26/16 at 12:00; Stop 11/26/16 at 13:59; Status DC Insulin Aspart (NovoLOG) 0-5 UNITS TIDWMEALS SQ ; Start 11/26/16 at 17:00 Dextrose (Dextrose 50%-Water Syringe) 12.5 gm PRN Q15MIN PRN IV SEE COMMENTS; Start 11/26/16 at 14:15 Rivaroxaban (Xarelto) 15 mg BIDWMEALS PO Last administered on 11/26/16 17:18; Start 11/26/16 at 17:00; Stop 11/27/16 at 08:23; Status DC Info (Anti-Coagulation Monitoring By Pharmacy) 1 each PRN DAILY PRN MC SEE COMMENTS Last administered on 11/30/16 07:22; Start 11/26/16 at 14:15 Enoxaparin Sodium (Lovenox Per Pharmacy Treatment Dosing) 1 each PRN DAILY PRN MC SEE COMMENTS; Start 11/26/16 at 15:30; Stop 11/29/16 at 11:58; Status DC Enoxaparin Sodium (Lovenox 100mg Syringe) 100 mg Q12HR SQ Last administered on 11/29/16 09:31; Start 11/26/16 at 21:00; Stop 11/29/16 at 11:58; Status DC Nicotine (Nicoderm Cq 21mg) 1 patch DAILY TD Last administered on 12/01/16 08: 37; Start 11/26/16 at 19:00 Nicotine (Nicoderm Cq 21mg) 1 patch 1X ONCE TD ; Start 11/26/16 at 18:45; Stop 11/26/16 at 18:46; Status UNV Atorvastatin Calcium (Lipitor) 20 mg HS PO Last administered on 11/30/16 21:09 ; Start 11/26/16 at 21:00 Metoprolol Succinate (Toprol Xl) 100 mg DAILY PO Last administered on 08:58; Start 11/28/16 at 09:00; Stop 11/29/16 at 11:47; Status DC Furosemide (Lasix) 40 mg 1X ONCE IVP Last administered on 11/27/16 14:42; Start 11/27/16 at 14:00; Stop 11/27/16 at 14:01; Status DC Potassium Chloride (Klor-Con) 40 meq 1X ONCE PO Last administered on 12:52; Start 11/27/16 at 11:15; Stop 11/27/16 at 11:16; Status DC Metoprolol Tartrate (Lopressor) 25 mg 1X ONCE PO Last administered on 12:50; Start 11/27/16 at 11:15; Stop 11/27/16 at 11:16; Status DC Lidocaine HCl 20 ml STK-MED ONCE .ROUTE ; Start 11/28/16 at 11:27; Stop at 11:28; Status DC Heparin Sodium/ Sodium Chloride 1,000 ml @ As Directed STK-MED ONCE .ROUTE ; Start 11/28/16 at 11:27; Stop 11/28/16 at 11:28; Status DC Heparin Sodium/ Sodium Chloride 1,000 unit 1X ONCE IART Last administered on 13:10; Start 11/28/16 at 12:00; Stop 11/28/16 at 12:03; Status DC Midazolam HCl (Versed) 2 mg 1X ONCE IV ; Start 11/28/16 at 12:00; Stop at 12:03; Status DC Fentanyl Citrate (Fentanyl 2ml Vial) 100 mcg 1X ONCE IV ; Start 11/28/16 at 12: 00; Stop 11/28/16 at 12:03; Status DC Iohexol (Omnipaque 300 Mg/ml) 100 ml 1X ONCE IART Last administered on 13:11; Start 11/28/16 at 12:00; Stop 11/28/16 at 12:03; Status DC Lidocaine HCl 20 ml 1X ONCE IJ Last administered on 11/28/16 13:11; Start at 12:00; Stop 11/28/16 at 12:03; Status DC Iohexol (Omnipaque 300 Mg/ml) 100 ml STK-MED ONCE .ROUTE ; Start 11/28/16 at 12: 14; Stop 11/28/16 at 12:15; Status DC Bivalirudin (Angiomax) 250 mg STK-MED ONCE IV ; Start 11/28/16 at 12:21; Stop at 12:22; Status DC Heparin Sodium/ Sodium Chloride 500 ml @ As Directed STK-MED ONCE .ROUTE ; Start 11/28/16 at 12:29; Stop 11/28/16 at 12:30; Status DC Iohexol (Omnipaque 300 Mg/ml) 100 ml STK-MED ONCE .ROUTE ; Start 11/28/16 at 12: 32; Stop 11/28/16 at 12:33; Status DC Dopamine HCl/ Dextrose 0 ml @ As Directed STK-MED ONCE IV ; Start 11/28/16 at 12 :33; Stop 11/28/16 at 12:34; Status DC Bivalirudin (Angiomax) 250 mg 1X ONCE IV Last administered on 11/28/16 13:12 ; Start 11/28/16 at 13:00; Stop 11/28/16 at 13:01; Status DC Ticagrelor (Brilinta) 90 mg STK-MED ONCE .ROUTE ; Start 11/28/16 at 13:00; Stop 11/28/16 at 13:01; Status DC Ticagrelor (Brilinta) 180 mg 1X ONCE PO Last administered on 11/28/16 13:10; Start 11/28/16 at 13:00; Stop 11/28/16 at 13:04; Status DC Sodium Chloride (Normal Saline Flush) 3 ml QSHIFT PRN IV AFTER MEDS AND BLOOD DRAWS; Start 11/28/16 at 13:15 Sodium Chloride 1,000 ml @ 50 mls/hr Q20H IV Last administered on 11/28/16 14 :40; Start 11/28/16 at 13:13 Aspirin (Ecotrin) 81 mg DAILYWBKFT PO Last administered on 12/01/16 08:35; Start 11/29/16 at 08:00 Ticagrelor (Brilinta) 90 mg BID PO Last administered on 12/01/16 08:35; Start 11/29/16 at 09:00 Acetaminophen (Tylenol) 650 mg PRN Q6HRS PRN PO MILD PAIN / TEMP; Start at 13:15 Fentanyl Citrate (Fentanyl 2ml Vial) 50 mcg PRN Q1HR PRN IV MODERATE OR SEVERE PAIN; Start 11/28/16 at 13:15 Nitroglycerin (Nitrostat) 0.4 mg PRN Q5MIN PRN SL CHEST PAIN; Start 11/28/16 at 13:15 Amiodarone HCl 150 mg/Dextrose 103 ml @ 10 mls/min 1X PRN PRN IV FOR VENTRICULAR TACHYCARDIA; Start 11/28/16 at 13:15 Lidocaine HCl (Lidocaine HCl 2% Abboject) 100 mg 1X PRN PRN IV FOR VENTRICULAR TACHYCARDIA; Start 11/28/16 at 13:15 Atropine Sulfate 0.5 mg PRN 1X PRN IV BRADYCARDIA; Start 11/28/16 at 13:15 Fentanyl Citrate (Fentanyl 2ml Vial) 25 mcg 1X ONCE IM ; Start 11/28/16 at 14: 11; Stop 11/28/16 at 14:12; Status Cancel Digoxin (Lanoxin) 125 mcg DAILY PO Last administered on 12/01/16 08:36; Start 11/29/16 at 12:00 Metoprolol Succinate (Toprol Xl) 50 mg DAILY PO Last administered on 12/01/16 08:37; Start 11/29/16 at 12:00 Rivaroxaban (Xarelto) 20 mg DAILYWSUP PO Last administered on 11/30/16 17:22; Start 11/29/16 at 17:00 Potassium Chloride (Klor-Con) 40 meq 1X ONCE PO Last administered on 12:18; Start 11/29/16 at 12:30; Stop 11/29/16 at 12:31; Status DC Digoxin (Lanoxin) 250 mcg 1X ONCE IV Last administered on 11/29/16 22:54; Start 11/29/16 at 22:45; Stop 11/29/16 at 22:46; Status DC Potassium Chloride (Klor-Con) 80 meq 1X ONCE PO Last administered on 05:47; Start 11/30/16 at 05:45; Stop 11/30/16 at 05:46; Status DC Potassium Chloride (Klor-Con) 40 meq DAILY PO Last administered on 12/01/16 10 :06; Start 12/01/16 at 09:00 Potassium Chloride (Klor-Con) 40 meq 1X ONCE PO ; Start 11/30/16 at 10:30; Stop 11/30/16 at 10:30; Status DC Alprazolam (Xanax) 0.5 mg 1X ONCE PO Last administered on 11/30/16 12:13; Start 11/30/16 at 12:15; Stop 11/30/16 at 12:16; Status DC Alprazolam (Xanax) 0.5 mg PRN Q4HRS PRN PO ANXIETY / AGITATION Last administered on 12/01/16 12:20; Start 11/30/16 at 13:00 Lisinopril (Prinivil) 5 mg QEVNG PO Last administered on 11/30/16 17:26; Start 11/30/16 at 18:00 Diltiazem HCl (Cardizem) 30 mg Q8HRS PO Last administered on 12/01/16 05:26; Start 11/30/16 at 14:00 Active Scripts Active Cefepime Hcl 1 Gm Vial 1 Gm IJ Q12HR 5 Days Alprazolam 0.25 Mg Tablet 0.5 Mg PO PRN Q6HRS PRN Reported Diltiazem 24HR Cd (Diltiazem Hcl) 180 Mg Cap.er.24h 1 Cap PO DAILY Aspir 81 (Aspirin) 81 Mg Tablet.dr 1 Tab PO DAILY Atorvastatin Calcium 20 Mg Tablet 20 Mg PO HS Amlodipine Besylate 5 Mg Tablet 5 Mg PO DAILY Ventolin Hfa Inhaler (Albuterol Sulfate) 18 Gm Hfa.aer.ad 2 Puff INH QID PRN Xarelto (Rivaroxaban) 20 Mg Tablet 20 Mg PO DAILY Metoprolol Tartrate 25 Mg Tablet 25 Mg PO BID Tamsulosin Hcl 0.4 Mg Cap.er.24h 1 Cap PO QEVNG Simvastatin 20 Mg Tablet 20 Mg PO HS Lisinopril 20 Mg Tablet 20 Mg PO QEVNG Vitals/I & O Vital Sign - Last 24 Hours 11/30/16 11/30/16 11/30/16 11/30/16 15:30 15:57 17:26 19:00 Temp 97.5 96.4 97.5 96.4 Pulse 115 123 91 109 Resp 24 18 B/P (MAP) 119/79 128/78 (95) 114/69 123/72 (89) Pulse Ox 95 96 O2 Delivery Nasal Cannula Nasal Cannula O2 Flow Rate 3.0 11/30/16 11/30/16 11/30/16 12/01/16 19:50 21:09 23:00 03:00 Temp 96.8 96.5 96.8 96.5 Pulse 97 113 102 Resp 18 18 B/P (MAP) 120/78 114/81 (92) 105/55 (72) Pulse Ox 91 92 O2 Delivery Nasal Cannula Nasal Cannula Nasal Cannula O2 Flow Rate 3.0 12/01/16 12/01/16 12/01/16 12/01/16 05:26 07:00 08:00 08:36 Temp 97.4 97.4 Pulse 110 88 123 Resp 23 B/P (MAP) 116/62 120/73 (89) 120/73 Pulse Ox 95 O2 Delivery Nasal Cannula Nasal Cannula O2 Flow Rate 3.0 12/01/16 12/01/16 08:37 11:00 Temp 98.9 98.9 Pulse 123 91 Resp 22 B/P (MAP) 120/73 114/51 (72) Pulse Ox 97 O2 Delivery Nasal Cannula O2 Flow Rate 2.0 Intake and Output 11/30/16 11/30/16 12/01/16 15:00 23:00 07:00 Intake Total 820 ml 510 ml Output Total 1620 ml Balance -800 ml 510 ml KHURRAM COMBS MD December 01, 2016 12:26
[2016-12-01 14:38] VITALS: BP 112/73
[2016-12-01] MEDS: RIVAROXABAN 10 MG TABLET. PO SCH (17:26)
[2016-12-01] MEDS: TAMSULOSIN 0.4 MG CAP.ER.24H. PO SCH (17:27)
[2016-12-01] MEDS: LISINOPRIL 20 MG TABLET PO SCH (17:31)
[2016-12-01 19:25] VITALS: BP 115/73
[2016-12-01] MEDS: ATORVASTATIN CALCIUM 20 MG TABLET PO SCH (21:29)
[2016-12-01 23:25] VITALS: BP 114/70
[2016-12-02 03:25] VITALS: BP 118/65
[2016-12-02 05:31] LABS: ANION GAP 6 (6-14); GFR 53.7
[2016-12-02] MEDS: dilTIAZem HCL 30 MG TABLET PO SCH ×2 (06:21→13:29)
[2016-12-02 07:00] VITALS: BP 118/69
[2016-12-02 07:40] LABS: BLOOD UREA NITROGEN 1 mg/dL (8-26); CALCIUM 8.2 mg/dL (8.5-10.1); GLUCOSE 125 mg/dL (70-99)
[2016-12-02 07:41] LABS: CARBON DIOXIDE 30 mmol/L (21-32); CHLORIDE 100 mmol/L (98-107); CREATININE 1.3 mg/dL (0.7-1.3); MAGNESIUM 1.6 mg/dL (1.8-2.4); POTASSIUM 3.5 mmol/L (3.5-5.1); SODIUM 136 mmol/L (136-145)
[2016-12-02] MEDS: INSULIN ASPART 300 UNITS/3 ML INSULN.PEN SQ SCH ×2 (08:00→12:00)
--- NOTE | 2016-12-02 09:46 | PDOC ---
PROGRESS NOTES Chief Complaint Chief Complaint Atrial fibrillation w/ RVR ASSESSMENT AND PLAN: 1. Afib w/ RVR: rate not controlled, on OAC, Digoxin, Metoprolol and Cardizem , possible cardioversion in AM, if not contorted. 2. CHF: systolic (EF <20%). IV Lasix. s/p cardiac cath, BM stent- RCA on 11/28, continue diuresis, Monitor renal functions 3. HTN: well controlled on BB, DESTINI-I 4. OAC: started on Xarelto 5. DM: ISS. HgbA1c better, 6.8 6. HLD: well controlled on statin 7. Hyponatremia: resolved. 8. CKD3: stable. History of Present Illness History of Present Illness better tachy no chest pain no fever Vitals Vitals Vital Signs Date Time Temp Pulse Resp B/P (MAP) Pulse Ox O2 Delivery O2 Flow Rate FiO2 12/02/16 07:00 97.4 83 20 118/69 (85) 96 Nasal Cannula 97.4 12/02/16 03:25 3.0 Physical Exam General: Alert, Oriented X3, mild distress Heart: Other (irreg. irreg.) Lungs: Clear Abdomen: Normal bowel sounds Extremities: No clubbing, Normal pulses, Other (1-2+ edema LE) Skin: No breakdown, No significant lesion Labs LABS Laboratory Tests Test 12/01/16 10:32 12/01/16 17:04 12/01/16 20:39 12/02/16 03:05 Glucose (Fingerstick) 159 mg/dL (70-99) 123 mg/dL (70-99) 162 mg/dL (70-99) Sodium Level 136 mmol/L (136-145) Potassium Level 3.5 mmol/L (3.5-5.1) Chloride Level 100 mmol/L (98-107) Carbon Dioxide Level 30 mmol/L (21-32) Anion Gap 6 (6-14) Blood Urea Nitrogen 1 mg/dL (8-26) Creatinine 1.3 mg/dL (0.7-1.3) Estimated GFR (Cockcroft-Gault) 53.7 Glucose Level 125 mg/dL (70-99) Calcium Level 8.2 mg/dL (8.5-10.1) Magnesium Level 1.6 mg/dL (1.8-2.4) Digoxin Level 0.3 ng/mL (0.9-2.0) Digoxin Last Dose Date 11/30/16 Digoxin Last Dose Time 1700 Test 12/02/16 07:50 Glucose (Fingerstick) 118 mg/dL (70-99) Assessment and Plan Assessmemt and Plan Problems Medical Problems: (1) Acute congestive heart failure Status: Acute (2) Atrial fibrillation Status: Acute (3) Mild protein malnutrition Status: Acute (4) Pulmonary edema Status: Acute Problems: Comment Review of Relevant I have reviewed the following items wander (where applicable) has been applied. Labs Laboratory Tests Test 11/30/16 17:10 11/30/16 21:06 12/01/16 07:37 12/01/16 10:32 Glucose (Fingerstick) 119 mg/dL (70-99) 135 mg/dL (70-99) 107 mg/dL (70-99) 159 mg/dL (70-99) Test 12/01/16 17:04 12/01/16 20:39 12/02/16 03:05 12/02/16 07:50 Glucose (Fingerstick) 123 mg/dL (70-99) 162 mg/dL (70-99) 118 mg/dL (70-99) Sodium Level 136 mmol/L (136-145) Potassium Level 3.5 mmol/L (3.5-5.1) Chloride Level 100 mmol/L (98-107) Carbon Dioxide Level 30 mmol/L (21-32) Anion Gap 6 (6-14) Blood Urea Nitrogen 1 mg/dL (8-26) Creatinine 1.3 mg/dL (0.7-1.3) Estimated GFR (Cockcroft-Gault) 53.7 Glucose Level 125 mg/dL (70-99) Calcium Level 8.2 mg/dL (8.5-10.1) Magnesium Level 1.6 mg/dL (1.8-2.4) Digoxin Level 0.3 ng/mL (0.9-2.0) Digoxin Last Dose Date 11/30/16 Digoxin Last Dose Time 1700 Laboratory Tests Test 12/01/16 10:32 12/01/16 17:04 12/01/16 20:39 12/02/16 03:05 Glucose (Fingerstick) 159 mg/dL (70-99) 123 mg/dL (70-99) 162 mg/dL (70-99) Sodium Level 136 mmol/L (136-145) Potassium Level 3.5 mmol/L (3.5-5.1) Chloride Level 100 mmol/L (98-107) Carbon Dioxide Level 30 mmol/L (21-32) Anion Gap 6 (6-14) Blood Urea Nitrogen 1 mg/dL (8-26) Creatinine 1.3 mg/dL (0.7-1.3) Estimated GFR (Cockcroft-Gault) 53.7 Glucose Level 125 mg/dL (70-99) Calcium Level 8.2 mg/dL (8.5-10.1) Magnesium Level 1.6 mg/dL (1.8-2.4) Digoxin Level 0.3 ng/mL (0.9-2.0) Digoxin Last Dose Date 11/30/16 Digoxin Last Dose Time 1700 Test 12/02/16 07:50 Glucose (Fingerstick) 118 mg/dL (70-99) Microbiology 11/29/16 Urine Culture - Preliminary, Resulted 11/29/16 Urine Culture Result 1 (MARITA) - Preliminary, Resulted Medications Current Medications Sodium Chloride 1,000 ml @ 60 mls/hr [id number] IV Last administered on 19:42; Start 11/25/16 at 19:15; Stop 11/26/16 at 11:54; Status DC Furosemide (Lasix) 40 mg 1X ONCE IVP Last administered on 11/25/16 19:42; Start 11/25/16 at 19:30; Stop 11/25/16 at 19:31; Status DC Ondansetron HCl (Zofran) 4 mg PRN Q8HRS PRN IV NAUSEA/VOMITING; Start 11/25/16 at 20:45; Stop 11/26/16 at 20:44; Status DC Sodium Chloride 1,000 ml @ 60 mls/hr [id number] IV ; Start 11/25/16 at 20:42; Stop 11/26/16 at 20:41; Status DC Acetaminophen (Tylenol) 650 mg PRN Q4HRS PRN PO FEVER; Start 11/25/16 at 20:45 ; Stop 11/26/16 at 20:44; Status DC Alprazolam (Xanax) 0.5 mg PRN Q6HRS PRN PO ANXIETY / AGITATION Last administered on 11/30/16 08:25; Start 11/26/16 at 00:00; Stop 11/30/16 at 12:57 ; Status DC Lisinopril (Prinivil) 20 mg QEVNG PO Last administered on 11/29/16 18:19; Start 11/26/16 at 18:00; Stop 11/30/16 at 13:05; Status DC Simvastatin (Zocor) 20 mg HS PO ; Start 11/26/16 at 21:00; Stop 11/26/16 at 21: 00; Status DC Tamsulosin HCl (Flomax) 0.4 mg QEVNG PO Last administered on 12/01/16 17:27; Start 11/26/16 at 18:00 Aspirin (Children'S Aspirin) 81 mg DAILYWBKFT PO Last administered on 08:57; Start 11/26/16 at 08:00; Stop 11/28/16 at 13:19; Status DC Potassium Chloride (Klor-Con) 40 meq 1X ONCE PO Last administered on 11:08; Start 11/26/16 at 10:30; Stop 11/26/16 at 10:31; Status DC Furosemide (Lasix) 40 mg DAILY IVP Last administered on 12/01/16 10:05; Start 11/26/16 at 13:00 Potassium Chloride (Klor-Con) 20 meq DAILYWBKFT PO Last administered on 09:31; Start 11/26/16 at 13:00; Stop 11/30/16 at 08:42; Status DC Metoprolol Succinate (Toprol Xl) 75 mg DAILY PO Last administered on 11/27/16 08:32; Start 11/26/16 at 13:00; Stop 11/27/16 at 09:36; Status DC Magnesium Sulfate/ Dextrose 50 ml @ 25 mls/hr 1X ONCE IV Last administered on 11/26/16 12:25; Start 11/26/16 at 12:00; Stop 11/26/16 at 13:59; Status DC Insulin Aspart (NovoLOG) 0-5 UNITS TIDWMEALS SQ ; Start 11/26/16 at 17:00 Dextrose (Dextrose 50%-Water Syringe) 12.5 gm PRN Q15MIN PRN IV SEE COMMENTS; Start 11/26/16 at 14:15 Rivaroxaban (Xarelto) 15 mg BIDWMEALS PO Last administered on 11/26/16 17:18; Start 11/26/16 at 17:00; Stop 11/27/16 at 08:23; Status DC Info (Anti-Coagulation Monitoring By Pharmacy) 1 each PRN DAILY PRN MC SEE COMMENTS Last administered on 11/30/16 07:22; Start 11/26/16 at 14:15 Enoxaparin Sodium (Lovenox Per Pharmacy Treatment Dosing) 1 each PRN DAILY PRN MC SEE COMMENTS; Start 11/26/16 at 15:30; Stop 11/29/16 at 11:58; Status DC Enoxaparin Sodium (Lovenox 100mg Syringe) 100 mg Q12HR SQ Last administered on 11/29/16 09:31; Start 11/26/16 at 21:00; Stop 11/29/16 at 11:58; Status DC Nicotine (Nicoderm Cq 21mg) 1 patch DAILY TD Last administered on 12/01/16 08: 37; Start 11/26/16 at 19:00 Nicotine (Nicoderm Cq 21mg) 1 patch 1X ONCE TD ; Start 11/26/16 at 18:45; Stop 11/26/16 at 18:46; Status UNV Atorvastatin Calcium (Lipitor) 20 mg HS PO Last administered on 12/01/16 21:29 ; Start 11/26/16 at 21:00 Metoprolol Succinate (Toprol Xl) 100 mg DAILY PO Last administered on 08:58; Start 11/28/16 at 09:00; Stop 11/29/16 at 11:47; Status DC Furosemide (Lasix) 40 mg 1X ONCE IVP Last administered on 11/27/16 14:42; Start 11/27/16 at 14:00; Stop 11/27/16 at 14:01; Status DC Potassium Chloride (Klor-Con) 40 meq 1X ONCE PO Last administered on 12:52; Start 11/27/16 at 11:15; Stop 11/27/16 at 11:16; Status DC Metoprolol Tartrate (Lopressor) 25 mg 1X ONCE PO Last administered on 5/17/ 17at 12:50; Start 11/27/16 at 11:15; Stop 11/27/16 at 11:16; Status DC Lidocaine HCl 20 ml STK-MED ONCE .ROUTE ; Start 11/28/16 at 11:27; Stop at 11:28; Status DC Heparin Sodium/ Sodium Chloride 1,000 ml @ As Directed STK-MED ONCE .ROUTE ; Start 11/28/16 at 11:27; Stop 11/28/16 at 11:28; Status DC Heparin Sodium/ Sodium Chloride 1,000 unit 1X ONCE IART Last administered on 13:10; Start 11/28/16 at 12:00; Stop 11/28/16 at 12:03; Status DC Midazolam HCl (Versed) 2 mg 1X ONCE IV ; Start 11/28/16 at 12:00; Stop at 12:03; Status DC Fentanyl Citrate (Fentanyl 2ml Vial) 100 mcg 1X ONCE IV ; Start 11/28/16 at 12: 00; Stop 11/28/16 at 12:03; Status DC Iohexol (Omnipaque 300 Mg/ml) 100 ml 1X ONCE IART Last administered on 13:11; Start 11/28/16 at 12:00; Stop 11/28/16 at 12:03; Status DC Lidocaine HCl 20 ml 1X ONCE IJ Last administered on 11/28/16 13:11; Start at 12:00; Stop 11/28/16 at 12:03; Status DC Iohexol (Omnipaque 300 Mg/ml) 100 ml STK-MED ONCE .ROUTE ; Start 11/28/16 at 12: 14; Stop 11/28/16 at 12:15; Status DC Bivalirudin (Angiomax) 250 mg STK-MED ONCE IV ; Start 11/28/16 at 12:21; Stop at 12:22; Status DC Heparin Sodium/ Sodium Chloride 500 ml @ As Directed STK-MED ONCE .ROUTE ; Start 11/28/16 at 12:29; Stop 11/28/16 at 12:30; Status DC Iohexol (Omnipaque 300 Mg/ml) 100 ml STK-MED ONCE .ROUTE ; Start 11/28/16 at 12: 32; Stop 11/28/16 at 12:33; Status DC Dopamine HCl/ Dextrose 0 ml @ As Directed STK-MED ONCE IV ; Start 11/28/16 at 12 :33; Stop 11/28/16 at 12:34; Status DC Bivalirudin (Angiomax) 250 mg 1X ONCE IV Last administered on 11/28/16 13:12 ; Start 11/28/16 at 13:00; Stop 11/28/16 at 13:01; Status DC Ticagrelor (Brilinta) 90 mg STK-MED ONCE .ROUTE ; Start 11/28/16 at 13:00; Stop 11/28/16 at 13:01; Status DC Ticagrelor (Brilinta) 180 mg 1X ONCE PO Last administered on 11/28/16 13:10; Start 11/28/16 at 13:00; Stop 11/28/16 at 13:04; Status DC Sodium Chloride (Normal Saline Flush) 3 ml QSHIFT PRN IV AFTER MEDS AND BLOOD DRAWS; Start 11/28/16 at 13:15 Sodium Chloride 1,000 ml @ 50 mls/hr Q20H IV Last administered on 11/28/16 14 :40; Start 11/28/16 at 13:13 Aspirin (Ecotrin) 81 mg DAILYWBKFT PO Last administered on 12/01/16 08:35; Start 11/29/16 at 08:00 Ticagrelor (Brilinta) 90 mg BID PO Last administered on 12/01/16 21:30; Start 11/29/16 at 09:00 Acetaminophen (Tylenol) 650 mg PRN Q6HRS PRN PO MILD PAIN / TEMP; Start at 13:15 Fentanyl Citrate (Fentanyl 2ml Vial) 50 mcg PRN Q1HR PRN IV MODERATE OR SEVERE PAIN; Start 11/28/16 at 13:15 Nitroglycerin (Nitrostat) 0.4 mg PRN Q5MIN PRN SL CHEST PAIN; Start 11/28/16 at 13:15 Amiodarone HCl 150 mg/Dextrose 103 ml @ 10 mls/min 1X PRN PRN IV FOR VENTRICULAR TACHYCARDIA; Start 11/28/16 at 13:15 Lidocaine HCl (Lidocaine HCl 2% Abboject) 100 mg 1X PRN PRN IV FOR VENTRICULAR TACHYCARDIA; Start 11/28/16 at 13:15 Atropine Sulfate 0.5 mg PRN 1X PRN IV BRADYCARDIA; Start 11/28/16 at 13:15 Fentanyl Citrate (Fentanyl 2ml Vial) 25 mcg 1X ONCE IM ; Start 11/28/16 at 14: 11; Stop 11/28/16 at 14:12; Status Cancel Digoxin (Lanoxin) 125 mcg DAILY PO Last administered on 12/01/16 08:36; Start 11/29/16 at 12:00; Stop 12/01/16 at 12:31; Status DC Metoprolol Succinate (Toprol Xl) 50 mg DAILY PO Last administered on 12/01/16 08:37; Start 11/29/16 at 12:00 Rivaroxaban (Xarelto) 20 mg DAILYWSUP PO Last administered on 12/01/16 17:26; Start 11/29/16 at 17:00 Potassium Chloride (Klor-Con) 40 meq 1X ONCE PO Last administered on 12:18; Start 11/29/16 at 12:30; Stop 11/29/16 at 12:31; Status DC Digoxin (Lanoxin) 250 mcg 1X ONCE IV Last administered on 11/29/16 22:54; Start 11/29/16 at 22:45; Stop 11/29/16 at 22:46; Status DC Potassium Chloride (Klor-Con) 80 meq 1X ONCE PO Last administered on 05:47; Start 11/30/16 at 05:45; Stop 11/30/16 at 05:46; Status DC Potassium Chloride (Klor-Con) 40 meq DAILY PO Last administered on 12/01/16 10 :06; Start 12/01/16 at 09:00 Potassium Chloride (Klor-Con) 40 meq 1X ONCE PO ; Start 11/30/16 at 10:30; Stop 11/30/16 at 10:30; Status DC Alprazolam (Xanax) 0.5 mg 1X ONCE PO Last administered on 11/30/16 12:13; Start 11/30/16 at 12:15; Stop 11/30/16 at 12:16; Status DC Alprazolam (Xanax) 0.5 mg PRN Q4HRS PRN PO ANXIETY / AGITATION Last administered on 12/01/16 21:30; Start 11/30/16 at 13:00 Lisinopril (Prinivil) 5 mg QEVNG PO Last administered on 12/01/16 17:31; Start 11/30/16 at 18:00 Diltiazem HCl (Cardizem) 30 mg Q8HRS PO Last administered on 12/02/16 06:21; Start 11/30/16 at 14:00 Active Scripts Active Cefepime Hcl 1 Gm Vial 1 Gm IJ Q12HR 5 Days Alprazolam 0.25 Mg Tablet 0.5 Mg PO PRN Q6HRS PRN Reported Diltiazem 24HR Cd (Diltiazem Hcl) 180 Mg Cap.er.24h 1 Cap PO DAILY Aspir 81 (Aspirin) 81 Mg Tablet.dr 1 Tab PO DAILY Atorvastatin Calcium 20 Mg Tablet 20 Mg PO HS Amlodipine Besylate 5 Mg Tablet 5 Mg PO DAILY Ventolin Hfa Inhaler (Albuterol Sulfate) 18 Gm Hfa.aer.ad 2 Puff INH QID PRN Xarelto (Rivaroxaban) 20 Mg Tablet 20 Mg PO DAILY Metoprolol Tartrate 25 Mg Tablet 25 Mg PO BID Tamsulosin Hcl 0.4 Mg Cap.er.24h 1 Cap PO QEVNG Simvastatin 20 Mg Tablet 20 Mg PO HS Lisinopril 20 Mg Tablet 20 Mg PO QEVNG Vitals/I & O Vital Sign - Last 24 Hours 12/01/16 12/01/16 12/01/16 12/01/16 11:00 14:28 14:38 17:31 Temp 98.9 97.4 98.9 97.4 Pulse 91 108 113 93 Resp B/P (MAP) 114/51 (72) 112/73 112/73 (86) 118/62 Pulse Ox 97 91 O2 Delivery Nasal Cannula Nasal Cannula O2 Flow Rate 2.0 12/01/16 12/01/16 12/01/16 12/01/16 19:25 19:55 21:30 23:25 Temp 97.4 97.5 97.4 97.5 Pulse 95 95 113 Resp 20 B/P (MAP) 115/73 (87) 115/73 114/70 (85) Pulse Ox 99 92 O2 Delivery Nasal Cannula Nasal Cannula Nasal Cannula O2 Flow Rate 3.0 3.0 3.0 12/02/16 12/02/16 12/02/16 03:25 06:21 07:00 Temp 97.8 97.4 97.8 97.4 Pulse 85 98 83 Resp 20 20 B/P (MAP) 118/65 (82) 118/65 118/69 (85) Pulse Ox 92 96 O2 Delivery Nasal Cannula Nasal Cannula O2 Flow Rate 3.0 Intake and Output 12/01/16 12/01/16 12/02/16 15:00 23:00 07:00 Intake Total 560 ml 100 ml Output Total 555 ml Balance 5 ml 100 ml ALLEN SALCEDO MD December 02, 2016 09:46
[2016-12-02] MEDS: TICAGRELOR 90 MG TABLET. PO SCH (10:36)
[2016-12-02] MEDS: POTASSIUM CHLORIDE 20 MEQ TABLET.ER. PO SCH (10:37)
[2016-12-02] MEDS: ALPRAZolam 0.5 MG TABLET PO PRN ×2 (10:37→13:29)
[2016-12-02 10:38] VITALS: BP 135/77
[2016-12-02] MEDS: METOPROLOL SUCC 24HR ER 50 MG TAB.ER.24H. PO SCH (10:38)
[2016-12-02] MEDS: NICOTINE 21MG PATCH. TD SCH (10:39)
[2016-12-02] MEDS ORDERED: FUROSEMIDE 40 MG TABLET. PO SCH (11:00)
--- NOTE | 2016-12-02 11:34 | PDOC ---
CARDIO Progress Notes Date and Time Date of Service 12/02/16 Time of Evaluation 1130 Subjective Subjective: No Chest Pain, No Palpitations, Other (minimal SOA with exertion) Vitals Vitals Vital Signs Date Time Temp Pulse Resp B/P (MAP) Pulse Ox O2 Delivery O2 Flow Rate FiO2 12/02/16 10:38 107 135/77 12/02/16 07:00 97.4 20 96 Nasal Cannula 97.4 12/02/16 03:25 3.0 Weight Weight [ ] Input and Output Intake and Output Intake and Output 12/02/16 06:59 Intake Total 660 ml Output Total 555 ml Balance 105 ml Intake Oral 660 ml Output Urine Total 555 ml # Voids 2 # Bowel Movements 1 Laboratory Labs Laboratory Tests Test 12/01/16 17:04 12/01/16 20:39 12/02/16 03:05 12/02/16 07:50 Glucose (Fingerstick) 123 mg/dL (70-99) 162 mg/dL (70-99) 118 mg/dL (70-99) Sodium Level 136 mmol/L (136-145) Potassium Level 3.5 mmol/L (3.5-5.1) Chloride Level 100 mmol/L (98-107) Carbon Dioxide Level 30 mmol/L (21-32) Anion Gap 6 (6-14) Blood Urea Nitrogen 1 mg/dL (8-26) Creatinine 1.3 mg/dL (0.7-1.3) Estimated GFR (Cockcroft-Gault) 53.7 Glucose Level 125 mg/dL (70-99) Calcium Level 8.2 mg/dL (8.5-10.1) Magnesium Level 1.6 mg/dL (1.8-2.4) Digoxin Level 0.3 ng/mL (0.9-2.0) Digoxin Last Dose Date 11/30/16 Digoxin Last Dose Time 1700 Microbiology Micro Microbiology 11/29/16 Urine Culture - Preliminary, Resulted 11/29/16 Urine Culture Result 1 (MARITA) - Preliminary, Resulted Physical Exam HEENT: Neck Supple W Full Motion Chest: Symmetric LUNGS: Other (bibasilar crackles) Heart: S1S2, murmurs (2/6 systolic murmur ), irregularly irregular (AFIB and RVR with exertion) Abdomen: Soft N/T Extremities: 2+ Dorsalis Pedis, No Calf Tenderness, Other (1+ bialteral LE edema ) Neurology: alert, oriented, follow commands Assessment Assessment 1. Acute on chronic systolic heart failure with ICM Echo 11/25/16 with depressed LV function; EF 20% compensated. Convert diuresis to oral. LifeVest upon discharge will repeat echo in 3-4 months to evaluation need for ICD in prevention of SCD 2. CAD s/p PCI/BMS to RCA DAPT with ASA and Brilinta continue secondary prevention/ risk stratification modification 3. Dyspnea secondary to a/c HF improved with diuresis 4. Atrial Fibrillation rate better controlled with addition of Cardizem. continue Xarelto for stroke prevention plan for outpatient EBONIE with CV after 3 week of OAC patient to f/u in our office in 2 weeks as scheduled. 5. Hypertension controlled with meds 6. Hyperlipidemia LDL=36 statin therapy 7. Hypokalemia resolved. 8. Diabetes management per PCP 9. Hypomagnesemia recommend oral replacement upon discharge- d/w PCP MAMI SERRATO APRN December 02, 2016 11:34
[2016-12-02] MEDS ORDERED: ATOR20TA58 PO (12:13)
[2016-12-02] MEDS ORDERED: FURO40TA4 PO (12:13)
[2016-12-02] MEDS ORDERED: METO50TA10 PO (12:13)
[2016-12-02] MEDS ORDERED: LISI-334 PO (12:13)
[2016-12-02] MEDS ORDERED: ASPI81TA9 PO (12:13)
[2016-12-02] MEDS ORDERED: POTA20TA4 PO (12:13)
[2016-12-02] MEDS ORDERED: RIVA10TA PO (12:13)
[2016-12-02] MEDS ORDERED: DILT30TA26 PO (12:13)
[2016-12-02] MEDS ORDERED: TICA90TA PO (12:13)
[2016-12-02] MEDS: ASPIRIN ENTERIC COATED 81 MG TABLET.DR. PO SCH (12:47)
[2016-12-02] MEDS ORDERED: MAGNESIUM OXIDE 400 MG TABLET PO ONE (17:00)
--- NOTE | 2016-12-03 17:44 | CARD ---
APPROVED REPORT Procedures Selective coronary angiogram Aortic root injection Bare-metal stent placement to the right coronary artery. The patient is a 76-year-old male with relatively new onset of atrial fibrillation. He was found to h ave a severe cardiomyopathy with an ejection fraction of less than 20%. In this setting catheterizati on was recommended to evaluate the patient's coronary arteries. Risks and benefits were discussed. Th e patient agreed to proceed. After informed consent was obtained the patient was brought to the heart catheterization lab. The are a of the right femoral artery was prepared in the usual manner with Betadine, sterile draping and loc al anesthetic. An 18-gauge needle was used to enter the left the right femoral artery, a wire placed and a 6 Macanese sheath placed over the wire. Initial attempts to place a JL4 showed that the aortic ro ot was enlarged. A JL 5 was improved but still gave inadequate opacification. A JL 6 was able to anjana nly engage the left system and sequential injections in various views were obtained. A pigtail cathet er was advanced the ascending aorta and an aortic root injection was performed in a 30 GEORGIAN angulatio n. A 6 Macanese Raheem right catheter was used to engage the right coronary artery. At this time the patient was found to have no severe disease in the left system but 85% proximal to mid right coronary artery lesion. We we proceeded to revascularize the vessel. A 6 Macanese JR 4 guide was used to engage the right coronary system. Angiomax as per protocol was give n. A PT wire was used to cross the lesion. Initial dilatation with a 2.5 x 15 mm balloon with 3 infla tions at 8 semaj for 20 seconds. An attempt to place a 3.5 x 28 mm multi vision stent was unsuccessful with the stent not being able to cross the area of the calcified lesion. It was removed without being inflated. A 3.0 x 15 trek balloon was then used for an additional 3 inflations at 8 semaj for 20 secon ds. A 3.5 x 18 MultiLink vision bare metal stent was able to cross the lesion. It was deployed with o ne inflation at 16 semaj for 16 seconds. Residual lesion was 0%. The wire and the guiding system were r emoved from the patient. Injection of the sheath showed normal placement. The sheath was removed and sealed with an Angio-Seal product. The patient was moved to the holding area in stable condition. Findings. Coronaries. Left main. The left main had no lesions. Left anterior descending. The LAD had diffuse mid 40-50% lesions. Left circumflex. The left circumflex started on a large vessel with a mid taper. It had a mid 35% le caity. Right coronary artery. The right coronary was a moderately large calcified vessel with a proximal to mid 85% lesion. Aortic root. The aortic root showed a moderately enlarged aortic root with mild aortic insufficiency. <Conclusion> Mild to moderate disease in the LAD and left circumflex system. Severe single-vessel coronary disease with 85% lesion in the right coronary artery. Successful bare metal stent placement to the right coronary artery decreasing the 85% lesion to 0%. Moderate aortic root dilatation.
== END 2016-12-02 17:00 | disposition home or self-care (01) | DRG 248 ==
LOC: ER 17:44 → 2 NORTH 19:00
PROVIDERS: ADMIT Internal Medicine Hematology & Oncology; ATTEND Internal Medicine Hematology & Oncology
PROC: 02703DZ Dilation of Coronary Artery, One Artery with Intraluminal Device, Percutaneous Approach (ICD-10-PCS; principal; 2016-11-28)
PROC: 4A023N7 Measurement of Cardiac Sampling and Pressure, Left Heart, Percutaneous Approach (ICD-10-PCS; 2016-11-28)
PROC: B201YZZ Plain Radiography of Multiple Coronary Arteries using Other Contrast (ICD-10-PCS; 2016-11-28)
DX: I13.0 Hypertensive heart and chronic kidney disease with heart failure and stage 1 through stage 4 chronic kidney disease, or unspecified chronic kidney disease (principal); I50.23 Acute on chronic systolic (congestive) heart failure; J96.00 Acute respiratory failure, unspecified whether with hypoxia or hypercapnia; E87.1 Hypo-osmolality and hyponatremia; E44.1 Mild protein-calorie malnutrition; I42.9 Cardiomyopathy, unspecified; I48.0 Paroxysmal atrial fibrillation; F17.210 Nicotine dependence, cigarettes, uncomplicated; E78.00 Pure hypercholesterolemia, unspecified; E78.5 Hyperlipidemia, unspecified; E83.42 Hypomagnesemia; E87.6 Hypokalemia; I25.10 Atherosclerotic heart disease of native coronary artery without angina pectoris; I95.9 Hypotension, unspecified; I49.3 Ventricular premature depolarization; N18.3 Chronic kidney disease, stage 3 (moderate); E11.22 Type 2 diabetes mellitus with diabetic chronic kidney disease; Z79.01 Long term (current) use of anticoagulants; Z88.1 Allergy status to other antibiotic agents; Z80.9 Family history of malignant neoplasm, unspecified; Z82.49 Family history of ischemic heart disease and other diseases of the circulatory system; Z79.899 Other long term (current) drug therapy; Z79.1 Long term (current) use of non-steroidal anti-inflammatories (NSAID); Z68.26 Body mass index [BMI] 26.0-26.9, adult
CPT/HCPCS: 36415; 71010; 71020; 80048; 80053; 80061; 80162; 81001; 82553; 82947; 83036; 83735; 83880; 84484; 85027; 87086; 87186; 92928; 93005; 93454; 93567; 93971; 94620; 96361; 96374; C1725; C1769; C1771; C1877; C1887; C1892; G0269; J0583; J1160; J1650; J1815; J1940; J7030; J7060; Q9967; 99285-25

== ENCOUNTER 2017-01-22 10:02 | Day surgery (SDC) | payer BC ==
[~2017-01-22 10:02] MED LIST changes: +AMLO5TAB2 PO; +ASPI-482 PO; +ASPI-612 PO; +ASPI-630 PO; -ASPI81TA2 PO; +ATOR20TA58 PO; +DILT180C2 PO; +DILT180C29 PO; +DILT30TA26 PO; +FURO40TA4 PO; +HYDROmorphone 2 MG/ML VIAL IV PRN; +IV RINGERS,LACTATED 1000ML 1,000 ML IV SCH; +LIDOCAINE 1% 1 ML SYRINGE. ID PRN; +METO25TA4 PO; +METO25TA9 PO; +METO50TA10 PO; +MORPHINE SULFATE 2 MG/ML DISP.SYRIN. IV PRN; +ONDANSETRON PF 4 MG/2 ML VIAL. IV PRN; +POTA20TA4 PO; +PROCHLORPERAZINE 10 MG/2 ML VIAL. IV PRN; +RIVA10TA PO; +RIVA20TA2 PO; +TICA90TA PO; +VENTOLIN HFA18 GM INH; +fentaNYL PF VIAL 100 MCG/2 ML VIAL IV PRN
--- NOTE | 2017-01-22 10:46 | EKG ---
[facility] [address] [place] [address] Test Date: 2017-01-22 Test Time: 10:48:20 Pat Name: KHURRAM BURGER Department: Room: Gender: M Acidity Tester: : 1940 Requested By: KHURRAM COMBS Order Number: [id number] Reading MD: Measurements Intervals [place] Rate: 79 P: [place]: QRS: -26 QRSD: 104 T: 19 QT: 420 QTc: 483 Interpretive Statements IRREGULAR RHYTHM, NO P-WAVE FOUND LEFTWARD AXIS QRS(T) CONTOUR ABNORMALITY CONSISTENT WITH SEPTAL INFARCT AGE UNDETERMINED ABNORMAL ECG RI6.01 Compared to ECG 11/28/2016 14:01:52 Left-axis deviation now present Myocardial infarct finding now present Atrial fibrillation no longer present Ventricular premature complex(es) no longer present
[2017-01-22] MEDS ORDERED: PROPOFOL 20 ML IV ONE (11:35)
--- NOTE | 2017-01-22 12:06 | EKG ---
[facility] [address] [place] [address] Test Date: 2017-01-22 Test Time: 11:59:57 Pat Name: KHURRAM BURGER Department: Room: Gender: M National Sales: : 1940 Requested By: KHURRAM COMBS Order Number: [id number] Reading MD: Measurements Intervals [place] Rate: 55 P: 51 MO: 200 QRS: -19 QRSD: 112 T: 25 QT: 474 QTc: 456 Interpretive Statements SINUS RHYTHM ATRIAL PREMATURE COMPLEX(ES) LEFTWARD AXIS R-S TRANSITION ZONE IN V LEADS DISPLACED TO THE LEFT T ABNORMALITY IN ANTEROLATERAL LEADS ABNORMAL ECG RI6.01 No previous ECG available for comparison
[2017-01-22 12:27] VITALS: BP 111/62
--- NOTE | 2017-01-23 20:57 | PDOC4 ---
Operative Note Operative Note Cardioversion. The patient is a 76-year-old male with a history of a cardiomyopathy as well as atrial fibrillation. He has been treated with anticoagulation for greater than 6 weeks as well as rate control medications for his atrial fibrillation. He was scheduled for an outpatient cardioversion attempt. Risks and benefits were discussed with the patient and he has agreed to proceed. Appropriate level of sedation were obtained through the anesthesiology service was also reviewed the patient. The patient was cardioverted from atrial fibrillation to a normal sinus rhythm with one discharge of 200 J of synchronized energy. He awoke normally postanesthesia. Conclusion. Successful cardioversion of atrial fibrillation to normal sinus rhythm. KHURRAM COMBS MD Jan 23, 2017 20:57
== END 2017-01-22 12:56 | disposition home or self-care (01) ==
LOC: SURG 10:02
PROVIDERS: ATTEND Internal Medicine Cardiovascular Disease
DX: I48.91 Unspecified atrial fibrillation (principal); I42.9 Cardiomyopathy, unspecified; I11.0 Hypertensive heart disease with heart failure; I50.9 Heart failure, unspecified; I25.10 Atherosclerotic heart disease of native coronary artery without angina pectoris; E78.00 Pure hypercholesterolemia, unspecified; M19.90 Unspecified osteoarthritis, unspecified site; F32.9 Major depressive disorder, single episode, unspecified; E11.36 Type 2 diabetes mellitus with diabetic cataract; F17.210 Nicotine dependence, cigarettes, uncomplicated; Z85.828 Personal history of other malignant neoplasm of skin; Z80.41 Family history of malignant neoplasm of ovary; Z98.42 Cataract extraction status, left eye; Z95.5 Presence of coronary angioplasty implant and graft; Z98.41 Cataract extraction status, right eye; Z79.01 Long term (current) use of anticoagulants; Z98.890 Other specified postprocedural states
CPT/HCPCS: 92960; 93005; J2704

== ENCOUNTER → 2017-02-26 | Outpatient (CLI) | payer BC ==
[~2017-02-26] MED LIST changes: +ALPR0.5T PO; +AMOX1TAB11 PO; +AMOX1TAB25 PO; -HYDROmorphone 2 MG/ML VIAL IV PRN; -IV RINGERS,LACTATED 1000ML 1,000 ML IV SCH; -LIDOCAINE 1% 1 ML SYRINGE. ID PRN; -MORPHINE SULFATE 2 MG/ML DISP.SYRIN. IV PRN; -ONDANSETRON PF 4 MG/2 ML VIAL. IV PRN; -PROCHLORPERAZINE 10 MG/2 ML VIAL. IV PRN; +TAMS0.4C97 PO; -fentaNYL PF VIAL 100 MCG/2 ML VIAL IV PRN
--- NOTE | 2017-02-26 14:01 | CARD ---
APPROVED REPORT EXAM: Two-dimensional and M-mode echocardiogram with Doppler and color Doppler. Other Information Quality : Average Rhythm : Atrial Fibrillation INDICATION Cardiomyopathy 2D DIMENSIONS RVDd3.9 (2.9-3.5cm)Left Atrium(2D)5.0 (1.6-4.0cm) IVSd0.9 (0.7-1.1cm)Aortic Root(2D)5.0 (2.0-3.7cm) LVDd5.8 (3.9-5.9cm)LVOT Diameter2.6 (1.8-2.4cm) PWd1.0 (0.7-1.1cm)LVDs5.7 (2.5-4.0cm) SV5.4 mlLVEF(%)20.1 (>50%) Aortic Valve AoV Peak Pepito.99.4cm/sAoV VTI14.9cm AO Peak GR.4.0mmHgLVOT Peak Pepito.80.3cm/s LVOT VTI 14.08cmAO Mean GR.2mmHg NORMAN (VMAX)4.15yd1IMS (VTI)5.05cm2 AI P 1/2 [id number] Mitral Valve MV E Gdwejpto84.3cm/sMV E Peak Gr.73mmHg MV DECEL [id number] A Goaxfenq56.6cm/s MV NUX24qsM/A Ratio0.6 MV A Egfpkobc228zkOER (PHT)3.15cm2 TDI E/Lateral E'4.7E/Medial E'6.4 Pulmonary Valve PV Peak Desaypot84.8cm/sPV Peak Grad.2mmHg RVOT VTI7.6cm Tricuspid Valve TR P. [id number]/sRAP HIYVONBK1puWr TR Peak Gr.75emSaVIMA76lsPz LEFT VENTRICLE The Left Ventricle is borderline dilated. There is normal left ventricular wall thickness. Left ventr icle systolic function is severely impaired. The Ejection Fraction is estimated at 20%. There is zabrina re global hypkineis. Unable to assess diastolic function. There is no ventricular septal defect visua lized. RIGHT VENTRICLE The right ventricle is mildly dilated. The right ventricular systolic function is normal. ATRIA The left atrium is borderline dilated. The right atrium is borderline dilated. The interatrial septum is intact with no evidence for an atrial septal defect or patent foramen ovale as noted on 2-D or Do ppler imaging. AORTIC VALVE The aortic valve is trileaflet. Doppler and Color Flow revealed mild to moderate aortic regurgitation . There is no significant aortic valvular stenosis. MITRAL VALVE The mitral valve leaflets are thickened. There is no mitral valve stenosis. Doppler and Color Flow re vealed mild mitral regurgitation. TRICUSPID VALVE The tricuspid valve is normal in structure and function. Doppler and Color Flow revealed mild tricusp id regurgitation. The PA pressure was estimated at 29 mmHg. There is no tricuspid valve stenosis. PULMONIC VALVE The pulmonic valve is not well visualized. Doppler and Color Flow revealed moderate pulmonic valvular regurgitation. There is no pulmonic valvular stenosis. GREAT VESSELS The aortic root is severely enlarged. Measuring 5.0 cm. The ascending aorta is dilated. Measuring 4.5 cm. Normal pulmonary venous flow (Doppler). The IVC is normal in size and collapses >50% with inspir ation. PERICARDIAL EFFUSION There is no evidence of significant pericardial effusion. Critical Notification Date: 02/26/2017 Time: 13:43 Other Discipline : Pooja Pulido and Reena Alcazar RN Critical Value: Yes <Conclusion> The Left Ventricle is borderline dilated. Left ventricle systolic function is severely impaired. The Ejection Fraction is estimated at 20%. There is severe global hypkineis. There is no significant aortic valvular stenosis. Doppler and Color Flow revealed mild to moderate aortic regurgitation. Doppler and Color Flow revealed mild mitral regurgitation. Doppler and Color Flow revealed mild tricuspid regurgitation. The PA pressure was estimated at 29 mmHg. The aortic root is severely enlarged. Measuring 5.0 cm. The ascending aorta is dilated. Measuring 4.5 cm.
== END | disposition home or self-care (01) ==
LOC: ECHO 12:29
PROVIDERS: ATTEND Internal Medicine Cardiovascular Disease
DX: I08.3 Combined rheumatic disorders of mitral, aortic and tricuspid valves (principal); I42.8 Other cardiomyopathies
CPT/HCPCS: 93306